=== PATIENT | female | born 1950 | race Caucasian/White ===

== ENCOUNTER 2018-07-11 07:13 | Day surgery (SDC) | payer MEDICARE, OTHER ==
[2018-07-11] VITALS (10 sets, daily range): BP systolic 110–130; BP diastolic 56–67
[~2018-07-11] VITALS: Ht 160 cm; Wt 51.7 kg
[~2018-07-11 07:13] MED LIST: AMIT-189 PO; COMBIVENT INH; Cefazolin 2GM/50ML dext iso,osmotic IVPB IV ONE; EPIN0.3P8 IM; MORP30TA60 PO; OXYC5CAP19 PO; SPIIN INH; VERA-1 PO; famotidine 20mg tablet PO ONE; ringers solution, lacted 1,000 ML IV SCH
[2018-07-11] MEDS ORDERED: ATRIN INH (08:19)
[2018-07-11] MEDS ORDERED: AMIT75TA2 PO (08:23)
[2018-07-11 08:24] LABS: BASOPHILS # (AUTO) 0.1 X10'3 (0-0.2); BASOPHILS % (AUTO) 0.8 % (0-1); EOSINOPHILS # (AUTO) 0.3 X10'3 (0-0.9); EOSINOPHILS % (AUTO) 3.9 % (0-6); LYMPHOCYTES # (AUTO) 1.6 X10'3 (1.1-4.8); LYMPHOCYTES % (AUTO) 24.3 % (21-51); MEAN CORPUSCULAR HGB CONC 32.9 % (33.0-36.5); MEAN PLATELET VOLUME 8.7 FL (7.4-10.4); MONOCYTES # (AUTO) 0.4 X10'3 (0-0.9); MONOCYTES % (AUTO) 6.4 % (2-12); NEUTROPHILS # (AUTO) 4.3 X10'3 (1.8-7.7); NEUTROPHILS % (AUTO) 64.6 % (42-75); PRE OP HEMATOCRIT 33.5 % (35.0-45.0); PRE OP PLATELET COUNT 248 X10'3 (140-440); RED BLOOD COUNT 4.09 X10'6 (4.20-5.60); RED CELL DISTRIBUTION WIDTH 15.8 % (11.5-14.5)
[2018-07-11] MEDS ORDERED: SENN1TAB28 PO (08:28)
[2018-07-11] MEDS ORDERED: ONDA4TAB6 PO (08:29)
[2018-07-11 08:35] LABS: ALBUMIN/GLOBULIN RATIO 0.8 (1.1-1.5); ALKALINE PHOSPHATASE 119 IU/L (46-116); BLOOD UREA NITROGEN 16 MG/DL (7-18); BUN/CREATININE RATIO 15.5 (6.6-38.0); CALCIUM 8.9 MG/DL (8.5-10.1); CHLORIDE 104 MMOL/L (99-107); CREATININE 1.03 MG/DL (0.40-0.90); PRE OP ALT 19 U/L (30-65); PRE OP ANION GAP 8 (8-16); PRE OP AST 22 U/L (10-37); PRE OP BILIRUB, TOTAL 0.3 MG/DL (0.0-1.0); PRE OP GLUCOSE 91 MG/DL (70-104); PRE OP POTASSIUM 4.1 MMOL/L (3.4-5.1); PRE OP SODIUM 139 MMOL/L (135-145); TOTAL CARBON DIOXIDE 26.8 MMOL/L (24-32); TOTAL PROTEIN 6.8 G/DL (6.4-8.2); eGFR 53 ML/MIN
[2018-07-11] MEDS ORDERED: verapamil SR 120mg (sust. release) tab PO STA (09:30)
[2018-07-11] MEDS ORDERED: ondansetron/PF 4mg/2ml inj IV ONE (09:30)
[2018-07-11] MEDS ORDERED: sevoflurane 250ml liquid IH ONE (10:51)
[2018-07-11] MEDS ORDERED: fentaNYL/PF 50MCG/1 ML 2ML syringe ONE (10:58)
[2018-07-11] MEDS ORDERED: propofol inj 20 ML IV ONE (10:58)
[2018-07-11] MEDS ORDERED: midazolam 2 mg/2 ml injection ONE (10:58)
[2018-07-11] MEDS ORDERED: ringers solution, lacted 1,000 ML IV SCH (12:08)
[2018-07-11] MEDS ORDERED: morphine 4 MG/ML inj SYRINge IV PRN ×2 (12:10)
[2018-07-11] MEDS ORDERED: proCHLORperazine 10 MG/2 ml inj IV PRN (12:10)
[2018-07-11] MEDS ORDERED: meperidine/PF 25mg/ml syringe IV PRN ×3 (12:10)
[2018-07-11] MEDS ORDERED: ondansetron/PF 4mg/2ml inj IV PRN (12:10)
== END 2018-07-11 12:50 | disposition home or self-care (01) ==
LOC: PAS 07:13
PROVIDERS: ATTEND Surgery
DX: T81.89XA Other complications of procedures, not elsewhere classified, initial encounter (principal); Y83.8 Other surgical procedures as the cause of abnormal reaction of the patient, or of later complication, without mention of misadventure at the time of the procedure; Y92.89 Other specified places as the place of occurrence of the external cause; G89.29 Other chronic pain; M19.90 Unspecified osteoarthritis, unspecified site; F41.8 Other specified anxiety disorders; I10 Essential (primary) hypertension; J44.9 Chronic obstructive pulmonary disease, unspecified; M06.9 Rheumatoid arthritis, unspecified; F17.210 Nicotine dependence, cigarettes, uncomplicated; F10.21 Alcohol dependence, in remission; K21.9 Gastro-esophageal reflux disease without esophagitis; Z88.5 Allergy status to narcotic agent; Z88.6 Allergy status to analgesic agent; Z91.048 Other nonmedicinal substance allergy status; Z91.030 Bee allergy status; Z87.01 Personal history of pneumonia (recurrent); Z87.11 Personal history of peptic ulcer disease; Z86.69 Personal history of other diseases of the nervous system and sense organs; Z79.891 Long term (current) use of opiate analgesic; Z98.41 Cataract extraction status, right eye; Z98.42 Cataract extraction status, left eye; Z90.710 Acquired absence of both cervix and uterus; Z88.8 Allergy status to other drugs, medicaments and biological substances; Z79.899 Other long term (current) drug therapy; Z98.890 Other specified postprocedural states; Z80.1 Family history of malignant neoplasm of trachea, bronchus and lung
CPT/HCPCS: 11042; 36415; 80053; 85025; A6446; A6449; J0690; J2250; J2405; J2704; J3010; J7120; A7000

== ENCOUNTER 2019-02-05 16:12 | Inpatient (IN) | payer MEDICARE, OTHER ==
[2019-02-05] VITALS (10 sets, daily range): BP systolic 106–148; BP diastolic 39–55
[~2019-02-05] VITALS: Ht 157.5 cm; Wt 60.8 kg
[~2019-02-05 16:12] MED LIST changes: -AMIT-189 PO; +AMIT75TA2 PO; +ATRIN INH; -COMBIVENT INH; -Cefazolin 2GM/50ML dext iso,osmotic IVPB IV ONE; +ONDA4TAB6 PO; +SENN1TAB28 PO; -SPIIN INH; -VERA-1 PO; +VERA240T12 PO; -famotidine 20mg tablet PO ONE; -ringers solution, lacted 1,000 ML IV SCH
[2019-02-05] MEDS ORDERED: normal saline 1000ml 1,000 ML IV ONE (16:13)
[2019-02-05] MEDS ORDERED: albuterol 2.5 MG/3 ML nebule NEB ONE (16:15)
[2019-02-05] MEDS ORDERED: piperacillin/tazo 3.375gm/50ml 50 ML IV ONE (16:20)
[2019-02-05] MEDS ORDERED: GEMF600T89 PO (16:35)
[2019-02-05] MEDS ORDERED: CALC1TAB PO (16:42)
[2019-02-05] MEDS ORDERED: LACT1CAP93 PO (16:42)
[2019-02-05] MEDS ORDERED: BIOT5CAP2 PO (16:42)
[2019-02-05] MEDS ORDERED: OMEG1CAP46 PO (16:42)
[2019-02-05] MEDS ORDERED: CHOL100046 PO (16:42)
[2019-02-05] MEDS ORDERED: morphine 2 MG/ML inj. syringe IV PRN ×4 (17:05→17:15)
[2019-02-05] MEDS ORDERED: morphine 4 MG/ML inj SYRINge IV ONE (17:05)
[2019-02-05] MEDS: normal saline 1000ml 1,000 ML IV SCH ×4 (17:06→23:46)
[2019-02-05] MEDS ORDERED: potassium Cl 40MEQ/250ML bag 250 ML IV SCH (17:10)
[2019-02-05] MEDS ORDERED: morphine 4 MG/ML inj SYRINge IV PRN ×2 (17:10)
[2019-02-05] MEDS ORDERED: potassium Cl 20 mEq SR tablet PO PRN ×2 (17:10)
[2019-02-05] MEDS ORDERED: potassium Cl 40MEQ/250ML bag 250 ML IV PRN (17:10)
[2019-02-05] MEDS ORDERED: potassium Cl 40MEQ/NS 500ml 500 ML IV PRN (17:10)
[2019-02-05] MEDS ORDERED: ondansetron/PF 4mg/2ml inj IV PRN ×3 (17:10→17:15)
[2019-02-05] MEDS ORDERED: magnesium hydroxide 30ml (MOM) UD suspension PO PRN ×2 (17:10)
[2019-02-05] MEDS ORDERED: acetaminophen 325mg tablet PO PRN ×6 (17:10→17:15)
--- NOTE | 2019-02-05 17:19 | NUR ---
IV STARTED IN RIGHT FA AND INFUSING WELL. LABS DRAWN. PATIENT IS NPO FOR SURGERY. AT THE BEDSIDE. MEDICATED FOR PAIN 06/01 WITH MORPHINE.
--- NOTE | 2019-02-05 17:24 | NUR ---
TO SURGERY PER [facility], IN FAIR CONDITION, ACCOMPANIED BY .
[2019-02-05 17:26] LABS: BASOPHILS % (AUTO) 0.2 % (0-1); EOSINOPHILS % (AUTO) 0.1 % (0-6); HEMATOCRIT 31.5 % (35.0-45.0); HEMOGLOBIN 10.3 g/dl (12.0-16.0); LYMPHOCYTES # (AUTO) 0.8 X10'3 (1.1-4.8); LYMPHOCYTES % (AUTO) 7.6 % (21-51); MEAN CORPUSCULAR HEMOGLOBIN 26.5 PG (27.0-31.0); MEAN CORPUSCULAR HGB CONC 32.8 g/dL (33.0-36.5); MEAN PLATELET VOLUME 8.8 FL (7.4-10.4); MONOCYTES # (AUTO) 0.9 X10'3 (0-0.9); MONOCYTES % (AUTO) 9.4 % (2-12); NEUTROPHILS # (AUTO) 8.4 X10'3 (1.8-7.7); NEUTROPHILS % (AUTO) 82.7 % (42-75); PLATELET COUNT 292 X10'3 (140-440); RED BLOOD COUNT 3.89 X10'6 (4.20-5.60); RED CELL DISTRIBUTION WIDTH 16.2 % (11.5-14.5); WHITE BLOOD COUNT 10.1 X10'3 (4.5-11.0)
[2019-02-05 17:30] LABS: INR 1.1 INR; PARTIAL THROMBOPLASTIN TIME 29 SECONDS (22-32)
[2019-02-05 17:33] LABS: ALANINE AMINOTRANSFERASE 17 U/L (12-78); ALBUMIN 2.3 G/DL (3.4-5.0); ALBUMIN/GLOBULIN RATIO 0.5 (1.1-1.5); ALKALINE PHOSPHATASE 131 IU/L (46-116); ANION GAP 9 (8-16); ASPARTATE AMINO TRANSFERASE 33 U/L (10-37); BILIRUBIN,TOTAL 0.8 MG/DL (0.1-1.0); BLOOD UREA NITROGEN 25 MG/DL (7-18); BUN/CREATININE RATIO 20.3 (6.6-38.0); CALCIUM 8.6 MG/DL (8.5-10.1); CHLORIDE 94 MMOL/L (99-107); CREATININE 1.23 MG/DL (0.40-0.90); GLUCOSE 114 MG/DL (70-104); MAGNESIUM 1.5 MG/DL (1.5-2.4); PHOSPHORUS 2.5 MG/DL (2.3-4.5); POTASSIUM 3.4 MMOL/L (3.5-5.1); SODIUM 132 MMOL/L (135-145); TOTAL CARBON DIOXIDE 28.8 MMOL/L (24-32); TOTAL PROTEIN 6.5 G/DL (6.4-8.2); eGFR 43 ML/MIN
[2019-02-05] MEDS ORDERED: sevoflurane 250ml liquid IH ONE (18:05)
[2019-02-05] MEDS ORDERED: fentaNYL /PF 50mcg/ml 5ml ampule IV ONE (18:07)
[2019-02-05] MEDS ORDERED: propofol (Diprivan) 10mg/ml 100ml bottle IV ONE (18:07)
[2019-02-05] MEDS ORDERED: midazolam 2 mg/2 ml injection IV ONE (18:07)
[2019-02-05] MEDS ORDERED: cefotetan 2gm/isosm dext IVPB 50 ML IV ONE (18:15)
[2019-02-05 19:48] LABS: BASOPHILS % (AUTO) 0.3 % (0-1); EOSINOPHILS % (AUTO) 0.1 % (0-6); HEMATOCRIT 23.8 % (35.0-45.0); LYMPHOCYTES # (AUTO) 0.6 X10'3 (1.1-4.8); LYMPHOCYTES % (AUTO) 7.9 % (21-51); MEAN CORPUSCULAR HEMOGLOBIN 26.8 PG (27.0-31.0); MEAN CORPUSCULAR HGB CONC 33.5 g/dL (33.0-36.5); MEAN CORPUSCULAR VOLUME 80.1 FL (78-98); MEAN PLATELET VOLUME 8.5 FL (7.4-10.4); MONOCYTES # (AUTO) 0.9 X10'3 (0-0.9); MONOCYTES % (AUTO) 12.3 % (2-12); NEUTROPHILS # (AUTO) 5.8 X10'3 (1.8-7.7); NEUTROPHILS % (AUTO) 79.4 % (42-75); PLATELET COUNT 199 X10'3 (140-440); RED BLOOD COUNT 2.98 X10'6 (4.20-5.60); RED CELL DISTRIBUTION WIDTH 16.1 % (11.5-14.5); WHITE BLOOD COUNT 7.4 X10'3 (4.5-11.0)
[2019-02-05] MEDS: docusate sod 100mg capsule PO SCH (20:00)
--- NOTE | 2019-02-05 20:00 | NUR ---
received patient from OR accompanied by RN and MD ( anesthesia ), BP stable , report received .
[2019-02-05 20:03] LABS: INR 1.1 INR; PARTIAL THROMBOPLASTIN TIME 29 SECONDS (22-32)
[2019-02-05] MEDS ORDERED: rocuronium bromide 100mg/10ml (10mg/ml) injection IV ONE (20:07)
[2019-02-05] MEDS ORDERED: propofol 10mg/ml 20ml vial IV ONE (20:07)
[2019-02-05] MEDS ORDERED: LIDOcaine 2% (20mg/ml) 5ml vial SQ ONE (20:07)
[2019-02-05 20:10] LABS: ALANINE AMINOTRANSFERASE 14 U/L (12-78); ALBUMIN 1.7 G/DL (3.4-5.0); ALBUMIN/GLOBULIN RATIO 0.5 (1.1-1.5); ALKALINE PHOSPHATASE 95 IU/L (46-116); ANION GAP 9 (8-16); ASPARTATE AMINO TRANSFERASE 25 U/L (10-37); BILIRUBIN,TOTAL 0.5 MG/DL (0.1-1.0); BLOOD UREA NITROGEN 24 MG/DL (7-18); BUN/CREATININE RATIO 20.9 (6.6-38.0); CALCIUM 7.4 MG/DL (8.5-10.1); CHLORIDE 99 MMOL/L (99-107); CREATININE 1.15 MG/DL (0.40-0.90); GLUCOSE 114 MG/DL (70-104); MAGNESIUM 1.2 MG/DL (1.5-2.4); PHOSPHORUS 2.8 MG/DL (2.3-4.5); SODIUM 134 MMOL/L (135-145); TOTAL CARBON DIOXIDE 25.8 MMOL/L (24-32); TOTAL PROTEIN 4.9 G/DL (6.4-8.2); eGFR 47 ML/MIN
[2019-02-05 20:15] LABS: ABG BASE EXCESS -0.7 mmol/L (-2.0-3.0); ABG HCO3 23.5 mmol/L (22.0-26.0); ABG PCO2 (T) 38.6 mmHg (32.0-45.0); ABG PH (T) 7.407 (7.350-7.450); ABG PO2 (T) 128.4 mmHg (83-108); FMetHb 0.2 % (0.3-1.12); FO2Hb 97.8 % (94-100); MINUTE VOLUME 7 L/min; PATIENT TEMPERATURE 38.2; PEEP 5 cm H2O; RESPIRATORY RATE 16 b/min; RESPIRATORY RATE (OBSERVED) 16 b/min; TIDAL VOLUME 450 mL; TOTAL HEMOGLOBIN 9.1 G/dl (12.0-16.0)
[2019-02-05 20:17] LABS: POTASSIUM 2.9 MMOL/L (3.5-5.1)
[2019-02-05] MEDS: potassium Cl 40MEQ/NS 500ml 500 ML IV PRN (21:39)
--- NOTE | 2019-02-05 22:00 | NUR ---
awaken easily , follow commands , nod appropriately to question , wound vac draining good , no blockage noted
[2019-02-06] VITALS (24 sets, daily range): BP systolic 98–145; BP diastolic 40–58
[2019-02-06] MEDS: normal saline 1000ml 1,000 ML IV SCH ×5 (01:14→17:24)
[2019-02-06] MEDS: morphine 4 MG/ML inj SYRINge IV PRN ×2 (01:17→07:40)
[2019-02-06] MEDS: propofol 1000mg/100ml bottle 100 ML IV PRN ×2 (01:17→05:15)
[2019-02-06] MEDS: piperacillin/tazo 3.375gm/50ml 50 ML IV SCH ×3 (01:31→16:00)
[2019-02-06] MEDS: potassium Cl 40MEQ/NS 500ml 500 ML IV PRN (01:32)
[2019-02-06 03:11] LABS: ABG BASE EXCESS 0.4 mmol/L (-2.0-3.0); ABG HCO3 24.4 mmol/L (22.0-26.0); ABG OXYGEN SATURATION 98.4 % (95-98); ABG PCO2 (T) 38.2 mmHg (32.0-45.0); ABG PH (T) 7.428 (7.350-7.450); FMetHb 0.1 % (0.3-1.12); FO2Hb 98.3 % (94-100); MINUTE VOLUME 8 L/min; PATIENT TEMPERATURE 37.9; PEEP 5 cm H2O; RESPIRATORY RATE 16 b/min; RESPIRATORY RATE (OBSERVED) 16 b/min; TIDAL VOLUME 450 mL; TOTAL HEMOGLOBIN 8.7 G/dl (12.0-16.0)
[2019-02-06 06:28] LABS: BASOPHILS % (AUTO) 0.6 % (0-1); EOSINOPHILS # (AUTO) 0.1 X10'3 (0-0.9); EOSINOPHILS % (AUTO) 1.4 % (0-6); HEMATOCRIT 24.6 % (35.0-45.0); LYMPHOCYTES # (AUTO) 0.9 X10'3 (1.1-4.8); LYMPHOCYTES % (AUTO) 14.8 % (21-51); MEAN CORPUSCULAR HEMOGLOBIN 26.6 PG (27.0-31.0); MEAN CORPUSCULAR HGB CONC 32.6 g/dL (33.0-36.5); MEAN CORPUSCULAR VOLUME 81.7 FL (78-98); MEAN PLATELET VOLUME 8.9 FL (7.4-10.4); MONOCYTES % (AUTO) 16.9 % (2-12); NEUTROPHILS % (AUTO) 66.3 % (42-75); PLATELET COUNT 206 X10'3 (140-440); RED BLOOD COUNT 3.01 X10'6 (4.20-5.60); RED CELL DISTRIBUTION WIDTH 16.3 % (11.5-14.5)
--- NOTE | 2019-02-06 06:30 | NUR ---
Patient in room CICU 2010. I have received report from KIMBERLY Butterfield and had the opportunity to ask questions and assume patient care.
--- NOTE | 2019-02-06 06:47 | NUR ---
started beeping blockage on wound vac but continue draining , report to Giovana HARRIS
[2019-02-06 06:49] LABS: ALANINE AMINOTRANSFERASE 14 U/L (12-78); ALBUMIN 1.5 G/DL (3.4-5.0); ALBUMIN/GLOBULIN RATIO 0.4 (1.1-1.5); ALKALINE PHOSPHATASE 98 IU/L (46-116); ANION GAP 9 (8-16); ASPARTATE AMINO TRANSFERASE 25 U/L (10-37); BILIRUBIN,TOTAL 0.5 MG/DL (0.1-1.0); BLOOD UREA NITROGEN 20 MG/DL (7-18); BUN/CREATININE RATIO 19.2 (6.6-38.0); CALCIUM 7.3 MG/DL (8.5-10.1); CHLORIDE 104 MMOL/L (99-107); CREATININE 1.04 MG/DL (0.40-0.90); GLUCOSE 93 MG/DL (70-104); MAGNESIUM 1.4 MG/DL (1.5-2.4); PHOSPHORUS 2.4 MG/DL (2.3-4.5); POTASSIUM 4.4 MMOL/L (3.5-5.1); SODIUM 136 MMOL/L (135-145); TOTAL PROTEIN 4.9 G/DL (6.4-8.2); eGFR 53 ML/MIN
--- NOTE | 2019-02-06 07:15 | NUR ---
Called Dr Casiano regarding wound vac - copious amounts of output in the last 2 hours, almost 200cc, fluid looking more like pus not serosang. Wound vac continuously alarming unable to trouble shoot - I believe the machine cannot keep up with thick output. Surgeon does concur and recommends taking it off and placing an ostomy bag to collect output. States out Addendum: 02/06/19 at 3287 by Deb Montenegro RN cont. States output will decrease over next 24 hours
[2019-02-06 07:16] LABS: TOTAL CELLS COUNTED 100
[2019-02-06 07:17] LABS: ANISOCYTOSIS 1+; PLATELET ESTIMATE NORMAL
[2019-02-06] MEDS: docusate sod 100mg capsule PO SCH ×2 (08:00→20:00)
--- NOTE | 2019-02-06 09:00 | NUR ---
Wound vac taken off, COPIOUS AMOUNTS of yellow brown green fluid coming out of the hole, Dr Murcia at bedside to observe. Site cleaned and skin prep applied, ostomy site applied to collect drainage. I AGAIN communicated my concerns about all the output to Dr Murcia and he agreed that she needs to have a CT of abdomen. He states he will place orders.
[2019-02-06] MEDS ORDERED: racepinephrine 11.25mg/0.5ml nebule NEB PRN (09:20)
[2019-02-06] MEDS ORDERED: naloxone 0.4 mg/ml inj IV PRN (09:20)
[2019-02-06] MEDS ORDERED: ipratropium/albuterol 3ml nebule NEB PRN (09:20)
[2019-02-06] MEDS ORDERED: CADD PCA waste documentation MC PRN (09:20)
[2019-02-06] MEDS: HYDROmorphone/NS 1 mg/ml CADD 50 ML IV SCH ×8 (09:30→22:58)
--- NOTE | 2019-02-06 10:31 | NUR ---
Critical care rounds: discussed and reviewed all systems with team. Reviewed plan to extubate and start CADD pump then go to CT.
--- NOTE | 2019-02-06 10:45 | NUR ---
Pt extubated at 1045 to 2L NC. Alert and oriented, talking, VS stable. Will monitor closely.
--- NOTE | 2019-02-06 14:23 | NUR ---
Initial: Pt admit with abdominal wall abscess/infection now s/p I&D of abscess. Pt documented as having wound VAC however pt no longer with it per RN at critical care rounds. Pt is currently intubated however possibly to extubate today per MD at critical care rounds. TF recommendations below for if prolonged intubation and to receive nutrition support. Recommendations: 1) If prolonged intubation and to receive TF, recommend continuous Vital AF with goal rate of 55 mL/hr to meet 100% estimated nutrient needs 2) If TF, prealbumin q /; daily weights 3) Diet advancement to regular as medically indicated following extubation Addendum: 02/06/19 at [address] Amended: Links added.
--- NOTE | 2019-02-06 15:50 | NUR ---
Dr Casiano at bedside discussing pt status with myself and family. He looked at images, spoke with radiologist, states to draw more blood cultures and ok to have popsicles and sips of fluids only. 50/50 chance of going back to surgery. Will monitor and do a repeat CT in following days. I will inform Dr Casiano of updates.
[2019-02-06] MEDS: ipratropium/albuterol 3ml nebule NEB SCH ×2 (16:26→20:06)
--- NOTE | 2019-02-06 18:30 | NUR ---
Problems reprioritized. Patient report given, questions answered & plan of care reviewed with KIMBERLY Doss.
--- NOTE | 2019-02-06 19:01 | NUR ---
called lab to make sure a tech was coming to draw pt blood cultures, they said someone is coming soon. pt is comfortable, oriented and pain is under control with CADD. no needs at this time
[2019-02-06] MEDS: lactobacillus rhamnosus 10,000 MMU CELLS/CAPSULE PO SCH (20:00)
[2019-02-07] VITALS (16 sets, daily range): BP systolic 95–129; BP diastolic 40–57
[2019-02-07] MEDS: piperacillin/tazo 3.375gm/50ml 50 ML IV SCH ×3 (00:15→17:21)
[2019-02-07] MEDS: HYDROmorphone/NS 1 mg/ml CADD 50 ML IV SCH ×9 (01:00→22:08)
--- NOTE | 2019-02-07 01:14 | NUR ---
pt was able to tolerate a popsicle earlier on in the night. i heard active bowel sounds on the pt as well. i changed the ostomy bag on her surgical site. the skin around the area is intact, the incision is well approximated. cleansed the area with normal saline. the drainage is thick at times and very yellow. the site is somewhat tender. pt is using her dilaudid CADD appropriately. i removed her arterial line in the right wrist, it was not working and was painful for the pt. held pressure to site and applied clear dressing.
[2019-02-07] MEDS: normal saline 1000ml 1,000 ML IV SCH ×3 (01:18→17:21)
[2019-02-07] MEDS: ipratropium/albuterol 3ml nebule NEB SCH ×4 (02:35→21:21)
[2019-02-07 05:38] LABS: BASOPHILS % (AUTO) 0.5 % (0-1); EOSINOPHILS # (AUTO) 0.1 X10'3 (0-0.9); EOSINOPHILS % (AUTO) 1.7 % (0-6); HEMATOCRIT 23.9 % (35.0-45.0); HEMOGLOBIN 7.8 g/dl (12.0-16.0); LYMPHOCYTES # (AUTO) 0.8 X10'3 (1.1-4.8); LYMPHOCYTES % (AUTO) 16.1 % (21-51); MEAN CORPUSCULAR HEMOGLOBIN 26.4 PG (27.0-31.0); MEAN CORPUSCULAR HGB CONC 32.8 g/dL (33.0-36.5); MEAN CORPUSCULAR VOLUME 80.4 FL (78-98); MEAN PLATELET VOLUME 9.5 FL (7.4-10.4); MONOCYTES # (AUTO) 0.8 X10'3 (0-0.9); MONOCYTES % (AUTO) 15.5 % (2-12); NEUTROPHILS # (AUTO) 3.3 X10'3 (1.8-7.7); NEUTROPHILS % (AUTO) 66.2 % (42-75); PLATELET COUNT 198 X10'3 (140-440); RED BLOOD COUNT 2.97 X10'6 (4.20-5.60); RED CELL DISTRIBUTION WIDTH 16.9 % (11.5-14.5)
[2019-02-07 05:42] LABS: ALANINE AMINOTRANSFERASE 16 U/L (12-78); ALBUMIN 1.6 G/DL (3.4-5.0); ALBUMIN/GLOBULIN RATIO 0.5 (1.1-1.5); ALKALINE PHOSPHATASE 96 IU/L (46-116); ANION GAP 10 (8-16); ASPARTATE AMINO TRANSFERASE 26 U/L (10-37); BILIRUBIN,TOTAL 0.4 MG/DL (0.1-1.0); BLOOD UREA NITROGEN 17 MG/DL (7-18); BUN/CREATININE RATIO 20.2 (6.6-38.0); CALCIUM 7.7 MG/DL (8.5-10.1); CHLORIDE 107 MMOL/L (99-107); CREATININE 0.84 MG/DL (0.40-0.90); GLUCOSE 81 MG/DL (70-104); MAGNESIUM 1.7 MG/DL (1.5-2.4); PHOSPHORUS 2.8 MG/DL (2.3-4.5); POTASSIUM 4.1 MMOL/L (3.5-5.1); SODIUM 139 MMOL/L (135-145); TOTAL CARBON DIOXIDE 22.1 MMOL/L (24-32); eGFR 67 ML/MIN
--- NOTE | 2019-02-07 06:30 | NUR ---
rPatient in room NAN 350. I have received report from shift boss and had the opportunity to ask questions and assume patient care.
--- NOTE | 2019-02-07 06:35 | NUR ---
Problems reprioritized. Patient report given, questions answered & plan of care reviewed with MARISOL HARRIS.
--- NOTE | 2019-02-07 08:00 | NUR ---
assisted up to chair, tolerated well, using incentive spirometer up to 1000cc and flutter valve, using cadd pump for pain control
[2019-02-07] MEDS: docusate sod 100mg capsule PO SCH ×2 (09:54→20:38)
[2019-02-07] MEDS: lactobacillus rhamnosus 10,000 MMU CELLS/CAPSULE PO SCH ×2 (09:54→20:39)
[2019-02-07] MEDS ORDERED: non-formulary drug (Oxycodone HCl 1 CAP) PO PRN (12:40)
[2019-02-07] MEDS ORDERED: non-formulary drug (Ondansetron Hcl (Zofran) 1 TAB) PO PRN (12:40)
[2019-02-07] MEDS ORDERED: EPINEPHRINE 0.3 MG IM PRN (12:40)
[2019-02-07] MEDS ORDERED: oxyCODONE IR 5mg (immed. release) tablet PO PRN (12:55)
[2019-02-07] MEDS ORDERED: ondansetron 4mg rapidly disintigrating tab PO PRN ×2 (12:55)
--- NOTE | 2019-02-07 14:15 | NUR ---
mateo discontinued without problems, tolerated lunch well, passing flatus, transfered to surgical floor, walked 25 feet in unit assisted to wheelchair and transfer to surgical floor, all belongings present with patient.
--- NOTE | 2019-02-07 18:22 | NUR ---
Problems reprioritized. Patient report given, questions answered & plan of care reviewed with dalia mckeon rn.
--- NOTE | 2019-02-07 18:34 | NUR ---
Patient in room NAN 350. I have received report from KIMBERLY Boyd and had the opportunity to ask questions and assume patient care. Addendum: 02/07/19 at 1834 by Luana Briones RN Amended: Links added.
[2019-02-07] MEDS ORDERED: VERAPAMIL HCL PO SCH (20:00)
[2019-02-07] MEDS ORDERED: CALCIUM CARBONATE PO SCH (20:00)
[2019-02-07] MEDS ORDERED: VITAMIN D3 PO SCH (20:00)
[2019-02-07] MEDS ORDERED: VIT D PO SCH (20:00)
[2019-02-07] MEDS: calcium carbonate/vitamin D3 tablet PO SCH (20:38)
[2019-02-07] MEDS: verapamil SR 120mg (sust. release) tab PO SCH (20:39)
[2019-02-07] MEDS: morphine ER 30mg tablet PO SCH (22:05)
--- NOTE | 2019-02-07 22:05 | NUR ---
Dilaudid CADD was stopped (on hold), pt PO morphine given as scheduled, witnessed with KIMBERLY Caruso. pt agreed an in no acute distress.
[2019-02-07] MEDS: oxyCODONE IR 5mg (immed. release) tablet PO PRN (23:56)
[2019-02-08] VITALS: BP 101/50
[2019-02-08] MEDS: piperacillin/tazo 3.375gm/50ml 50 ML IV SCH ×3 (00:56→16:45)
[2019-02-08] MEDS: normal saline 1000ml 1,000 ML IV SCH ×4 (01:14→19:17)
[2019-02-08] MEDS: HYDROmorphone/NS 1 mg/ml CADD 50 ML IV SCH ×2 (03:00→04:38)
--- NOTE | 2019-02-08 03:15 | NUR ---
CADD settings check and hasnt changed from previous one at 2300, still on hold or at stopped
[2019-02-08] MEDS: ipratropium/albuterol 3ml nebule NEB SCH ×4 (04:00→20:58)
[2019-02-08] MEDS: oxyCODONE IR 5mg (immed. release) tablet PO PRN ×3 (05:53→19:16)
[2019-02-08 05:58] LABS: BASOPHILS % (AUTO) 0.6 % (0-1); EOSINOPHILS # (AUTO) 0.3 X10'3 (0-0.9); EOSINOPHILS % (AUTO) 5.3 % (0-6); HEMATOCRIT 25.5 % (35.0-45.0); HEMOGLOBIN 8.3 g/dl (12.0-16.0); LYMPHOCYTES # (AUTO) 1.1 X10'3 (1.1-4.8); LYMPHOCYTES % (AUTO) 18.9 % (21-51); MEAN CORPUSCULAR HEMOGLOBIN 26.2 PG (27.0-31.0); MEAN CORPUSCULAR HGB CONC 32.3 g/dL (33.0-36.5); MEAN PLATELET VOLUME 9.3 FL (7.4-10.4); MONOCYTES # (AUTO) 0.7 X10'3 (0-0.9); MONOCYTES % (AUTO) 12.8 % (2-12); NEUTROPHILS # (AUTO) 3.6 X10'3 (1.8-7.7); NEUTROPHILS % (AUTO) 62.4 % (42-75); PLATELET COUNT 246 X10'3 (140-440); RED BLOOD COUNT 3.15 X10'6 (4.20-5.60); RED CELL DISTRIBUTION WIDTH 16.8 % (11.5-14.5); WHITE BLOOD COUNT 5.7 X10'3 (4.5-11.0)
[2019-02-08 06:05] LABS: ALANINE AMINOTRANSFERASE 15 U/L (12-78); ALBUMIN 1.6 G/DL (3.4-5.0); ALBUMIN/GLOBULIN RATIO 0.4 (1.1-1.5); ALKALINE PHOSPHATASE 99 IU/L (46-116); ANION GAP 7 (8-16); ASPARTATE AMINO TRANSFERASE 24 U/L (10-37); BILIRUBIN,TOTAL 0.4 MG/DL (0.1-1.0); BLOOD UREA NITROGEN 11 MG/DL (7-18); BUN/CREATININE RATIO 13.6 (6.6-38.0); CALCIUM 8.4 MG/DL (8.5-10.1); CHLORIDE 109 MMOL/L (99-107); CREATININE 0.81 MG/DL (0.40-0.90); GLUCOSE 94 MG/DL (70-104); MAGNESIUM 1.6 MG/DL (1.5-2.4); PHOSPHORUS 2.8 MG/DL (2.3-4.5); SODIUM 141 MMOL/L (135-145); TOTAL CARBON DIOXIDE 24.6 MMOL/L (24-32); TOTAL PROTEIN 5.3 G/DL (6.4-8.2); eGFR 70 ML/MIN
--- NOTE | 2019-02-08 06:31 | NUR ---
Problems reprioritized. Patient report given, questions answered & plan of care reviewed with KIMBERLY Boyd. AT around 0500, patient ambulated and tolerated well about 200ft Addendum: 02/08/19 at 0632 by Luana Briones RN Amended: Links added.
[2019-02-08 07:00] VITALS: BP 118/74
[2019-02-08] MEDS: verapamil SR 120mg (sust. release) tab PO SCH ×2 (07:55→20:23)
[2019-02-08] MEDS: docusate sod 100mg capsule PO SCH ×2 (07:56→20:24)
[2019-02-08] MEDS: vitamin D (cholecalciferol) 1,000 unit tablet PO SCH (07:56)
[2019-02-08] MEDS: calcium carbonate/vitamin D3 tablet PO SCH ×2 (07:56→20:24)
[2019-02-08] MEDS: morphine ER 30mg tablet PO SCH ×2 (07:56→20:24)
[2019-02-08] MEDS: lactobacillus rhamnosus 10,000 MMU CELLS/CAPSULE PO SCH ×2 (07:56→20:24)
[2019-02-08] MEDS: gemfibrozil 600mg tablet PO SCH (07:56)
[2019-02-08] MEDS ORDERED: lactobacillus rhamnosus 10,000 MMU CELLS/CAPSULE PO SCH (08:00)
[2019-02-08] MEDS ORDERED: BIOTIN PO SCH (08:00)
[2019-02-08] MEDS: OMEGA-3/DHA/EPA/FISH OIL 1 EACH CAPSULE.DR PO SCH (08:00)
[2019-02-08] MEDS ORDERED: [UNRECOGNIZED DRUG - REMARK] PO SCH (08:00)
[2019-02-08 12:00] VITALS: BP 133/64
--- NOTE | 2019-02-08 12:38 | NUR ---
Reassessment: Pt has been extubated and transferred to surgical floor. Diet has been advanced to regular with 50-75% intake first meal. Per MD notes drainage of wound site is well controlled by an ostomy bag. JOVITA 02/07. Will continue to follow. Recommendations: 1) Continue with regular diet 2) Monitor need for ONS 3) Wt per rx Addendum: 02/08/19 at [address] Amended: Links added.
--- NOTE | 2019-02-08 18:18 | NUR ---
Problems reprioritized. Patient report given, questions answered & plan of care reviewed with dalia mckeon rn.
--- NOTE | 2019-02-08 18:21 | NUR ---
Patient in room NAN 354. I have received report from KIMBERLY Boyd and had the opportunity to ask questions and assume patient care. Addendum: 02/08/19 at 1821 by Luana Briones RN Amended: Links added.
[2019-02-08 20:00] VITALS: BP 137/46
[2019-02-09] MEDS: piperacillin/tazo 3.375gm/50ml 50 ML IV SCH ×3 (00:41→17:27)
[2019-02-09 00:50] VITALS: BP 125/50
[2019-02-09] MEDS: ipratropium/albuterol 3ml nebule NEB SCH ×4 (02:31→20:36)
[2019-02-09] MEDS: oxyCODONE IR 5mg (immed. release) tablet PO PRN ×3 (03:06→22:39)
[2019-02-09 04:04] LABS: BASOPHILS % (AUTO) 0.7 % (0-1); EOSINOPHILS # (AUTO) 0.3 X10'3 (0-0.9); EOSINOPHILS % (AUTO) 4.2 % (0-6); HEMOGLOBIN 8.4 g/dl (12.0-16.0); LYMPHOCYTES # (AUTO) 1.4 X10'3 (1.1-4.8); LYMPHOCYTES % (AUTO) 20.6 % (21-51); MEAN CORPUSCULAR HEMOGLOBIN 26.1 PG (27.0-31.0); MEAN CORPUSCULAR HGB CONC 32.4 g/dL (33.0-36.5); MEAN CORPUSCULAR VOLUME 80.7 FL (78-98); MONOCYTES % (AUTO) 13.9 % (2-12); NEUTROPHILS # (AUTO) 4.2 X10'3 (1.8-7.7); NEUTROPHILS % (AUTO) 60.6 % (42-75); PLATELET COUNT 269 X10'3 (140-440); RED BLOOD COUNT 3.23 X10'6 (4.20-5.60); RED CELL DISTRIBUTION WIDTH 16.7 % (11.5-14.5)
[2019-02-09 04:26] LABS: ALANINE AMINOTRANSFERASE 16 U/L (12-78); ALBUMIN 1.7 G/DL (3.4-5.0); ALBUMIN/GLOBULIN RATIO 0.5 (1.1-1.5); ALKALINE PHOSPHATASE 94 IU/L (46-116); ANION GAP 8 (8-16); ASPARTATE AMINO TRANSFERASE 21 U/L (10-37); BILIRUBIN,TOTAL 0.4 MG/DL (0.1-1.0); BLOOD UREA NITROGEN 8 MG/DL (7-18); BUN/CREATININE RATIO 9.8 (6.6-38.0); CALCIUM 8.4 MG/DL (8.5-10.1); CHLORIDE 108 MMOL/L (99-107); CREATININE 0.82 MG/DL (0.40-0.90); GLUCOSE 120 MG/DL (70-104); MAGNESIUM 1.4 MG/DL (1.5-2.4); PHOSPHORUS 2.9 MG/DL (2.3-4.5); POTASSIUM 3.9 MMOL/L (3.5-5.1); SODIUM 139 MMOL/L (135-145); TOTAL CARBON DIOXIDE 22.7 MMOL/L (24-32); TOTAL PROTEIN 5.4 G/DL (6.4-8.2); eGFR 69 ML/MIN
[2019-02-09] MEDS: normal saline 1000ml 1,000 ML IV SCH ×3 (04:41→22:38)
--- NOTE | 2019-02-09 06:33 | NUR ---
Problems reprioritized. Patient report given, questions answered & plan of care reviewed with KIMBERLY Marino. Addendum: 02/09/19 at 0633 by Luana Briones RN Amended: Links added.
[2019-02-09 07:14] VITALS: BP 101/50
[2019-02-09] MEDS: gemfibrozil 600mg tablet PO SCH (08:00)
[2019-02-09] MEDS: OMEGA-3/DHA/EPA/FISH OIL 1 EACH CAPSULE.DR PO SCH (08:00)
[2019-02-09] MEDS: docusate sod 100mg capsule PO SCH ×2 (08:18→20:45)
[2019-02-09] MEDS: calcium carbonate/vitamin D3 tablet PO SCH ×2 (08:18→20:45)
[2019-02-09] MEDS: verapamil SR 120mg (sust. release) tab PO SCH ×2 (08:19→20:45)
[2019-02-09] MEDS: vitamin D (cholecalciferol) 1,000 unit tablet PO SCH (08:19)
[2019-02-09] MEDS: morphine ER 30mg tablet PO SCH ×2 (08:19→20:45)
[2019-02-09] MEDS: lactobacillus rhamnosus 10,000 MMU CELLS/CAPSULE PO SCH ×2 (08:20→20:45)
[2019-02-09] MEDS ORDERED: magnesium hydroxide 30ml (MOM) UD suspension PO ONE (13:20)
[2019-02-09] MEDS: magnesium Cl slow-release 64mg tablet PO PRN (17:26)
--- NOTE | 2019-02-09 18:00 | NUR ---
Problems reprioritized. Patient report given, questions answered & plan of care reviewed with TONJA HARRIS. PT AWAKE IN CHAIR, NO NEW NEEDS.
--- NOTE | 2019-02-09 18:30 | NUR ---
Patient in room NAN 354. I have received report from KIMBERLY Marino and had the opportunity to ask questions and assume patient care. Addendum: 02/09/19 at 1830 by Luana Briones RN Amended: Links added.
[2019-02-09 19:08] VITALS: BP 120/47
[2019-02-09 20:00] VITALS: BP 140/67
[2019-02-10] VITALS: BP 128/54
[2019-02-10] MEDS: piperacillin/tazo 3.375gm/50ml 50 ML IV SCH ×4 (00:28→23:08)
[2019-02-10] MEDS: ipratropium/albuterol 3ml nebule NEB SCH ×4 (03:09→21:21)
[2019-02-10 05:32] LABS: BASOPHILS # (AUTO) 0.1 X10'3 (0-0.2); BASOPHILS % (AUTO) 0.7 % (0-1); EOSINOPHILS # (AUTO) 0.3 X10'3 (0-0.9); EOSINOPHILS % (AUTO) 3.6 % (0-6); HEMATOCRIT 25.1 % (35.0-45.0); HEMOGLOBIN 8.2 g/dl (12.0-16.0); LYMPHOCYTES # (AUTO) 1.6 X10'3 (1.1-4.8); LYMPHOCYTES % (AUTO) 19.4 % (21-51); MEAN CORPUSCULAR HEMOGLOBIN 26.3 PG (27.0-31.0); MEAN CORPUSCULAR HGB CONC 32.5 g/dL (33.0-36.5); MEAN CORPUSCULAR VOLUME 80.9 FL (78-98); MEAN PLATELET VOLUME 9.4 FL (7.4-10.4); MONOCYTES % (AUTO) 12.7 % (2-12); NEUTROPHILS # (AUTO) 5.2 X10'3 (1.8-7.7); NEUTROPHILS % (AUTO) 63.6 % (42-75); PLATELET COUNT 286 X10'3 (140-440); RED BLOOD COUNT 3.11 X10'6 (4.20-5.60); RED CELL DISTRIBUTION WIDTH 16.4 % (11.5-14.5); WHITE BLOOD COUNT 8.2 X10'3 (4.5-11.0)
[2019-02-10] MEDS: oxyCODONE IR 5mg (immed. release) tablet PO PRN ×2 (05:39→22:32)
[2019-02-10 05:52] LABS: ALANINE AMINOTRANSFERASE 14 U/L (12-78); ALBUMIN 1.7 G/DL (3.4-5.0); ALBUMIN/GLOBULIN RATIO 0.5 (1.1-1.5); ALKALINE PHOSPHATASE 90 IU/L (46-116); ANION GAP 8 (8-16); ASPARTATE AMINO TRANSFERASE 19 U/L (10-37); BILIRUBIN,TOTAL 0.3 MG/DL (0.1-1.0); BLOOD UREA NITROGEN 7 MG/DL (7-18); BUN/CREATININE RATIO 8.8 (6.6-38.0); CHLORIDE 108 MMOL/L (99-107); GLUCOSE 117 MG/DL (70-104); MAGNESIUM 1.4 MG/DL (1.5-2.4); PHOSPHORUS 2.8 MG/DL (2.3-4.5); POTASSIUM 3.7 MMOL/L (3.5-5.1); SODIUM 139 MMOL/L (135-145); TOTAL PROTEIN 5.2 G/DL (6.4-8.2); eGFR 71 ML/MIN
--- NOTE | 2019-02-10 06:41 | NUR ---
Problems reprioritized. Patient report given, questions answered & plan of care reviewed with KIMBERLY Kim.
[2019-02-10 07:00] VITALS: BP 142/67
[2019-02-10] MEDS: docusate sod 100mg capsule PO SCH ×2 (08:00→19:32)
[2019-02-10] MEDS: calcium carbonate/vitamin D3 tablet PO SCH ×2 (08:40→19:33)
[2019-02-10] MEDS: vitamin D (cholecalciferol) 1,000 unit tablet PO SCH (08:40)
[2019-02-10] MEDS: methylnaltrexone br 12mg/0.6ml inj***SubQ only SQ SCH (08:40)
[2019-02-10] MEDS: lactobacillus rhamnosus 10,000 MMU CELLS/CAPSULE PO SCH ×2 (08:41→19:32)
[2019-02-10] MEDS: morphine ER 30mg tablet PO SCH ×2 (08:41→19:33)
[2019-02-10] MEDS: verapamil SR 120mg (sust. release) tab PO SCH ×2 (08:41→19:33)
[2019-02-10] MEDS: OMEGA-3/DHA/EPA/FISH OIL 1 EACH CAPSULE.DR PO SCH (08:41)
[2019-02-10 11:00] VITALS: BP 137/59
[2019-02-10] MEDS: normal saline 1000ml 1,000 ML IV SCH ×2 (13:56→19:32)
[2019-02-10] MEDS: magnesium Cl slow-release 64mg tablet PO PRN (17:55)
--- NOTE | 2019-02-10 18:36 | NUR ---
Problems reprioritized. Patient report given, questions answered & plan of care reviewed with dalia rendon.
[2019-02-10 19:23] VITALS: BP 130/59
--- NOTE | 2019-02-10 19:35 | NUR ---
Patient still working on dinner tray. Will come back and assess shortly.
[2019-02-10] MEDS ORDERED: ZOLP5TAB2 PO (22:58)
--- NOTE | 2019-02-10 23:03 | NUR ---
Pt req sleeping pill. Takes ambien 5mg PRN at home. Last taken about 1 month ago. Notified Graciela. Asked that I add to reconciled meds so she may continue.
[2019-02-10] MEDS: zolpidem 5mg tablet PO PRN (23:08)
[2019-02-11] VITALS: BP 112/44
[2019-02-11] MEDS: normal saline 1000ml 1,000 ML IV SCH ×4 (01:14→20:47)
[2019-02-11] MEDS: ipratropium/albuterol 3ml nebule NEB SCH ×4 (03:33→22:13)
--- NOTE | 2019-02-11 06:20 | NUR ---
Patient in room NAN 354. I have received report from KIMBERLY Infante and had the opportunity to ask questions and assume patient care.
[2019-02-11 06:30] VITALS: BP 162/69
[2019-02-11 06:32] LABS: BASOPHILS % (AUTO) 0.5 % (0-1); EOSINOPHILS # (AUTO) 0.3 X10'3 (0-0.9); EOSINOPHILS % (AUTO) 3.7 % (0-6); HEMATOCRIT 24.8 % (35.0-45.0); HEMOGLOBIN 8.1 g/dl (12.0-16.0); LYMPHOCYTES # (AUTO) 1.4 X10'3 (1.1-4.8); LYMPHOCYTES % (AUTO) 17.5 % (21-51); MEAN CORPUSCULAR HEMOGLOBIN 26.4 PG (27.0-31.0); MEAN CORPUSCULAR HGB CONC 32.5 g/dL (33.0-36.5); MEAN CORPUSCULAR VOLUME 81.3 FL (78-98); MONOCYTES % (AUTO) 12.4 % (2-12); NEUTROPHILS # (AUTO) 5.3 X10'3 (1.8-7.7); NEUTROPHILS % (AUTO) 65.9 % (42-75); PLATELET COUNT 272 X10'3 (140-440); RED BLOOD COUNT 3.05 X10'6 (4.20-5.60); RED CELL DISTRIBUTION WIDTH 16.4 % (11.5-14.5); WHITE BLOOD COUNT 8.1 X10'3 (4.5-11.0)
--- NOTE | 2019-02-11 06:44 | NUR ---
Problems reprioritized. Patient report given, questions answered & plan of care reviewed with Ayana Swanson.
[2019-02-11 07:05] LABS: ALANINE AMINOTRANSFERASE 14 U/L (12-78); ALBUMIN 1.6 G/DL (3.4-5.0); ALBUMIN/GLOBULIN RATIO 0.5 (1.1-1.5); ALKALINE PHOSPHATASE 88 IU/L (46-116); ANION GAP 8 (8-16); ASPARTATE AMINO TRANSFERASE 17 U/L (10-37); BILIRUBIN,TOTAL 0.2 MG/DL (0.1-1.0); BLOOD UREA NITROGEN 7 MG/DL (7-18); BUN/CREATININE RATIO 8.1 (6.6-38.0); CALCIUM 8.1 MG/DL (8.5-10.1); CHLORIDE 108 MMOL/L (99-107); CREATININE 0.86 MG/DL (0.40-0.90); GLUCOSE 103 MG/DL (70-104); MAGNESIUM 1.5 MG/DL (1.5-2.4); PHOSPHORUS 3.1 MG/DL (2.3-4.5); POTASSIUM 3.9 MMOL/L (3.5-5.1); SODIUM 137 MMOL/L (135-145); TOTAL CARBON DIOXIDE 21.3 MMOL/L (24-32); TOTAL PROTEIN 5.1 G/DL (6.4-8.2); eGFR 65 ML/MIN
[2019-02-11] MEDS: calcium carbonate/vitamin D3 tablet PO SCH ×2 (08:28→20:48)
[2019-02-11] MEDS: verapamil SR 120mg (sust. release) tab PO SCH ×2 (08:28→20:48)
[2019-02-11] MEDS: lactobacillus rhamnosus 10,000 MMU CELLS/CAPSULE PO SCH ×2 (08:28→20:48)
[2019-02-11] MEDS: vitamin D (cholecalciferol) 1,000 unit tablet PO SCH (08:28)
[2019-02-11] MEDS: docusate sod 100mg capsule PO SCH ×2 (08:28→20:48)
[2019-02-11] MEDS: piperacillin/tazo 3.375gm/50ml 50 ML IV SCH ×2 (08:29→16:39)
[2019-02-11] MEDS: morphine ER 30mg tablet PO SCH ×2 (08:29→20:48)
[2019-02-11] MEDS: OMEGA-3/DHA/EPA/FISH OIL 1 EACH CAPSULE.DR PO SCH (09:32)
[2019-02-11 11:31] VITALS: BP 128/60
[2019-02-11] MEDS: oxyCODONE IR 5mg (immed. release) tablet PO PRN (16:51)
--- NOTE | 2019-02-11 18:05 | NUR ---
Problems reprioritized. Patient report given, questions answered & plan of care reviewed with Emili RN & Curt RN.
[2019-02-11 20:00] VITALS: BP 148/69
[2019-02-11] MEDS: zolpidem 5mg tablet PO PRN (23:59)
[2019-02-12] VITALS: BP 144/60
[2019-02-12] MEDS: piperacillin/tazo 3.375gm/50ml 50 ML IV SCH ×3 (00:02→16:31)
[2019-02-12] MEDS: ipratropium/albuterol 3ml nebule NEB SCH ×4 (03:47→21:16)
[2019-02-12] MEDS: normal saline 1000ml 1,000 ML IV SCH ×3 (04:17→20:12)
[2019-02-12 04:49] LABS: BASOPHILS % (AUTO) 0.4 % (0-1); EOSINOPHILS # (AUTO) 0.4 X10'3 (0-0.9); EOSINOPHILS % (AUTO) 5.1 % (0-6); HEMATOCRIT 26.2 % (35.0-45.0); HEMOGLOBIN 8.6 g/dl (12.0-16.0); LYMPHOCYTES # (AUTO) 1.5 X10'3 (1.1-4.8); LYMPHOCYTES % (AUTO) 19.7 % (21-51); MEAN CORPUSCULAR HEMOGLOBIN 26.3 PG (27.0-31.0); MEAN CORPUSCULAR HGB CONC 32.9 g/dL (33.0-36.5); MEAN PLATELET VOLUME 8.3 FL (7.4-10.4); MONOCYTES % (AUTO) 13.3 % (2-12); NEUTROPHILS # (AUTO) 4.8 X10'3 (1.8-7.7); NEUTROPHILS % (AUTO) 61.5 % (42-75); PLATELET COUNT 280 X10'3 (140-440); RED BLOOD COUNT 3.28 X10'6 (4.20-5.60); RED CELL DISTRIBUTION WIDTH 16.8 % (11.5-14.5); WHITE BLOOD COUNT 7.8 X10'3 (4.5-11.0)
[2019-02-12 05:00] LABS: ALANINE AMINOTRANSFERASE 14 U/L (12-78); ALBUMIN 1.6 G/DL (3.4-5.0); ALBUMIN/GLOBULIN RATIO 0.5 (1.1-1.5); ALKALINE PHOSPHATASE 93 IU/L (46-116); ANION GAP 10 (8-16); ASPARTATE AMINO TRANSFERASE 16 U/L (10-37); BILIRUBIN,TOTAL 0.3 MG/DL (0.1-1.0); BLOOD UREA NITROGEN 6 MG/DL (7-18); BUN/CREATININE RATIO 6.8 (6.6-38.0); CALCIUM 7.7 MG/DL (8.5-10.1); CHLORIDE 108 MMOL/L (99-107); CREATININE 0.88 MG/DL (0.40-0.90); GLUCOSE 97 MG/DL (70-104); MAGNESIUM 1.5 MG/DL (1.5-2.4); POTASSIUM 3.6 MMOL/L (3.5-5.1); SODIUM 141 MMOL/L (135-145); TOTAL CARBON DIOXIDE 23.2 MMOL/L (24-32); TOTAL PROTEIN 5.1 G/DL (6.4-8.2); eGFR 64 ML/MIN
--- NOTE | 2019-02-12 06:59 | NUR ---
Problems reprioritized. Patient report given, questions answered & plan of care reviewed with KIMBERLY Larson.
[2019-02-12 07:00] VITALS: BP 113/56
--- NOTE | 2019-02-12 07:09 | NUR ---
Patient in room NAN 354. I have received report from Emili Lopez RN and had the opportunity to ask questions and assume patient care.
[2019-02-12] MEDS: methylnaltrexone br 12mg/0.6ml inj***SubQ only SQ SCH (08:00)
[2019-02-12] MEDS: calcium carbonate/vitamin D3 tablet PO SCH ×2 (08:34→19:02)
[2019-02-12] MEDS: vitamin D (cholecalciferol) 1,000 unit tablet PO SCH (08:34)
[2019-02-12] MEDS: verapamil SR 120mg (sust. release) tab PO SCH ×2 (08:34→19:02)
[2019-02-12] MEDS: OMEGA-3/DHA/EPA/FISH OIL 1 EACH CAPSULE.DR PO SCH (08:34)
[2019-02-12] MEDS: morphine ER 30mg tablet PO SCH ×2 (08:34→19:02)
[2019-02-12] MEDS: docusate sod 100mg capsule PO SCH ×2 (08:34→19:02)
[2019-02-12] MEDS: lactobacillus rhamnosus 10,000 MMU CELLS/CAPSULE PO SCH ×2 (08:35→19:02)
[2019-02-12 11:00] VITALS: BP 130/54
[2019-02-12] MEDS: oxyCODONE IR 5mg (immed. release) tablet PO PRN ×2 (12:14→22:47)
--- NOTE | 2019-02-12 18:29 | NUR ---
Problems reprioritized. Patient report given, questions answered & plan of care reviewed with Emili Lopez RN.
[2019-02-12 19:09] VITALS: BP 148/81
[2019-02-12 20:00] VITALS: BP_SYST 135; BP_SYST 136; BP_DIAS 57; BP_DIAS 83
[2019-02-12 23:44] VITALS: BP 122/65
[2019-02-13] MEDS: zolpidem 5mg tablet PO PRN ×2 (00:31→23:41)
[2019-02-13] MEDS: piperacillin/tazo 3.375gm/50ml 50 ML IV SCH ×4 (00:32→23:41)
[2019-02-13] MEDS: ipratropium/albuterol 3ml nebule NEB SCH ×4 (02:53→21:17)
[2019-02-13] MEDS: oxyCODONE IR 5mg (immed. release) tablet PO PRN ×2 (04:06→23:41)
[2019-02-13] MEDS: normal saline 1000ml 1,000 ML IV SCH ×2 (04:13→15:33)
[2019-02-13 05:21] LABS: BASOPHILS # (AUTO) 0.1 X10'3 (0-0.2); BASOPHILS % (AUTO) 0.6 % (0-1); EOSINOPHILS # (AUTO) 0.4 X10'3 (0-0.9); EOSINOPHILS % (AUTO) 4.4 % (0-6); HEMATOCRIT 26.1 % (35.0-45.0); HEMOGLOBIN 8.6 g/dl (12.0-16.0); LYMPHOCYTES # (AUTO) 1.5 X10'3 (1.1-4.8); LYMPHOCYTES % (AUTO) 16.2 % (21-51); MEAN CORPUSCULAR HEMOGLOBIN 26.5 PG (27.0-31.0); MEAN CORPUSCULAR HGB CONC 33.1 g/dL (33.0-36.5); MEAN PLATELET VOLUME 8.4 FL (7.4-10.4); MONOCYTES % (AUTO) 10.5 % (2-12); NEUTROPHILS # (AUTO) 6.5 X10'3 (1.8-7.7); NEUTROPHILS % (AUTO) 68.3 % (42-75); PLATELET COUNT 303 X10'3 (140-440); RED BLOOD COUNT 3.26 X10'6 (4.20-5.60); RED CELL DISTRIBUTION WIDTH 16.8 % (11.5-14.5); WHITE BLOOD COUNT 9.5 X10'3 (4.5-11.0)
[2019-02-13 05:46] LABS: ALANINE AMINOTRANSFERASE 13 U/L (12-78); ALBUMIN 1.7 G/DL (3.4-5.0); ALBUMIN/GLOBULIN RATIO 0.5 (1.1-1.5); ALKALINE PHOSPHATASE 98 IU/L (46-116); ANION GAP 8 (8-16); ASPARTATE AMINO TRANSFERASE 17 U/L (10-37); BILIRUBIN,TOTAL 0.2 MG/DL (0.1-1.0); BLOOD UREA NITROGEN 6 MG/DL (7-18); BUN/CREATININE RATIO 7.1 (6.6-38.0); CALCIUM 7.9 MG/DL (8.5-10.1); CHLORIDE 107 MMOL/L (99-107); CREATININE 0.84 MG/DL (0.40-0.90); GLUCOSE 106 MG/DL (70-104); MAGNESIUM 1.4 MG/DL (1.5-2.4); PHOSPHORUS 2.9 MG/DL (2.3-4.5); POTASSIUM 3.5 MMOL/L (3.5-5.1); SODIUM 138 MMOL/L (135-145); TOTAL CARBON DIOXIDE 22.6 MMOL/L (24-32); TOTAL PROTEIN 5.4 G/DL (6.4-8.2); eGFR 67 ML/MIN
--- NOTE | 2019-02-13 06:33 | NUR ---
Problems reprioritized. Patient report given, questions answered & plan of care reviewed with KIMBERLY Larson.
--- NOTE | 2019-02-13 06:48 | NUR ---
Patient in room NAN 354. I have received report from Emili Lopez RN and had the opportunity to ask questions and assume patient care.
[2019-02-13 07:00] VITALS: BP 133/57
[2019-02-13] MEDS: calcium carbonate/vitamin D3 tablet PO SCH ×2 (08:54→19:41)
[2019-02-13] MEDS: morphine ER 30mg tablet PO SCH ×2 (08:54→19:40)
[2019-02-13] MEDS: lactobacillus rhamnosus 10,000 MMU CELLS/CAPSULE PO SCH ×2 (08:54→19:38)
[2019-02-13] MEDS: vitamin D (cholecalciferol) 1,000 unit tablet PO SCH (08:55)
[2019-02-13] MEDS: verapamil SR 120mg (sust. release) tab PO SCH ×2 (08:55→19:39)
[2019-02-13] MEDS: OMEGA-3/DHA/EPA/FISH OIL 1 EACH CAPSULE.DR PO SCH (09:00)
[2019-02-13] MEDS: docusate sod 100mg capsule PO SCH ×2 (09:00→19:40)
[2019-02-13 11:00] VITALS: BP 136/98
--- NOTE | 2019-02-13 15:54 | NUR ---
Dr. Espinosa noted the urine culture result, he recommended Cipro PO but I was asked to check with Dr. Murcia. Dr. Murcia notified about this, he said he will take care of it Addendum: 02/13/19 at 1703 by Xenia Linder RN Correction: not urine culture but abdominal wound culture
--- NOTE | 2019-02-13 17:00 | NUR ---
Reassessment: Pt continues on regular diet with documented 50% PO intake not meeting nutrient needs. Pt would benefit from Ensure Enlive to meet increased protein needs for wound healing, MD schmid. Per MD notes pt has no signs of systemic infection or sepsis. Pt continues with ostomy bag to wound and will continue present management per MD notes. [facility] 02/12. Will continue to follow. Recommendations: 1) Continue with regular diet 2) Ensure Enlive TID 3) Wt per rx Addendum: 02/13/19 at [address] Amended: Links added.
--- NOTE | 2019-02-13 18:23 | NUR ---
Problems reprioritized. Patient report given, questions answered & plan of care reviewed with Yris HARRIS.
[2019-02-13 20:00] VITALS: BP 152/58
[2019-02-14] VITALS: BP 150/63
[2019-02-14] MEDS: ipratropium/albuterol 3ml nebule NEB SCH ×2 (03:05→08:15)
[2019-02-14 05:17] LABS: BASOPHILS # (AUTO) 0.1 X10'3 (0-0.2); BASOPHILS % (AUTO) 0.4 % (0-1); EOSINOPHILS # (AUTO) 0.2 X10'3 (0-0.9); HEMATOCRIT 28.2 % (35.0-45.0); HEMOGLOBIN 9.1 g/dl (12.0-16.0); LYMPHOCYTES # (AUTO) 1.7 X10'3 (1.1-4.8); LYMPHOCYTES % (AUTO) 13.4 % (21-51); MEAN CORPUSCULAR HEMOGLOBIN 25.8 PG (27.0-31.0); MEAN CORPUSCULAR HGB CONC 32.2 g/dL (33.0-36.5); MEAN CORPUSCULAR VOLUME 80.2 FL (78-98); MEAN PLATELET VOLUME 8.4 FL (7.4-10.4); MONOCYTES # (AUTO) 1.2 X10'3 (0-0.9); MONOCYTES % (AUTO) 9.4 % (2-12); NEUTROPHILS # (AUTO) 9.3 X10'3 (1.8-7.7); NEUTROPHILS % (AUTO) 74.8 % (42-75); PLATELET COUNT 347 X10'3 (140-440); RED BLOOD COUNT 3.51 X10'6 (4.20-5.60); RED CELL DISTRIBUTION WIDTH 16.5 % (11.5-14.5); WHITE BLOOD COUNT 12.4 X10'3 (4.5-11.0)
[2019-02-14 05:37] LABS: ALANINE AMINOTRANSFERASE 17 U/L (12-78); ALBUMIN 1.8 G/DL (3.4-5.0); ALBUMIN/GLOBULIN RATIO 0.5 (1.1-1.5); ALKALINE PHOSPHATASE 109 IU/L (46-116); ANION GAP 7 (8-16); ASPARTATE AMINO TRANSFERASE 19 U/L (10-37); BILIRUBIN,TOTAL 0.3 MG/DL (0.1-1.0); BLOOD UREA NITROGEN 5 MG/DL (7-18); BUN/CREATININE RATIO 5.7 (6.6-38.0); CALCIUM 8.1 MG/DL (8.5-10.1); CHLORIDE 105 MMOL/L (99-107); CREATININE 0.87 MG/DL (0.40-0.90); GLUCOSE 114 MG/DL (70-104); MAGNESIUM 1.5 MG/DL (1.5-2.4); PHOSPHORUS 3.1 MG/DL (2.3-4.5); POTASSIUM 3.5 MMOL/L (3.5-5.1); SODIUM 137 MMOL/L (135-145); TOTAL CARBON DIOXIDE 24.7 MMOL/L (24-32); TOTAL PROTEIN 5.8 G/DL (6.4-8.2); eGFR 65 ML/MIN
--- NOTE | 2019-02-14 06:51 | NUR ---
Patient in room NAN 354. I have received report from KIMBERLY Arndt and had the opportunity to ask questions and assume patient care.
[2019-02-14 07:25] VITALS: BP 144/59
[2019-02-14] MEDS: methylnaltrexone br 12mg/0.6ml inj***SubQ only SQ SCH (08:00)
[2019-02-14] MEDS: piperacillin/tazo 3.375gm/50ml 50 ML IV SCH (08:48)
[2019-02-14] MEDS: verapamil SR 120mg (sust. release) tab PO SCH (08:48)
[2019-02-14] MEDS: lactobacillus rhamnosus 10,000 MMU CELLS/CAPSULE PO SCH (08:48)
[2019-02-14] MEDS: vitamin D (cholecalciferol) 1,000 unit tablet PO SCH (08:48)
[2019-02-14] MEDS: OMEGA-3/DHA/EPA/FISH OIL 1 EACH CAPSULE.DR PO SCH (08:48)
[2019-02-14] MEDS: docusate sod 100mg capsule PO SCH (08:48)
[2019-02-14] MEDS: calcium carbonate/vitamin D3 tablet PO SCH (08:48)
[2019-02-14] MEDS: morphine ER 30mg tablet PO SCH (08:48)
[2019-02-14] MEDS ORDERED: potassium Cl 20 mEq SR tablet PO STA (09:11)
[2019-02-14] MEDS ORDERED: furosemide 20MG tablet PO ONE (09:15)
[2019-02-14 12:00] VITALS: BP 142/62
[2019-02-14] MEDS ORDERED: CIPR-259 PO (12:15)
--- NOTE | 2019-02-14 13:05 | NUR ---
Discharge instructions and medications reviewed. Paperwork signed and IV removed. Pt waiting for ride.
--- NOTE | 2019-02-14 15:00 | NUR ---
Pt escorted to front lobby by PCT via wheelchair, all belongings in possession. Extra wound care belongings sent home with patient. Home health care set up by case management. New prescription called to [facility]. Pt instructed to follow up with Dr Casiano in 1 week.
== END 2019-02-14 15:00 | disposition home health service (06) | DRG 856 ==
LOC: ER 16:13 → CICU 2S 19:16 → CMPBEDREQ 20:00 → SUR 3N 02-07 15:09
PROVIDERS: ADMIT Internal Medicine Critical Care Medicine; ATTEND Surgery
PROC: 5A1935Z Respiratory Ventilation, Less than 24 Consecutive Hours (ICD-10-PCS; 2019-02-05)
PROC: 0BH17EZ Insertion of Endotracheal Airway into Trachea, Via Natural or Artificial Opening (ICD-10-PCS; 2019-02-05)
PROC: 0W9F0ZZ Drainage of Abdominal Wall, Open Approach (ICD-10-PCS; principal; 2019-02-05 18:05)
PROC: BW211ZZ Computerized Tomography (CT Scan) of Abdomen and Pelvis using Low Osmolar Contrast (ICD-10-PCS; 2019-02-06)
DX: T81.40XA Infection following a procedure, unspecified, initial encounter (principal); J96.00 Acute respiratory failure, unspecified whether with hypoxia or hypercapnia; L02.211 Cutaneous abscess of abdominal wall; K63.2 Fistula of intestine; L03.311 Cellulitis of abdominal wall; G89.29 Other chronic pain; F17.210 Nicotine dependence, cigarettes, uncomplicated; J44.9 Chronic obstructive pulmonary disease, unspecified; M19.90 Unspecified osteoarthritis, unspecified site; Y83.8 Other surgical procedures as the cause of abnormal reaction of the patient, or of later complication, without mention of misadventure at the time of the procedure; Z90.710 Acquired absence of both cervix and uterus; Z98.49 Cataract extraction status, unspecified eye; Z88.5 Allergy status to narcotic agent; Z88.8 Allergy status to other drugs, medicaments and biological substances; Z91.030 Bee allergy status; Z79.899 Other long term (current) drug therapy; Z80.1 Family history of malignant neoplasm of trachea, bronchus and lung; Z82.0 Family history of epilepsy and other diseases of the nervous system; Y92.89 Other specified places as the place of occurrence of the external cause
CPT/HCPCS: 36415; 36600; 71045; 74177; 80053; 82803; 83605; 83735; 84100; 84145; 84484; 85018; 85025; 85610; 85730; 86885; 86900; 86901; 87040; 87070; 87077; 87186; 93005; 93970; 94002; 94003; 94640; 94667; 94668; 94760; 96365; 96375; 97116; 97161; 97530; 99291; A7000; C1758; G0378; J1170; J2001; J2250; J2270; J2543; J2704; J3010; J3480; J7030; J7120

== ENCOUNTER 2019-02-19 11:50 | Inpatient (IN) | payer MEDICARE, OTHER ==
[~2019-02-19] VITALS: Ht 162.6 cm; Wt 50.9 kg
[~2019-02-19 11:50] MED LIST changes: +BIOT5CAP2 PO; +CALC1TAB PO; +CHOL100046 PO; +CIPR-259 PO; +GEMF600T89 PO; +LACT1CAP93 PO; +OMEG1CAP46 PO; +ZOLP5TAB2 PO
[2019-02-19] MEDS ORDERED: normal saline 1000ML IV soln IV ONE (12:00)
--- NOTE | 2019-02-19 12:09 | NUR ---
PICC NURSE PAGED, SHE SPOKE WITH SERGEY MACK, LAB AT BEDSIDE NOW TO DRAW LABS PER ORDERS.
[2019-02-19] MEDS ORDERED: morphine 4 MG/ML inj SYRINge IV ONE (12:40)
[2019-02-19] MEDS ORDERED: piperacillin/tazo 3.375gm/50ml 50 ML IV ONE (12:40)
[2019-02-19 12:54] LABS: BASOPHILS % (AUTO) 0.4 % (0-1); EOSINOPHILS # (AUTO) 0.1 X10'3 (0-0.9); EOSINOPHILS % (AUTO) 1.2 % (0-6); HEMATOCRIT 30.9 % (35.0-45.0); HEMOGLOBIN 10.1 g/dl (12.0-16.0); LYMPHOCYTES # (AUTO) 1.1 X10'3 (1.1-4.8); LYMPHOCYTES % (AUTO) 14.5 % (21-51); MEAN CORPUSCULAR HEMOGLOBIN 25.9 PG (27.0-31.0); MEAN CORPUSCULAR HGB CONC 32.6 g/dL (33.0-36.5); MEAN CORPUSCULAR VOLUME 79.4 FL (78-98); MEAN PLATELET VOLUME 8.7 FL (7.4-10.4); MONOCYTES # (AUTO) 0.8 X10'3 (0-0.9); MONOCYTES % (AUTO) 10.7 % (2-12); NEUTROPHILS # (AUTO) 5.7 X10'3 (1.8-7.7); NEUTROPHILS % (AUTO) 73.2 % (42-75); PLATELET COUNT 276 X10'3 (140-440); RED BLOOD COUNT 3.89 X10'6 (4.20-5.60); RED CELL DISTRIBUTION WIDTH 17.1 % (11.5-14.5); WHITE BLOOD COUNT 7.8 X10'3 (4.5-11.0)
[2019-02-19 13:10] LABS: INR 1.1 INR
[2019-02-19 13:21] LABS: ALANINE AMINOTRANSFERASE 22 U/L (12-78); ALBUMIN 1.9 G/DL (3.4-5.0); ALBUMIN/GLOBULIN RATIO 0.5 (1.1-1.5); ALKALINE PHOSPHATASE 111 IU/L (46-116); ANION GAP 7 (8-16); BILIRUBIN,TOTAL 0.4 MG/DL (0.1-1.0); BLOOD UREA NITROGEN 11 MG/DL (7-18); CALCIUM 8.1 MG/DL (8.5-10.1); CHLORIDE 101 MMOL/L (99-107); GLUCOSE 99 MG/DL (70-104); SODIUM 133 MMOL/L (135-145); TOTAL CARBON DIOXIDE 25.5 MMOL/L (24-32); eGFR 55 ML/MIN
[2019-02-19 13:23] LABS: ASPARTATE AMINO TRANSFERASE 39 U/L (10-37); POTASSIUM 4.9 MMOL/L (3.5-5.1)
[2019-02-19] MEDS: diatr meglu/diatrizoate 30ml oral sol.-(3 dose) bottle PO SCH ×3 (13:34→17:28)
--- NOTE | 2019-02-19 13:36 | NUR ---
spouse and pt. reported having a sore on bottom, will assess and reposition.
[2019-02-19] MEDS ORDERED: morphine 2 MG/ML inj. syringe IV PRN (14:30)
[2019-02-19] MEDS ORDERED: ondansetron/PF 4mg/2ml inj IV PRN (14:30)
[2019-02-19] MEDS ORDERED: potassium Cl 40MEQ/NS 500ml 500 ML IV PRN ×2 (14:30)
[2019-02-19] MEDS ORDERED: potassium Cl 20 mEq SR tablet PO PRN ×2 (14:30)
[2019-02-19] MEDS ORDERED: HYDROcodone/acetaminophen 5mg/325mg tablet PO PRN (14:30)
[2019-02-19] MEDS ORDERED: acetaminophen 325mg tablet PO PRN ×2 (14:30)
[2019-02-19] MEDS: normal saline 1000ml 1,000 ML IV SCH ×2 (14:53→21:58)
--- NOTE | 2019-02-19 14:59 | NUR ---
ASSESSED PATIENT BOTTOM, NO REDNESS OR WOUND WAS SEEN. PATIENT REPOSITIONED WITH PILLOWS TO OFFLAOD BONY PROMINENCES.
--- NOTE | 2019-02-19 15:00 | NUR ---
KIMBERLY Stern and KIMBERLY Garcia performed two nurse skin check.
[2019-02-19] MEDS: morphine 2 MG/ML inj. syringe IV PRN (15:34)
[2019-02-19 16:00] LABS: CLARITY,URINE CLEAR (Clear); COLOR,URINE YELLOW (Yellow); GLUCOSE, URINE NEGATIVE (Neg); KETONES,URINE NEGATIVE (Neg); LEUKOCYTE ESTERASE ,URINE NEGATIVE (Neg); NITRITES, URINE NEGATIVE (Neg); OCCULT BLOOD,URINE NEGATIVE (Neg); PH,URINE 5.5 (4.8-8.0); PROTEIN,URINE NEGATIVE (Neg); UROBILINOGEN,URINE 0.2 E.U/dL (0.2-1.0)
[2019-02-19 16:01] LABS: UA COLLECTION TYPE FOLEY CATH
--- NOTE | 2019-02-19 17:26 | NUR ---
CT requests to give 3rd dose of oral contrast.
[2019-02-19] MEDS ORDERED: iohexol 350MG/ML 100ml bottle IV ONE (17:28)
--- NOTE | 2019-02-19 18:34 | NUR ---
50mL yu, thick liquid drained from ostomy bag. Patient reports that it is not stool but rather drainage from the abscess. She is resting comfortably and has no requests at this time.
[2019-02-19] MEDS ORDERED: VERAPAMIL HCL PO SCH (20:00)
[2019-02-19] MEDS: heparin, porcine 5000 units/ml vial SQ SCH (21:01)
[2019-02-19] MEDS: vancomycin 125mg/5ml ORAL solution 5ml UD bottle PO SCH (21:02)
[2019-02-19] MEDS: verapamil SR 120mg (sust. release) tab PO SCH (21:03)
[2019-02-19 21:50] VITALS: BP 130/70
--- NOTE | 2019-02-19 21:50 | NUR ---
PATIENT ADMITTED TO ROOM 355B FROM ER FOR POST OP FEVER S/P I&D ABDOMINAL WALL ABSCESS. PLACED COMFORTABLE IN BED. VITAL SIGNS TAKEN AND RECORDED.
[2019-02-19] MEDS: HYDROcodone/acetaminophen 10/325mg tab PO PRN (22:23)
[2019-02-19] MEDS: temazepam 15mg capsule PO PRN (22:24)
[2019-02-20] VITALS (17 sets, daily range): BP systolic 96–136; BP diastolic 40–90
[2019-02-20] MEDS: vancomycin 125mg/5ml ORAL solution 5ml UD bottle PO SCH ×2 (02:54→09:24)
--- NOTE | 2019-02-20 05:58 | NUR ---
CALLED DR. ZULUAGA ABOUT PATIENT WENT INTO A-FLUTTER VITALS BP 145/58 HR 50 RR 18 SAT 96% @2L. WENT BACK TO SR AND BACK AGAIN TO A-FLUTTER WITH VERY IRREGULAR HR OF 48 T0 80'S. NO NEW ORDERS MADE.
--- NOTE | 2019-02-20 06:26 | NUR ---
Problems reprioritized. Patient report given, questions answered & plan of care reviewed with GOKUL HARRIS.
--- NOTE | 2019-02-20 06:30 | NUR ---
Patient in room NAN 344. I have received report from Felicia and had the opportunity to ask questions and assume patient care. Addendum: 02/20/19 at 1113 by Celeste Armas RN Amended: Links added.
[2019-02-20] MEDS: HYDROcodone/acetaminophen 10/325mg tab PO PRN (08:59)
[2019-02-20] MEDS: normal saline 1000ml 1,000 ML IV SCH ×2 (09:01→19:54)
[2019-02-20 09:10] LABS: ALANINE AMINOTRANSFERASE 23 U/L (12-78); ALBUMIN 1.9 G/DL (3.4-5.0); ALBUMIN/GLOBULIN RATIO 0.4 (1.1-1.5); ALKALINE PHOSPHATASE 126 IU/L (46-116); ANION GAP 9 (8-16); ASPARTATE AMINO TRANSFERASE 47 U/L (10-37); BILIRUBIN,TOTAL 0.3 MG/DL (0.1-1.0); BLOOD UREA NITROGEN 9 MG/DL (7-18); BUN/CREATININE RATIO 11.3 (6.6-38.0); CALCIUM 8.3 MG/DL (8.5-10.1); CHLORIDE 105 MMOL/L (99-107); GLUCOSE 99 MG/DL (70-104); SODIUM 135 MMOL/L (135-145); TOTAL CARBON DIOXIDE 20.6 MMOL/L (24-32); TOTAL PROTEIN 6.3 G/DL (6.4-8.2); eGFR 71 ML/MIN
[2019-02-20 09:13] LABS: POTASSIUM 4.5 MMOL/L (3.5-5.1)
[2019-02-20] MEDS: heparin, porcine 5000 units/ml vial SQ SCH ×2 (09:24→19:55)
[2019-02-20] MEDS: verapamil SR 120mg (sust. release) tab PO SCH ×2 (09:25→19:55)
[2019-02-20] MEDS: K and/or MAG REPLACEMENT MC SCH (11:10)
[2019-02-20 11:52] LABS: BASOPHILS % (AUTO) 0.6 % (0-1); EOSINOPHILS # (AUTO) 0.1 X10'3 (0-0.9); EOSINOPHILS % (AUTO) 0.9 % (0-6); HEMATOCRIT 27.2 % (35.0-45.0); HEMOGLOBIN 8.8 g/dl (12.0-16.0); LYMPHOCYTES # (AUTO) 1.1 X10'3 (1.1-4.8); MEAN CORPUSCULAR HEMOGLOBIN 25.6 PG (27.0-31.0); MEAN CORPUSCULAR HGB CONC 32.4 g/dL (33.0-36.5); MEAN CORPUSCULAR VOLUME 79.1 FL (78-98); MEAN PLATELET VOLUME 8.8 FL (7.4-10.4); MONOCYTES # (AUTO) 0.8 X10'3 (0-0.9); MONOCYTES % (AUTO) 11.8 % (2-12); NEUTROPHILS # (AUTO) 5.1 X10'3 (1.8-7.7); NEUTROPHILS % (AUTO) 71.7 % (42-75); PLATELET COUNT 251 X10'3 (140-440); RED BLOOD COUNT 3.44 X10'6 (4.20-5.60); RED CELL DISTRIBUTION WIDTH 16.2 % (11.5-14.5); WHITE BLOOD COUNT 7.1 X10'3 (4.5-11.0)
[2019-02-20] MEDS ORDERED: ringers solution, lacted 1,000 ML IV SCH ×2 (13:23→16:22)
[2019-02-20] MEDS ORDERED: meperidine/PF 25mg/ml syringe IV PRN ×3 (13:25)
[2019-02-20] MEDS ORDERED: ondansetron/PF 4mg/2ml inj IV PRN ×2 (13:25→16:25)
[2019-02-20] MEDS ORDERED: morphine 4 MG/ML inj SYRINge IV PRN ×4 (13:25→16:25)
[2019-02-20] MEDS ORDERED: proCHLORperazine 10 MG/2 ml inj IV PRN (13:25)
[2019-02-20] MEDS: piperacillin/tazo 3.375gm/50ml 50 ML IV SCH ×2 (13:33→16:00)
--- NOTE | 2019-02-20 13:47 | NUR ---
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 Colostomy red and tender on admit. Pt has normal strength w/ no edema present. Advanced to regular diet w/ PO pending and current wt is pt stated though last weight 2 weeks prior 60kg and pt standing scale wt last June 51kg so likely no wt loss hx. At this time pt does not meet minimum 2 criteria for malnutrition. Will continue to monitor for additional criteria pending PO this admit. Addendum: 02/20/19 at [address] Amended: Links added.
[2019-02-20] MEDS: morphine 2 MG/ML inj. syringe IV PRN (14:25)
[2019-02-20] MEDS ORDERED: LIDOcaine 1% (10mg/ml) 2ml vial ONE (14:46)
--- NOTE | 2019-02-20 14:48 | NUR ---
To OR via bed.
[2019-02-20] MEDS ORDERED: phenylephrine 10mg/ml inj. ONE (15:25)
[2019-02-20] MEDS ORDERED: sevoflurane 250ml liquid IH ONE (15:25)
[2019-02-20] MEDS ORDERED: midazolam 2 mg/2 ml injection ONE (15:27)
[2019-02-20] MEDS ORDERED: fentaNYL/PF 50MCG/1 ML 2ML syringe ONE ×2 (15:27→16:17)
[2019-02-20] MEDS ORDERED: albumin (Human) 5% 250ml 250 ML IV ONE (15:42)
[2019-02-20] MEDS ORDERED: albumin (Human) 5% 250ml 500 ML IV ONE (15:59)
[2019-02-20] MEDS ORDERED: rocuronium 10mg/ml inj IV ONE (16:10)
[2019-02-20] MEDS ORDERED: LIDOcaine 2% (20mg/ml) 5ml vial ONE (16:10)
[2019-02-20] MEDS ORDERED: propofol inj 20 ML IV ONE (16:10)
[2019-02-20] MEDS ORDERED: ondansetron/PF 4mg/2ml inj ONE (16:11)
[2019-02-20] MEDS ORDERED: dexamethasone sod phosphate 4mg/ml inj. ONE (16:11)
[2019-02-20] MEDS ORDERED: sugammadex 200mg/2ml injection IV ONE (16:19)
[2019-02-20] MEDS ORDERED: labetalol 20mg/4ml (5mg/ml) syringe IV PRN (16:25)
[2019-02-20] MEDS ORDERED: hydrALAZINE 20mg/ml inj. IV PRN (16:25)
[2019-02-20] MEDS ORDERED: fentaNYL/PF 50MCG/1 ML 2ML syringe IV PRN ×2 (16:25)
--- NOTE | 2019-02-20 16:42 | NUR ---
Received from OR via SURGICAL BED , accompanied by Anesthesiologist STACEY and report given by Anesthesiolgist. PATIENT WITH 18G AND 20G PIV IN LEFT UE. PATIENT WITH LARGE ABDOMINAL DRESSING PRESENT AND IS CDI. UNDERWOOD CATHETER WITH CLEAR YELLOW URINE IN ATRIUM. SCDS DONNED. DENIES PAIN. 10L MASK ON WITH 100% SATURATIONS. Addendum: 02/20/19 at 1651 by Madan Chance RN, RN Amended: Links added.
--- NOTE | 2019-02-20 17:32 | NUR ---
ALL CRITERIA FOR TRANSFER BACK TO FLOOR HAS BEEN MET. DENIES PAIN, CLEAR YELLOW URINE IN FC. VSS. KIMBERLY HODGSON PRESENT TO ACCEPT CARE OF THIS PATIENT AND AT BEDSIDE TO ASSIST IN SET UP. SPOUSE AT BEDSIDE. DRESSING STILL CDI CURRENTLY. Addendum: 02/20/19 at 1739 by Madan Chance RN, RN Amended: Links added.
--- NOTE | 2019-02-20 17:37 | NUR ---
Pt received to room 344A via bed,VSS. Abd dressing CDi.
--- NOTE | 2019-02-20 18:37 | NUR ---
Problems reprioritized. Patient report given, questions answered & plan of care reviewed with Joshua. Addendum: 02/20/19 at 1838 by Celeste Armas RN Amended: Links added.
--- NOTE | 2019-02-20 18:38 | NUR ---
Patient in room NAN 344. I have received report from KIMBERLY Alonso and had the opportunity to ask questions and assume patient care.
[2019-02-20] MEDS: lactobacillus rhamnosus 10,000 MMU CELLS/CAPSULE PO SCH (19:51)
[2019-02-21] VITALS: BP 120/56
[2019-02-21] MEDS: piperacillin/tazo 3.375gm/50ml 50 ML IV SCH ×3 (00:15→16:00)
[2019-02-21] MEDS: HYDROcodone/acetaminophen 10/325mg tab PO PRN ×4 (04:09→22:20)
[2019-02-21 04:33] LABS: BASOPHILS % (AUTO) 0.2 % (0-1); EOSINOPHILS % (AUTO) 0 % (0-6); HEMATOCRIT 26.6 % (35.0-45.0); HEMOGLOBIN 8.7 g/dl (12.0-16.0); LYMPHOCYTES # (AUTO) 0.7 X10'3 (1.1-4.8); LYMPHOCYTES % (AUTO) 10.6 % (21-51); MEAN CORPUSCULAR HGB CONC 32.7 g/dL (33.0-36.5); MEAN CORPUSCULAR VOLUME 79.6 FL (78-98); MEAN PLATELET VOLUME 8.7 FL (7.4-10.4); MONOCYTES # (AUTO) 0.2 X10'3 (0-0.9); MONOCYTES % (AUTO) 2.9 % (2-12); NEUTROPHILS # (AUTO) 6.1 X10'3 (1.8-7.7); NEUTROPHILS % (AUTO) 86.3 % (42-75); PLATELET COUNT 268 X10'3 (140-440); RED BLOOD COUNT 3.35 X10'6 (4.20-5.60); RED CELL DISTRIBUTION WIDTH 16.9 % (11.5-14.5)
[2019-02-21 05:01] LABS: ALANINE AMINOTRANSFERASE 21 U/L (12-78); ALBUMIN/GLOBULIN RATIO 0.6 (1.1-1.5); ALKALINE PHOSPHATASE 102 IU/L (46-116); ANION GAP 10 (8-16); ASPARTATE AMINO TRANSFERASE 32 U/L (10-37); BILIRUBIN,TOTAL 0.2 MG/DL (0.1-1.0); BLOOD UREA NITROGEN 7 MG/DL (7-18); BUN/CREATININE RATIO 8.5 (6.6-38.0); CALCIUM 7.8 MG/DL (8.5-10.1); CHLORIDE 108 MMOL/L (99-107); CREATININE 0.82 MG/DL (0.40-0.90); GLUCOSE 146 MG/DL (70-104); POTASSIUM 4.3 MMOL/L (3.5-5.1); SODIUM 139 MMOL/L (135-145); TOTAL CARBON DIOXIDE 21.2 MMOL/L (24-32); TOTAL PROTEIN 5.5 G/DL (6.4-8.2); eGFR 69 ML/MIN
--- NOTE | 2019-02-21 06:30 | NUR ---
Patient in room NAN 344. I have received report from Joshua and had the opportunity to ask questions and assume patient care. Addendum: 02/21/19 at 1244 by Celeste Armas RN Amended: Links added.
[2019-02-21] MEDS: K and/or MAG REPLACEMENT MC SCH (06:50)
[2019-02-21 07:00] VITALS: BP 111/67
[2019-02-21] MEDS: lactobacillus rhamnosus 10,000 MMU CELLS/CAPSULE PO SCH ×2 (08:35→20:41)
[2019-02-21] MEDS: verapamil SR 120mg (sust. release) tab PO SCH ×2 (08:35→20:41)
[2019-02-21] MEDS: heparin, porcine 5000 units/ml vial SQ SCH ×2 (08:36→20:41)
--- NOTE | 2019-02-21 08:52 | NUR ---
Student Medication Administration: For this medication-pass time frame, all medication were reviewed, dispensed, administered and documented per hospital policy by Bernie Procedure Analyst.
[2019-02-21 12:00] VITALS: BP 112/46
--- NOTE | 2019-02-21 13:18 | NUR ---
F/u for malnutrition consult: Pt still with no documented PO intake since diet advancement to regular. ÁNGEL attempted visit with pt at bedside however pt was sleeping and did not wake with verbal cues. Will continue to follow. Addendum: 02/21/19 at [address] Amended: Links added.
[2019-02-21] MEDS: normal saline 1000ml 1,000 ML IV SCH (15:13)
[2019-02-21 18:00] VITALS: BP 112/43
--- NOTE | 2019-02-21 18:27 | NUR ---
Problems reprioritized. Patient report given, questions answered & plan of care reviewed with Joshua. Addendum: 02/21/19 at 1827 by Celeste Armas RN Amended: Links added.
--- NOTE | 2019-02-21 18:28 | NUR ---
Patient in room NAN 344. I have received report from KIMBERLY Alonso and had the opportunity to ask questions and assume patient care.
[2019-02-22] VITALS: BP 136/50
[2019-02-22] MEDS: temazepam 15mg capsule PO PRN ×2 (00:09→22:32)
[2019-02-22] MEDS: piperacillin/tazo 3.375gm/50ml 50 ML IV SCH ×4 (00:09→23:56)
[2019-02-22] MEDS: HYDROcodone/acetaminophen 10/325mg tab PO PRN ×3 (04:27→14:55)
[2019-02-22] MEDS: normal saline 1000ml 1,000 ML IV SCH ×2 (04:30→17:42)
[2019-02-22 05:25] LABS: BASOPHILS % (AUTO) 0.5 % (0-1); EOSINOPHILS # (AUTO) 0.1 X10'3 (0-0.9); EOSINOPHILS % (AUTO) 1.3 % (0-6); HEMATOCRIT 24.4 % (35.0-45.0); LYMPHOCYTES % (AUTO) 24.7 % (21-51); MEAN CORPUSCULAR HEMOGLOBIN 26.1 PG (27.0-31.0); MEAN CORPUSCULAR HGB CONC 32.7 g/dL (33.0-36.5); MEAN CORPUSCULAR VOLUME 79.7 FL (78-98); MEAN PLATELET VOLUME 8.7 FL (7.4-10.4); MONOCYTES # (AUTO) 0.7 X10'3 (0-0.9); MONOCYTES % (AUTO) 8.4 % (2-12); NEUTROPHILS # (AUTO) 5.4 X10'3 (1.8-7.7); NEUTROPHILS % (AUTO) 65.1 % (42-75); PLATELET COUNT 264 X10'3 (140-440); RED BLOOD COUNT 3.05 X10'6 (4.20-5.60); RED CELL DISTRIBUTION WIDTH 16.8 % (11.5-14.5); WHITE BLOOD COUNT 8.3 X10'3 (4.5-11.0)
[2019-02-22 05:34] LABS: ALANINE AMINOTRANSFERASE 29 U/L (12-78); ALBUMIN 1.9 G/DL (3.4-5.0); ALBUMIN/GLOBULIN RATIO 0.6 (1.1-1.5); ALKALINE PHOSPHATASE 98 IU/L (46-116); ANION GAP 9 (8-16); ASPARTATE AMINO TRANSFERASE 52 U/L (10-37); BILIRUBIN,TOTAL 0.1 MG/DL (0.1-1.0); BLOOD UREA NITROGEN 11 MG/DL (7-18); BUN/CREATININE RATIO 12.1 (6.6-38.0); CALCIUM 7.9 MG/DL (8.5-10.1); CHLORIDE 109 MMOL/L (99-107); CREATININE 0.91 MG/DL (0.40-0.90); GLUCOSE 83 MG/DL (70-104); POTASSIUM 4.1 MMOL/L (3.5-5.1); SODIUM 141 MMOL/L (135-145); TOTAL CARBON DIOXIDE 22.7 MMOL/L (24-32); TOTAL PROTEIN 5.2 G/DL (6.4-8.2); eGFR 61 ML/MIN
--- NOTE | 2019-02-22 06:15 | NUR ---
Patient in room NAN 344. I have received report from Joshua HARRIS and had the opportunity to ask questions and assume patient care.
--- NOTE | 2019-02-22 06:16 | NUR ---
Problems reprioritized. Patient report given, questions answered & plan of care reviewed with KIMBERLY Levy.
[2019-02-22] MEDS: verapamil SR 120mg (sust. release) tab PO SCH ×2 (07:38→19:30)
[2019-02-22] MEDS: lactobacillus rhamnosus 10,000 MMU CELLS/CAPSULE PO SCH ×2 (07:38→19:30)
[2019-02-22] MEDS: heparin, porcine 5000 units/ml vial SQ SCH ×2 (07:38→19:30)
[2019-02-22] MEDS: K and/or MAG REPLACEMENT MC SCH (07:39)
[2019-02-22 08:00] VITALS: BP 130/50
[2019-02-22 11:24] VITALS: BP 119/51
[2019-02-22] MEDS ORDERED: morphine ER 30mg tablet PO PRN ×2 (15:35→15:45)
[2019-02-22] MEDS ORDERED: non-formulary drug (Oxycodone HCl 1 CAP) PO PRN (15:45)
[2019-02-22] MEDS ORDERED: oxyCODONE IR 5mg (immed. release) tablet PO PRN (15:45)
--- NOTE | 2019-02-22 15:54 | NUR ---
F/u for malnutrition consult: Pt with 25% average PO intake. RD seen patient at bedside, patient reports she has a history of having her stomach stapled 40 years ago and lost a significant amount of weight. Patient reports that her usual body weight in the past year was 115 lbs. Current weight is 112 lbs. Pt states here current low intake is normal for her as she becomes full very easily. She is requesting ground meats d/t some difficulty chewing with dentures, d/w dietary. Patient would also like ensure with meals, notified MD. Will continue to follow. Addendum: 02/22/19 at [address] Amended: Links added.
[2019-02-22] MEDS: morphine ER 30mg tablet PO SCH ×2 (16:12→22:31)
--- NOTE | 2019-02-22 18:12 | NUR ---
Problems reprioritized. Patient report given, questions answered & plan of care reviewed with Emili Bermudez RN.
--- NOTE | 2019-02-22 18:30 | NUR ---
Patient in room NAN 344. I have received report from KIMBERLY Levy and had the opportunity to ask questions and assume patient care. Addendum: 02/22/19 at 1830 by Luana Briones RN Amended: Links added.
[2019-02-22 20:00] VITALS: BP 137/49
[2019-02-22] MEDS: NYSTATIN CREAM - 30GM TUBE TP SCH (22:31)
[2019-02-23 00:32] VITALS: BP 158/59
[2019-02-23] MEDS: morphine ER 30mg tablet PO SCH ×3 (05:06→13:44)
[2019-02-23] MEDS: normal saline 1000ml 1,000 ML IV SCH (05:49)
[2019-02-23 05:50] LABS: BASOPHILS # (AUTO) 0.1 X10'3 (0-0.2); BASOPHILS % (AUTO) 0.7 % (0-1); EOSINOPHILS # (AUTO) 0.3 X10'3 (0-0.9); EOSINOPHILS % (AUTO) 3.3 % (0-6); HEMOGLOBIN 8.6 g/dl (12.0-16.0); LYMPHOCYTES # (AUTO) 2.1 X10'3 (1.1-4.8); LYMPHOCYTES % (AUTO) 26.1 % (21-51); MEAN CORPUSCULAR HEMOGLOBIN 25.5 PG (27.0-31.0); MEAN CORPUSCULAR VOLUME 79.9 FL (78-98); MEAN PLATELET VOLUME 8.8 FL (7.4-10.4); MONOCYTES # (AUTO) 0.6 X10'3 (0-0.9); MONOCYTES % (AUTO) 7.9 % (2-12); NEUTROPHILS # (AUTO) 4.9 X10'3 (1.8-7.7); PLATELET COUNT 250 X10'3 (140-440); RED BLOOD COUNT 3.38 X10'6 (4.20-5.60); RED CELL DISTRIBUTION WIDTH 16.9 % (11.5-14.5); WHITE BLOOD COUNT 7.9 X10'3 (4.5-11.0)
[2019-02-23 06:17] LABS: ALANINE AMINOTRANSFERASE 36 U/L (12-78); ALBUMIN 1.9 G/DL (3.4-5.0); ALBUMIN/GLOBULIN RATIO 0.6 (1.1-1.5); ALKALINE PHOSPHATASE 120 IU/L (46-116); ANION GAP 8 (8-16); ASPARTATE AMINO TRANSFERASE 57 U/L (10-37); BILIRUBIN,TOTAL 0.1 MG/DL (0.1-1.0); BLOOD UREA NITROGEN 8 MG/DL (7-18); BUN/CREATININE RATIO 9.1 (6.6-38.0); CALCIUM 7.5 MG/DL (8.5-10.1); CHLORIDE 107 MMOL/L (99-107); CREATININE 0.88 MG/DL (0.40-0.90); GLUCOSE 90 MG/DL (70-104); POTASSIUM 4.2 MMOL/L (3.5-5.1); SODIUM 139 MMOL/L (135-145); TOTAL CARBON DIOXIDE 24.5 MMOL/L (24-32); TOTAL PROTEIN 5.3 G/DL (6.4-8.2); eGFR 64 ML/MIN
--- NOTE | 2019-02-23 06:26 | NUR ---
Problems reprioritized. Patient report given, questions answered & plan of care reviewed with KIMBERLY Marino.
[2019-02-23] MEDS: verapamil SR 120mg (sust. release) tab PO SCH (07:31)
[2019-02-23] MEDS: piperacillin/tazo 3.375gm/50ml 50 ML IV SCH (07:32)
[2019-02-23] MEDS: lactobacillus rhamnosus 10,000 MMU CELLS/CAPSULE PO SCH (07:41)
[2019-02-23] MEDS: heparin, porcine 5000 units/ml vial SQ SCH (07:41)
[2019-02-23] MEDS: K and/or MAG REPLACEMENT MC SCH (07:43)
[2019-02-23] MEDS: NYSTATIN CREAM - 30GM TUBE TP SCH (07:44)
[2019-02-23 08:00] VITALS: BP 154/58
[2019-02-23 11:00] VITALS: BP 145/55
--- NOTE | 2019-02-23 11:05 | NUR ---
DR JONES ROUNDED ON PT AND IS OKAY WITH DOING HOME DRESSING CHANGES BID AND PRN. WHEN ARRIVES WE WILL SHOW HIM HOW TO DO DRESSING CHANGES. ADAPTIC IS NOT TO BE CHANGED PER DR JONES, ONLY MOIST 4X4'S AND ABD PADS. SUGGESTS USING VIOLET STRADENISE FOR DRESSING CHANGES WHICH WE WILL MAKE AND SHOW HOW TO DO AND USE PRIOR TO DISCHARGE. I WILL SEND HOME SUPPLIES WELL FOR DRESSING CHANGES. CASE MGT WILL RESUME HOME HEALTH.
--- NOTE | 2019-02-23 14:20 | NUR ---
PT DISCHARGED HOME WITH . EDUCATED AND INSTRUCTED ON WOUND CARE CHANGES BID AND PRN . HE SAYS HE UNDERSTANDS HOW TO DO THESE CHANGES. EXTRA CARE TAKEN ON EDUCATING ABOUT CHANGING GLOVES OFTEN AND NOT TOUCHING WOUND WITH DIRTY GLOVES OR GLOVES THAT HAVE TOUCHED OTHER THINGS. AND PT AWARE TO KEEP ADAPTIC IN UNTIL SEEING DR MULLINS ON MONDAY. PT WILL MAKE APPT MONDAY WHEN OFFICE OPENS. NO NEW MEDS OR ABX PER DR LOZOYA. FRESH WC DRESSING THIS AM. LAZO STRAPS MADE AND SHOWN TO HOW TO USE SO LESS TAPE IS ON SKIN. IV TAKEN OUT, NO TELE MONITOR.
== END 2019-02-23 14:40 | disposition home health service (06) | DRG 330 ==
LOC: ER 11:50 → SUR 3N 14:30 → CMPBEDREQ 22:31 → SUR 3N 02-20 08:53
PROVIDERS: ADMIT Internal Medicine; ATTEND Internal Medicine
PROC: 0DQE0ZZ Repair Large Intestine, Open Approach (ICD-10-PCS; principal; 2019-02-20 15:30)
DX: K63.2 Fistula of intestine (principal); I31.3 Pericardial effusion (noninflammatory); D63.8 Anemia in other chronic diseases classified elsewhere; G89.4 Chronic pain syndrome; I10 Essential (primary) hypertension; J44.9 Chronic obstructive pulmonary disease, unspecified; F32.9 Major depressive disorder, single episode, unspecified; R74.8 Abnormal levels of other serum enzymes; F17.200 Nicotine dependence, unspecified, uncomplicated; Z93.3 Colostomy status; Z90.3 Acquired absence of stomach [part of]; Z90.710 Acquired absence of both cervix and uterus; Z88.8 Allergy status to other drugs, medicaments and biological substances; Z88.6 Allergy status to analgesic agent; Z88.1 Allergy status to other antibiotic agents; Z91.030 Bee allergy status; Z79.891 Long term (current) use of opiate analgesic; Z79.899 Other long term (current) drug therapy; Z80.9 Family history of malignant neoplasm, unspecified; Z82.0 Family history of epilepsy and other diseases of the nervous system
CPT/HCPCS: 36415; 71045; 74176; 80053; 81003; 83605; 84145; 85025; 85610; 86885; 86900; 86901; 86920; 87040; 87070; 93005; 93306; 96365; 99285; A6253; A6446; A7000; C9399; G0378; J1100; J1644; J2001; J2250; J2270; J2370; J2405; J2543; J2704; J3010; J3490; J7030; J7120; P9045; Q9963; Q9967

== ENCOUNTER 2019-02-28 10:55 | Day surgery (SDC) | payer MEDICARE, OTHER ==
[2019-02-28] VITALS (7 sets, daily range): BP systolic 120–136; BP diastolic 56–68
[~2019-02-28] VITALS: Ht 160 cm; Wt 59.0 kg
[~2019-02-28 10:55] MED LIST changes: -AMIT75TA2 PO; -ATRIN INH; -CIPR-259 PO; -GEMF600T89 PO; -SENN1TAB28 PO
[2019-02-28] MEDS ORDERED: cefazolin/dext.iso 2gm/100 ML IV ONE (12:08)
[2019-02-28] MEDS ORDERED: famotidine 20mg tablet PO ONE (12:08)
[2019-02-28] MEDS ORDERED: ringers solution, lacted 1,000 ML IV SCH ×2 (12:09→14:40)
[2019-02-28] MEDS ORDERED: albuterol 2.5 MG/3 ML nebule NEB ONE (12:20)
[2019-02-28 13:12] LABS: BASOPHILS # (AUTO) 0.1 X10'3 (0-0.2); EOSINOPHILS # (AUTO) 0.3 X10'3 (0-0.9); EOSINOPHILS % (AUTO) 3.4 % (0-6); LYMPHOCYTES # (AUTO) 2.1 X10'3 (1.1-4.8); LYMPHOCYTES % (AUTO) 21.5 % (21-51); MEAN CORPUSCULAR HEMOGLOBIN 26.5 PG (27.0-31.0); MEAN CORPUSCULAR HGB CONC 33.4 g/dL (33.0-36.5); MEAN CORPUSCULAR VOLUME 79.5 FL (78-98); MEAN PLATELET VOLUME 8.9 FL (7.4-10.4); MONOCYTES # (AUTO) 0.9 X10'3 (0-0.9); MONOCYTES % (AUTO) 9.4 % (2-12); NEUTROPHILS # (AUTO) 6.2 X10'3 (1.8-7.7); NEUTROPHILS % (AUTO) 64.7 % (42-75); PRE OP HEMATOCRIT 26.4 % (35.0-45.0); PRE OP PLATELET COUNT 233 X10'3 (140-440); RED BLOOD COUNT 3.32 X10'6 (4.20-5.60); RED CELL DISTRIBUTION WIDTH 18.2 % (11.5-14.5)
[2019-02-28 13:19] LABS: ALBUMIN 2.3 G/DL (3.4-5.0); ALBUMIN/GLOBULIN RATIO 0.6 (1.1-1.5); ALKALINE PHOSPHATASE 149 IU/L (46-116); BLOOD UREA NITROGEN 14 MG/DL (7-18); BUN/CREATININE RATIO 13.6 (6.6-38.0); CALCIUM 8.3 MG/DL (8.5-10.1); CHLORIDE 103 MMOL/L (99-107); CREATININE 1.03 MG/DL (0.40-0.90); PRE OP ALT 34 U/L (30-65); PRE OP ANION GAP 6 (8-16); PRE OP AST 42 U/L (10-37); PRE OP BILIRUB, TOTAL 0.3 MG/DL (0.0-1.0); PRE OP GLUCOSE 89 MG/DL (70-104); PRE OP POTASSIUM 4.6 MMOL/L (3.4-5.1); PRE OP SODIUM 136 MMOL/L (135-145); TOTAL CARBON DIOXIDE 27.3 MMOL/L (24-32); eGFR 53 ML/MIN
[2019-02-28 13:30] LABS: PRE OP HEMOGLOBIN 8.8 g/dL (12.0-16.0)
[2019-02-28 13:35] LABS: MICROCYTOSIS 1+; PLATELET ESTIMATE NORMAL
[2019-02-28 13:36] LABS: ANISOCYTOSIS 2+; ELLIPTOCYTES FEW; POLYCHROMASIA FEW; SCHISTOCYTES FEW
[2019-02-28] MEDS ORDERED: sevoflurane 250ml liquid IH ONE (14:00)
[2019-02-28] MEDS ORDERED: fentaNYL/PF 50MCG/1 ML 2ML syringe ONE (14:02)
--- NOTE | 2019-02-28 14:32 | NUR ---
Received from OR via BRANT , accompanied by Anesthesiologist ROOPA and report given by Anesthesiolgist. PATIENT WITH VSS. DENIES PAIN, ABDOMINAL DRESSING IS CDI. 20G PIV IN LEFT UE RUNNING LR AT 100. Addendum: 02/28/19 at 1513 by Madan Chance RN, RN Amended: Links added.
[2019-02-28] MEDS ORDERED: LIDOcaine 2% (20mg/ml) 5ml vial ONE (14:33)
[2019-02-28] MEDS ORDERED: propofol inj 20 ML IV ONE (14:33)
[2019-02-28] MEDS ORDERED: proCHLORperazine 10 MG/2 ml inj IV PRN (14:40)
[2019-02-28] MEDS ORDERED: morphine 4 MG/ML inj SYRINge IV PRN ×2 (14:40)
[2019-02-28] MEDS ORDERED: ondansetron/PF 4mg/2ml inj IV PRN (14:40)
[2019-02-28] MEDS ORDERED: meperidine/PF 25mg/ml syringe IV PRN ×3 (14:40)
[2019-02-28] MEDS ORDERED: ondansetron/PF 4mg/2ml inj ONE (14:53)
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
[2019-03-12] MEDS ORDERED: AMIT75TA7 PO (14:30)
[2019-03-21] MEDS ORDERED: ONDA4TAB12 PO (14:32)
[2019-03-21] MEDS ORDERED: TRIA1CAP6 PO (14:32)
[2019-03-21] MEDS ORDERED: EPIN0.3P3 IM (14:32)
[2019-03-25] MEDS ORDERED: LEVO750T21 PO (12:36)
[2019-03-27] MEDS ORDERED: LEVO750T21 PO (01:08)
[2019-04-01] MEDS ORDERED: ASPI-1071 PO (12:40)
[2019-04-01] MEDS ORDERED: hyDRALAzine tablet PO (12:40)
[2019-04-01] MEDS ORDERED: ISOS30TA6 PO (12:40)
[2019-04-01] MEDS ORDERED: COR3.125T PO (12:40)
== END 2019-02-28 15:12 | disposition home or self-care (01) ==
LOC: PAS 10:55
PROVIDERS: ATTEND Surgery
DX: K63.2 Fistula of intestine (principal); J44.9 Chronic obstructive pulmonary disease, unspecified; G89.29 Other chronic pain; G43.909 Migraine, unspecified, not intractable, without status migrainosus; D64.9 Anemia, unspecified; M19.90 Unspecified osteoarthritis, unspecified site; F32.9 Major depressive disorder, single episode, unspecified; Z88.8 Allergy status to other drugs, medicaments and biological substances; Z88.6 Allergy status to analgesic agent; Z98.890 Other specified postprocedural states; Z87.891 Personal history of nicotine dependence
CPT/HCPCS: 36415; 44650; 80053; 85025; 94640; 94760; A6223; J0690; J2001; J2405; J2704; J3010; J7120; A6253; A7000

== ENCOUNTER 2019-03-12 13:35 | Inpatient (IN) | payer MEDICARE, OTHER ==
[~2019-03-12] VITALS: Ht 160 cm; Wt 56.8 kg
[2019-03-12] MEDS ORDERED: normal saline 1000ML IV soln IVB ONE (13:55)
[2019-03-12 14:17] LABS: BASOPHILS # (AUTO) 0.1 X10'3 (0-0.2); BASOPHILS % (AUTO) 0.7 % (0-1); EOSINOPHILS # (AUTO) 0.2 X10'3 (0-0.9); EOSINOPHILS % (AUTO) 2.2 % (0-6); HEMATOCRIT 38.4 % (35.0-45.0); HEMOGLOBIN 12.3 g/dl (12.0-16.0); LYMPHOCYTES # (AUTO) 2.4 X10'3 (1.1-4.8); MEAN CORPUSCULAR HEMOGLOBIN 25.4 PG (27.0-31.0); MEAN CORPUSCULAR VOLUME 79.2 FL (78-98); MEAN PLATELET VOLUME 8.8 FL (7.4-10.4); MONOCYTES # (AUTO) 0.7 X10'3 (0-0.9); MONOCYTES % (AUTO) 8.5 % (2-12); NEUTROPHILS # (AUTO) 4.4 X10'3 (1.8-7.7); NEUTROPHILS % (AUTO) 57.6 % (42-75); PLATELET COUNT 248 X10'3 (140-440); RED BLOOD COUNT 4.85 X10'6 (4.20-5.60); RED CELL DISTRIBUTION WIDTH 18.4 % (11.5-14.5); WHITE BLOOD COUNT 7.7 X10'3 (4.5-11.0)
[2019-03-12] MEDS ORDERED: HYDR25TA4 PO (14:22)
[2019-03-12] MEDS ORDERED: LACT1CAP65 PO (14:23)
[2019-03-12] MEDS ORDERED: BIOT5CAP3 PO (14:24)
[2019-03-12] MEDS ORDERED: CALC-1051 PO (14:24)
[2019-03-12] MEDS ORDERED: CHOL100046 PO (14:25)
[2019-03-12] MEDS ORDERED: DOCU-28 PO (14:26)
[2019-03-12] MEDS ORDERED: MORP30TA6 PO (14:26)
[2019-03-12] MEDS ORDERED: OMEG-107 PO (14:27)
[2019-03-12] MEDS ORDERED: ONDA4TAB6 PO (14:28)
[2019-03-12 14:29] LABS: ALANINE AMINOTRANSFERASE 25 U/L (12-78); ALBUMIN 3.2 G/DL (3.4-5.0); ALBUMIN/GLOBULIN RATIO 0.7 (1.1-1.5); ALKALINE PHOSPHATASE 182 IU/L (46-116); ANION GAP 8 (8-16); ASPARTATE AMINO TRANSFERASE 34 U/L (10-37); BILIRUBIN,TOTAL 0.4 MG/DL (0.1-1.0); BLOOD UREA NITROGEN 23 MG/DL (7-18); CALCIUM 9.2 MG/DL (8.5-10.1); CHLORIDE 98 MMOL/L (99-107); CREATININE 1.28 MG/DL (0.40-0.90); GLUCOSE 96 MG/DL (70-104); LIPASE 149 U/L (73-393); POTASSIUM 4.2 MMOL/L (3.5-5.1); SODIUM 135 MMOL/L (135-145); TOTAL CARBON DIOXIDE 29.2 MMOL/L (24-32); eGFR 41 ML/MIN
[2019-03-12] MEDS ORDERED: OXYC-658 PO (14:29)
[2019-03-12] MEDS ORDERED: VERA240T12 PO (14:29)
[2019-03-12] MEDS ORDERED: AMIT75TA48 PO (14:30)
[2019-03-12 14:57] LABS: CLARITY,URINE CLEAR (Clear); COLOR,URINE YELLOW (Yellow); GLUCOSE, URINE NEGATIVE (Neg); KETONES,URINE NEGATIVE (Neg); LEUKOCYTE ESTERASE ,URINE NEGATIVE (Neg); NITRITES, URINE NEGATIVE (Neg); OCCULT BLOOD,URINE LARGE (Neg); PROTEIN,URINE TRACE mg/dl (Neg); UROBILINOGEN,URINE 0.2 E.U/dL (0.2-1.0)
[2019-03-12 15:01] LABS: UA COLLECTION TYPE CLN CATCH MIDSTREAM
[2019-03-12 15:05] LABS: BACTERIA,URINE 1+ /HPF (Neg); RBC,URINE TNTC /HPF (0-2); SQUAMOUS EPITHELIAL CELL,UR FEW /LPF (FEW)
[2019-03-12 15:06] LABS: CAL OXALATE CRYSTALS 1+ /HPF (NEGATIVE); MUCUS STRANDS FEW /LPF (Neg)
[2019-03-12 15:07] LABS: CELLULAR CAST 0-4 /LPF (NEGATIVE)
[2019-03-12] MEDS ORDERED: acetaminophen 325mg tablet PO PRN (15:25)
[2019-03-12] MEDS ORDERED: ondansetron/PF 4mg/2ml inj IV PRN (15:25)
[2019-03-12] MEDS ORDERED: mag hydrox/Alum hydrox/simeth 30ml oral suspension PO PRN (15:25)
[2019-03-12] MEDS ORDERED: non-formulary drug (Ondansetron Hcl (Zofran) 1 TAB) PO PRN (15:50)
[2019-03-12] MEDS ORDERED: docusate sod 100mg capsule PO PRN (15:50)
[2019-03-12] MEDS: normal saline 1000ml 1,000 ML IV SCH (15:55)
[2019-03-12] MEDS ORDERED: ondansetron 4mg rapidly disintigrating tab PO PRN (16:00)
--- NOTE | 2019-03-12 16:09 | NUR ---
Report received from ED RN, Vera.
--- NOTE | 2019-03-12 16:35 | NUR ---
Pt arrived to room 346A from ED.
[2019-03-12 16:40] VITALS: BP 137/67
--- NOTE | 2019-03-12 18:45 | NUR ---
Patient in room NAN 346. I have received report from KIMBERLY Swanson and had the opportunity to ask questions and assume patient care with KIMBERLY Elias. Addendum: 03/12/19 at 1855 by Lilibeth Salas RN Amended: Links added.
[2019-03-12] MEDS: oxyCODONE IR 5mg (immed. release) tablet PO PRN (18:47)
--- NOTE | 2019-03-12 18:55 | NUR ---
Problems reprioritized. Patient report given, questions answered & plan of care reviewed with KIMBERLY Barfield & KIMBERLY Elias.
--- NOTE | 2019-03-12 18:55 | NUR ---
Patient in room NAN 346. I have received report from Kiki HARRIS and had the opportunity to ask questions and assume patient care.
[2019-03-12] MEDS: calcium carbonate/vitamin D3 tablet PO SCH (19:35)
[2019-03-12] MEDS: lactobacillus rhamnosus 10,000 MMU CELLS/CAPSULE PO SCH (19:35)
[2019-03-12] MEDS: morphine ER 30mg tablet PO SCH (19:37)
[2019-03-12] MEDS: verapamil SR 120mg (sust. release) tab PO SCH (19:38)
[2019-03-12 20:00] VITALS: BP 120/67
[2019-03-12] MEDS ORDERED: non-formulary drug (Calcium Carbonate/Vitamin D3 (Calcium 500 + D Tablet) 1 TAB) PO SCH (20:00)
[2019-03-12] MEDS ORDERED: non-formulary drug (Lactobacillus Acidophilus (Probiotic) 1 CAP) PO SCH (20:00)
[2019-03-12] MEDS ORDERED: VERAPAMIL HCL PO SCH (20:00)
[2019-03-12 23:54] VITALS: BP 118/60
[2019-03-13] VITALS (20 sets, daily range): BP systolic 96–146; BP diastolic 47–90
--- NOTE | 2019-03-13 01:17 | NUR ---
agree with nursing assessment. Addendum: 03/13/19 at 0117 by Lilibeth Salas RN Amended: Links added.
[2019-03-13] MEDS: morphine ER 30mg tablet PO SCH ×4 (02:07→20:00)
[2019-03-13] MEDS: normal saline 1000ml 1,000 ML IV SCH ×3 (02:09→21:21)
[2019-03-13 05:09] LABS: BASOPHILS % (AUTO) 0.4 % (0-1); EOSINOPHILS # (AUTO) 0.3 X10'3 (0-0.9); EOSINOPHILS % (AUTO) 5.6 % (0-6); HEMATOCRIT 29.5 % (35.0-45.0); HEMOGLOBIN 9.5 g/dl (12.0-16.0); LYMPHOCYTES # (AUTO) 2.3 X10'3 (1.1-4.8); LYMPHOCYTES % (AUTO) 39.2 % (21-51); MEAN CORPUSCULAR HEMOGLOBIN 25.8 PG (27.0-31.0); MEAN CORPUSCULAR HGB CONC 32.1 g/dL (33.0-36.5); MEAN CORPUSCULAR VOLUME 80.3 FL (78-98); MEAN PLATELET VOLUME 9.1 FL (7.4-10.4); MONOCYTES # (AUTO) 0.6 X10'3 (0-0.9); NEUTROPHILS # (AUTO) 2.6 X10'3 (1.8-7.7); NEUTROPHILS % (AUTO) 44.8 % (42-75); PLATELET COUNT 185 X10'3 (140-440); RED BLOOD COUNT 3.68 X10'6 (4.20-5.60); RED CELL DISTRIBUTION WIDTH 17.7 % (11.5-14.5); WHITE BLOOD COUNT 5.8 X10'3 (4.5-11.0)
[2019-03-13 05:28] LABS: ALBUMIN 2.2 G/DL (3.4-5.0); ANION GAP 7 (8-16); BLOOD UREA NITROGEN 15 MG/DL (7-18); BUN/CREATININE RATIO 16.3 (6.6-38.0); CHLORIDE 104 MMOL/L (99-107); CREATININE 0.92 MG/DL (0.40-0.90); GLUCOSE 95 MG/DL (70-104); POTASSIUM 4.1 MMOL/L (3.5-5.1); SODIUM 136 MMOL/L (135-145); TOTAL CARBON DIOXIDE 25.3 MMOL/L (24-32); eGFR 61 ML/MIN
--- NOTE | 2019-03-13 06:23 | NUR ---
Patient in room NAN 346. I have received report from KIMBERLY Barfield and had the opportunity to ask questions and assume patient care.
--- NOTE | 2019-03-13 06:32 | NUR ---
Problems reprioritized. Patient report given, questions answered & plan of care reviewed with Ninoska RN.
[2019-03-13] MEDS: HYDROchlorothiazide 25mg tablet PO SCH (07:22)
[2019-03-13] MEDS: verapamil SR 120mg (sust. release) tab PO SCH ×2 (07:22→21:01)
[2019-03-13] MEDS: calcium carbonate/vitamin D3 tablet PO SCH ×2 (07:23→20:00)
[2019-03-13] MEDS: amitriptyline 25mg tablet PO SCH (07:23)
[2019-03-13] MEDS: omega-3 acid ethyl esters 1GM capsule PO SCH (07:23)
[2019-03-13] MEDS: lactobacillus rhamnosus 10,000 MMU CELLS/CAPSULE PO SCH ×2 (07:23→20:00)
[2019-03-13] MEDS: vitamin D (cholecalciferol) 1,000 unit tablet PO SCH (07:24)
[2019-03-13] MEDS ORDERED: BIOTIN PO SCH (08:00)
[2019-03-13] MEDS ORDERED: non-formulary drug (Amitriptyline HCl 2 TAB) PO SCH (08:00)
--- NOTE | 2019-03-13 13:48 | NUR ---
Called report to KIMBERLY Muñiz in recovery. Patient being taken down for surgery. Belongings sent with .
[2019-03-13] MEDS ORDERED: sevoflurane 250ml liquid IH ONE (14:09)
[2019-03-13] MEDS ORDERED: midazolam 2 mg/2 ml injection ONE (14:09)
[2019-03-13] MEDS ORDERED: fentaNYL /PF 50mcg/ml 5ml ampule ONE (14:09)
[2019-03-13] MEDS ORDERED: propofol inj 20 ML IV ONE (14:11)
[2019-03-13] MEDS ORDERED: rocuronium 10mg/ml inj IV ONE (14:11)
[2019-03-13] MEDS ORDERED: cefotetan 2gm/isosm dext IVPB 50 ML IV ONE (14:42)
[2019-03-13] MEDS ORDERED: ondansetron/PF 4mg/2ml inj IV PRN (15:20)
[2019-03-13] MEDS ORDERED: morphine 4 MG/ML inj SYRINge IV PRN ×2 (15:20)
[2019-03-13] MEDS ORDERED: ringers solution, lacted 1,000 ML IV SCH (15:20)
[2019-03-13] MEDS ORDERED: meperidine/PF 25mg/ml syringe IV PRN ×2 (15:20)
[2019-03-13] MEDS ORDERED: mupirocin 2% ointment 22GM ONE (16:00)
[2019-03-13] MEDS ORDERED: neostigmine methylsulfate 1 MG/ML 10ml vial ONE (16:19)
[2019-03-13] MEDS ORDERED: glycopyrrolate 0.2mg/ml inj ONE (16:19)
--- NOTE | 2019-03-13 16:29 | NUR ---
Received from OR via BED, accompanied by Anesthesiologist DR NOLAN and report given by Anesthesiolgist. PT DROWSY, DENIES PAIN, ABDOMEN W/LARGE GAUZE DRSG W/MEDIPORE TAPE COVERING, SMALL AMT OF S/S DRAINAGE ON DRSG, NGT TO RIGHT NARE. BLANKET WARMER APPLIED FOR TEMP 35.8, UNDERWOOD CATHETER TO GRAVITY DRAINAGE. Addendum: 03/13/19 at 1726 by Georgia Tubbs RN Amended: Links added.
[2019-03-13 16:46] LABS: ISTAT CREATININE 0.8 mg/dL (0.6-1.1); ISTAT HGB 10.2 g/dl (12.0-16.0); ISTAT IONIZED CALCIUM 1.16 mmol/L (1.03-1.32); ISTAT K 3.7 mmol/L (3.5-5.1); POC BUN/CREATININE RATIO 12.5 (6.6-38.0)
--- NOTE | 2019-03-13 17:24 | NUR ---
I have received report from KIMBERLY Ho in recovery and had the opportunity to ask questions and assume patient care. Patient to arrive around 1800
--- NOTE | 2019-03-13 17:50 | NUR ---
ARTERIAL LINE D/CD W/O ANY COMPLICATIONS, NADEEM W/HARRY APPLIED, NGT D/CD W/O ANY COMPLICATIONS. PT REMAINS COMFORTABLE. Addendum: 03/13/19 at 1751 by Georgia Tubbs RN Amended: Links added.
--- NOTE | 2019-03-13 17:54 | NUR ---
Report called to receiving nurse. Transferred via BED, NO Belongings, RECEIVING RN AT BEDSIDE TO RECEIVE PT, BLL, CALL LIGHT GIVEN, SIDE RAILS UP X 2, PTS AT BEDSIDE, PT STATES REMAINS COMFORTABLE, NO C/O. Special Issues communicated to receiving nurse. YES. Addendum: 03/13/19 at 1831 by Georgia Tubbs RN Amended: Links added.
--- NOTE | 2019-03-13 18:24 | NUR ---
Problems reprioritized. Patient report given, questions answered & plan of care reviewed with KIMBERLY Elias and KIMBERLY Blount.
--- NOTE | 2019-03-13 18:33 | NUR ---
Patient in room NAN 346. I have received report from Ninoska HARRIS and had the opportunity to ask questions and assume patient care.
--- NOTE | 2019-03-13 21:20 | NUR ---
patient was in recovery and headed to floor at dinner time Addendum: 03/13/19 at 2121 by Curt Cordon RN Amended: Links added.
--- NOTE | 2019-03-13 23:50 | NUR ---
Agree with KIMBERLY Schwartzrisk assessment analyst. Addendum: 03/13/19 at 2350 by Mine Benson RN Amended: Links added.
[2019-03-14] MEDS: sod chloride 0.9% 10ml flush syringe IV SCH ×3 (00:02→17:17)
[2019-03-14 00:57] VITALS: BP 146/86
[2019-03-14] MEDS: morphine ER 30mg tablet PO SCH ×4 (02:00→20:02)
[2019-03-14 04:52] VITALS: BP 131/54
[2019-03-14 05:09] LABS: BASOPHILS % (AUTO) 0.2 % (0-1); EOSINOPHILS % (AUTO) 0.2 % (0-6); HEMATOCRIT 33.4 % (35.0-45.0); HEMOGLOBIN 10.7 g/dl (12.0-16.0); LYMPHOCYTES # (AUTO) 1.3 X10'3 (1.1-4.8); LYMPHOCYTES % (AUTO) 9.4 % (21-51); MEAN CORPUSCULAR HEMOGLOBIN 25.6 PG (27.0-31.0); MONOCYTES # (AUTO) 0.6 X10'3 (0-0.9); MONOCYTES % (AUTO) 4.3 % (2-12); NEUTROPHILS # (AUTO) 11.5 X10'3 (1.8-7.7); NEUTROPHILS % (AUTO) 85.9 % (42-75); PLATELET COUNT 225 X10'3 (140-440); RED BLOOD COUNT 4.17 X10'6 (4.20-5.60); RED CELL DISTRIBUTION WIDTH 18.1 % (11.5-14.5); WHITE BLOOD COUNT 13.4 X10'3 (4.5-11.0)
[2019-03-14 05:48] LABS: ALBUMIN 2.1 G/DL (3.4-5.0); ANION GAP 10 (8-16); BLOOD UREA NITROGEN 12 MG/DL (7-18); BUN/CREATININE RATIO 11.9 (6.6-38.0); CALCIUM 7.8 MG/DL (8.5-10.1); CHLORIDE 105 MMOL/L (99-107); CREATININE 1.01 MG/DL (0.40-0.90); GLUCOSE 123 MG/DL (70-104); POTASSIUM 3.6 MMOL/L (3.5-5.1); SODIUM 137 MMOL/L (135-145); TOTAL CARBON DIOXIDE 22.5 MMOL/L (24-32); eGFR 54 ML/MIN
--- NOTE | 2019-03-14 06:15 | NUR ---
Patient in room NAN 346. I have received report from KIMBERLY Terrazas and had the opportunity to ask questions and assume patient care. Patient resting comfortably at this time. Surgical wound dressing assessed and outlined, drainage noted, dressing reinforced with ABD pad. Will continue to monitor.
--- NOTE | 2019-03-14 06:26 | NUR ---
Problems reprioritized. Patient report given, questions answered & plan of care reviewed with Daria HARRIS.
[2019-03-14 07:00] VITALS: BP 142/91
[2019-03-14] MEDS: calcium carbonate/vitamin D3 tablet PO SCH ×2 (09:28→20:02)
[2019-03-14] MEDS: verapamil SR 120mg (sust. release) tab PO SCH ×2 (09:28→20:02)
[2019-03-14] MEDS: amitriptyline 25mg tablet PO SCH (09:29)
[2019-03-14] MEDS: HYDROchlorothiazide 25mg tablet PO SCH (09:30)
[2019-03-14] MEDS: lactobacillus rhamnosus 10,000 MMU CELLS/CAPSULE PO SCH ×2 (09:30→20:02)
[2019-03-14] MEDS: omega-3 acid ethyl esters 1GM capsule PO SCH (09:30)
[2019-03-14] MEDS: vitamin D (cholecalciferol) 1,000 unit tablet PO SCH (09:31)
--- NOTE | 2019-03-14 10:58 | NUR ---
Patient FC discontinued. Patient tolerated well. At this time abdominal dressing was changed. Moderate amount of drainage noted. Patient tolerated well.
[2019-03-14 11:00] VITALS: BP 130/69
[2019-03-14] MEDS: normal saline 1000ml 1,000 ML IV SCH ×3 (11:05→22:05)
--- NOTE | 2019-03-14 18:24 | NUR ---
Problems reprioritized. Patient report given, questions answered & plan of care reviewed with KIMBERLY Caruso and KIMBERLY Golden. Patient still very sleepy at this time. Patient encouraged to eat some dinner.
--- NOTE | 2019-03-14 18:30 | NUR ---
Patient in room NAN 346 . I have received report from Daria HARRIS and had the opportunity to ask questions and assume patient care Zuly HARRIS and Chantel HARRIS.
--- NOTE | 2019-03-14 18:38 | NUR ---
Received report from Daria HARRIS with Chantel RN pt is awake eating her clear liquid diet, call light and items of freq use within reach.
[2019-03-14 19:00] VITALS: BP 132/90
[2019-03-15] VITALS: BP 110/50
[2019-03-15] MEDS: morphine ER 30mg tablet PO SCH ×4 (01:35→19:38)
[2019-03-15] MEDS: sod chloride 0.9% 10ml flush syringe IV SCH ×2 (01:36→08:00)
[2019-03-15 04:34] LABS: BASOPHILS % (AUTO) 0.4 % (0-1); EOSINOPHILS # (AUTO) 0.4 X10'3 (0-0.9); EOSINOPHILS % (AUTO) 5.2 % (0-6); HEMATOCRIT 28.9 % (35.0-45.0); HEMOGLOBIN 9.3 g/dl (12.0-16.0); LYMPHOCYTES # (AUTO) 2.1 X10'3 (1.1-4.8); LYMPHOCYTES % (AUTO) 27.2 % (21-51); MEAN CORPUSCULAR HEMOGLOBIN 25.6 PG (27.0-31.0); MEAN CORPUSCULAR HGB CONC 32.2 g/dL (33.0-36.5); MEAN CORPUSCULAR VOLUME 79.5 FL (78-98); MEAN PLATELET VOLUME 9.2 FL (7.4-10.4); MONOCYTES # (AUTO) 0.6 X10'3 (0-0.9); NEUTROPHILS # (AUTO) 4.5 X10'3 (1.8-7.7); NEUTROPHILS % (AUTO) 59.2 % (42-75); PLATELET COUNT 177 X10'3 (140-440); RED BLOOD COUNT 3.63 X10'6 (4.20-5.60); RED CELL DISTRIBUTION WIDTH 17.9 % (11.5-14.5); WHITE BLOOD COUNT 7.6 X10'3 (4.5-11.0)
[2019-03-15 04:44] LABS: ALBUMIN 1.7 G/DL (3.4-5.0); ANION GAP 6 (8-16); BLOOD UREA NITROGEN 14 MG/DL (7-18); BUN/CREATININE RATIO 17.3 (6.6-38.0); CALCIUM 7.7 MG/DL (8.5-10.1); CHLORIDE 106 MMOL/L (99-107); CREATININE 0.81 MG/DL (0.40-0.90); GLUCOSE 95 MG/DL (70-104); POTASSIUM 3.4 MMOL/L (3.5-5.1); SODIUM 138 MMOL/L (135-145); TOTAL CARBON DIOXIDE 25.8 MMOL/L (24-32); eGFR 70 ML/MIN
--- NOTE | 2019-03-15 06:00 | NUR ---
Patient in room NAN 346. I have received report from KIMBERLY Caruso and KIMBERLY Golden and had the opportunity to ask questions and assume patient care. Patent resting comfortably at this time. Call light and items of frequent use in reach of patient.
--- NOTE | 2019-03-15 06:06 | NUR ---
Reviewed and Agree with Prudence RN charting.
--- NOTE | 2019-03-15 06:07 | NUR ---
Gave report to raiza HARRIS with Prudence RN pt is awake on RA, in no apparent distress, NS running@100ml/hr, call light and items of freq use within reach.
--- NOTE | 2019-03-15 06:07 | NUR ---
Problems reprioritized. Patient report given to , questions answered & plan of care reviewed with Daria HARRIS.Patient slept well and is awake.
[2019-03-15 07:08] VITALS: BP 90/43
[2019-03-15] MEDS: lactobacillus rhamnosus 10,000 MMU CELLS/CAPSULE PO SCH ×2 (07:53→19:38)
[2019-03-15] MEDS: verapamil SR 120mg (sust. release) tab PO SCH ×2 (07:53→19:40)
[2019-03-15] MEDS: calcium carbonate/vitamin D3 tablet PO SCH ×2 (07:54→19:37)
[2019-03-15] MEDS: HYDROchlorothiazide 25mg tablet PO SCH (07:54)
[2019-03-15] MEDS: omega-3 acid ethyl esters 1GM capsule PO SCH (07:54)
[2019-03-15] MEDS: amitriptyline 25mg tablet PO SCH (07:54)
[2019-03-15] MEDS: vitamin D (cholecalciferol) 1,000 unit tablet PO SCH (07:55)
[2019-03-15] MEDS: normal saline 1000ml 1,000 ML IV SCH (07:55)
[2019-03-15 07:58] VITALS: BP 124/58
[2019-03-15] MEDS ORDERED: magnesium 4gm in 100ml NS 100 ML IV PRN (08:00)
[2019-03-15] MEDS ORDERED: magnesium Cl slow-release 64mg tablet PO PRN (08:00)
[2019-03-15] MEDS ORDERED: potassium Cl 20 mEq SR tablet PO PRN (08:00)
[2019-03-15] MEDS ORDERED: potassium CL 10mEq/100ml bag 100 ML IV PRN (08:00)
[2019-03-15] MEDS: potassium Cl 20 mEq SR tablet PO PRN ×3 (08:55→17:28)
[2019-03-15 11:00] VITALS: BP 93/45
--- NOTE | 2019-03-15 13:30 | NUR ---
Central line D/C'd with cannula intact. Patient tolerated well. Bleeding well controlled.
--- NOTE | 2019-03-15 18:05 | NUR ---
Problems reprioritized. Patient report given, questions answered & plan of care reviewed with KIMBERLY Golden and KIMBERLY Caruso. Patient eating dinner at this time. Call light and items of frequent use in reach of patient.
--- NOTE | 2019-03-15 18:10 | NUR ---
Received report from Daria HARRIS pt is awake and alert on RA, eating dinner in no apparent distress, call light and items of freq use within reach.
--- NOTE | 2019-03-15 18:17 | NUR ---
Patient in room NAN 346. I have received report from Daria HARRIS and had the opportunity to ask questions and assume patient care. Patient is eating dinner.
[2019-03-15 19:00] VITALS: BP 101/57
[2019-03-16] VITALS: BP 95/45
[2019-03-16] MEDS: morphine ER 30mg tablet PO SCH ×3 (02:03→14:00)
[2019-03-16 05:28] LABS: BASOPHILS % (AUTO) 0.7 % (0-1); EOSINOPHILS # (AUTO) 0.3 X10'3 (0-0.9); EOSINOPHILS % (AUTO) 5.3 % (0-6); HEMATOCRIT 26.3 % (35.0-45.0); HEMOGLOBIN 8.6 g/dl (12.0-16.0); LYMPHOCYTES # (AUTO) 2.1 X10'3 (1.1-4.8); LYMPHOCYTES % (AUTO) 32.4 % (21-51); MEAN CORPUSCULAR HEMOGLOBIN 25.7 PG (27.0-31.0); MEAN CORPUSCULAR HGB CONC 32.6 g/dL (33.0-36.5); MEAN PLATELET VOLUME 9.5 FL (7.4-10.4); MONOCYTES # (AUTO) 0.5 X10'3 (0-0.9); MONOCYTES % (AUTO) 8.4 % (2-12); NEUTROPHILS # (AUTO) 3.4 X10'3 (1.8-7.7); NEUTROPHILS % (AUTO) 53.2 % (42-75); PLATELET COUNT 181 X10'3 (140-440); RED BLOOD COUNT 3.33 X10'6 (4.20-5.60); RED CELL DISTRIBUTION WIDTH 17.5 % (11.5-14.5); WHITE BLOOD COUNT 6.4 X10'3 (4.5-11.0)
[2019-03-16 05:34] LABS: ALBUMIN 1.8 G/DL (3.4-5.0); ANION GAP 5 (8-16); BLOOD UREA NITROGEN 15 MG/DL (7-18); BUN/CREATININE RATIO 16.7 (6.6-38.0); CALCIUM 8.1 MG/DL (8.5-10.1); CHLORIDE 107 MMOL/L (99-107); GLUCOSE 95 MG/DL (70-104); MAGNESIUM 1.5 MG/DL (1.5-2.4); SODIUM 137 MMOL/L (135-145); TOTAL CARBON DIOXIDE 25.3 MMOL/L (24-32); eGFR 62 ML/MIN
--- NOTE | 2019-03-16 06:11 | NUR ---
Problems reprioritized. Patient report given, questions answered & plan of care reviewed with Nedra HARRIS and Chantel HARRIS .
--- NOTE | 2019-03-16 06:11 | NUR ---
I have reviewed and agree with Prudence RN charting.
--- NOTE | 2019-03-16 06:22 | NUR ---
Problems reprioritized. Patient report given, questions answered & plan of care reviewed with Nedra HARRIS. Patient shows no sign of distress and is in bed resting.
--- NOTE | 2019-03-16 06:33 | NUR ---
Patient in room NAN 346. I have received report from Chantel HARRIS and had the opportunity to ask questions and assume patient care.
[2019-03-16 07:07] VITALS: BP 117/70
[2019-03-16] MEDS: vitamin D (cholecalciferol) 1,000 unit tablet PO SCH (07:20)
[2019-03-16] MEDS: lactobacillus rhamnosus 10,000 MMU CELLS/CAPSULE PO SCH ×2 (07:20→20:37)
[2019-03-16] MEDS: amitriptyline 25mg tablet PO SCH (07:20)
[2019-03-16] MEDS: omega-3 acid ethyl esters 1GM capsule PO SCH (07:20)
[2019-03-16] MEDS: HYDROchlorothiazide 25mg tablet PO SCH (07:20)
[2019-03-16] MEDS: calcium carbonate/vitamin D3 tablet PO SCH ×2 (07:20→20:37)
[2019-03-16] MEDS: verapamil SR 120mg (sust. release) tab PO SCH ×2 (07:20→20:37)
[2019-03-16] MEDS: magnesium hydroxide 30ml (MOM) UD suspension PO PRN (07:24)
--- NOTE | 2019-03-16 10:25 | NUR ---
Made Dr Watkins aware that after patient took her am medications ie: MS contin 30mg which she has ordered Q6H scheduled that she is very sedated and responds with short one word answers before falling back to sleep. Dr Watkins assessed patient and stated when she becomes more awake he will discuss possible changes to her Pain medication which she takes at home. Will continue to monitor patient at this time.
[2019-03-16] MEDS: normal saline 1000ml 1,000 ML IV SCH ×3 (10:51→23:19)
[2019-03-16 11:00] VITALS: BP 90/40
--- NOTE | 2019-03-16 16:03 | NUR ---
Bladder scanned patient showed 19mls in bladder. Patient stated she does not feel the need to void at this time. Received orders from Dr Watkins to increase patients NS IV fluids to 125ml's/hr and to hold patients MS Contin till she is more awake and oriented.
--- NOTE | 2019-03-16 18:21 | NUR ---
Problems reprioritized. Patient report given, questions answered & plan of care reviewed with Prudence and Elodia RN's.
--- NOTE | 2019-03-16 18:24 | NUR ---
Patient in room NAN 346. I have received report from Nedra HARRIS and had the opportunity to ask questions and assume patient care. Patient is sitting up eating dinner.
[2019-03-16 19:00] VITALS: BP 124/55
[2019-03-17] VITALS: BP 116/58
[2019-03-17 05:23] LABS: BASOPHILS % (AUTO) 0.7 % (0-1); EOSINOPHILS # (AUTO) 0.2 X10'3 (0-0.9); HEMATOCRIT 27.9 % (35.0-45.0); LYMPHOCYTES % (AUTO) 32.1 % (21-51); MEAN CORPUSCULAR HEMOGLOBIN 25.4 PG (27.0-31.0); MEAN CORPUSCULAR HGB CONC 32.1 g/dL (33.0-36.5); MEAN CORPUSCULAR VOLUME 79.2 FL (78-98); MEAN PLATELET VOLUME 9.7 FL (7.4-10.4); MONOCYTES # (AUTO) 0.4 X10'3 (0-0.9); MONOCYTES % (AUTO) 6.9 % (2-12); NEUTROPHILS # (AUTO) 3.5 X10'3 (1.8-7.7); NEUTROPHILS % (AUTO) 57.3 % (42-75); PLATELET COUNT 181 X10'3 (140-440); RED BLOOD COUNT 3.53 X10'6 (4.20-5.60); RED CELL DISTRIBUTION WIDTH 17.6 % (11.5-14.5); WHITE BLOOD COUNT 6.1 X10'3 (4.5-11.0)
[2019-03-17 06:02] LABS: ALBUMIN 1.8 G/DL (3.4-5.0); ANION GAP 6 (8-16); BLOOD UREA NITROGEN 12 MG/DL (7-18); BUN/CREATININE RATIO 13.8 (6.6-38.0); CHLORIDE 107 MMOL/L (99-107); CREATININE 0.87 MG/DL (0.40-0.90); GLUCOSE 91 MG/DL (70-104); MAGNESIUM 1.6 MG/DL (1.5-2.4); POTASSIUM 3.8 MMOL/L (3.5-5.1); SODIUM 140 MMOL/L (135-145); TOTAL CARBON DIOXIDE 26.7 MMOL/L (24-32); eGFR 65 ML/MIN
--- NOTE | 2019-03-17 06:27 | NUR ---
Problems reprioritized. Patient report given, questions answered & plan of care reviewed with Claudio HARRIS.
--- NOTE | 2019-03-17 06:30 | NUR ---
Patient in room NAN 346. I have received report from Chantel HARRIS and had the opportunity to ask questions and assume patient care.
[2019-03-17] MEDS: normal saline 1000ml 1,000 ML IV SCH ×2 (07:04→17:31)
[2019-03-17 07:10] VITALS: BP 108/57
[2019-03-17] MEDS: omega-3 acid ethyl esters 1GM capsule PO SCH (07:58)
[2019-03-17] MEDS: HYDROchlorothiazide 25mg tablet PO SCH (07:58)
[2019-03-17] MEDS: verapamil SR 120mg (sust. release) tab PO SCH ×2 (07:59→20:22)
[2019-03-17] MEDS: vitamin D (cholecalciferol) 1,000 unit tablet PO SCH (07:59)
[2019-03-17] MEDS: calcium carbonate/vitamin D3 tablet PO SCH ×2 (08:00→20:23)
[2019-03-17] MEDS: amitriptyline 25mg tablet PO SCH (08:00)
[2019-03-17] MEDS: lactobacillus rhamnosus 10,000 MMU CELLS/CAPSULE PO SCH ×2 (08:00→20:23)
[2019-03-17] MEDS: oxyCODONE IR 5mg (immed. release) tablet PO PRN ×2 (08:32→20:24)
[2019-03-17 11:15] VITALS: BP 111/57
--- NOTE | 2019-03-17 12:29 | NUR ---
Changed patient IV infusion rate to 80 mL/hr, from 125 mL/hr per MD order.
[2019-03-17] MEDS: docusate sod 100mg capsule PO SCH ×2 (12:35→20:23)
[2019-03-17] MEDS: enoxaparin 40mg/0.4ml syringe SUBCUT SCH (12:37)
--- NOTE | 2019-03-17 14:01 | NUR ---
Initial: Patient admitted with enterocutaneous fistula s/p exploratory lap, removal of contaminated mesh, small portion of small bowel resection, and fistula repair on 03/13. Advanced to regular diet w/ 25-50% avg meals PO fluctuating but slowly increasing from admit. LBM 03/14 w/ abdominal pain noted post-op. Receiving vitamin D and Ca/D. Ensure high protein TIDWM added for additional protein needs post-op; MD and dietary notified. Will continue to monitor. Rec: 1. continue regular diet per MD 2. ensure high protein TIDWM 3. routine bowel care 4. wt per rx Addendum: 03/17/19 at [address] Amended: Links added. Addendum: 03/17/19 at [address] Correction: Initial: Patient admitted with enterocutaneous fistula s/p exploratory lap, removal of contaminated mesh, and fistula repair on 03/13; bowel intact. Advanced to regular diet w/ 25-50% avg meals PO fluctuating but slowly increasing from admit. LBM 03/14 w/ abdominal pain noted post-op. Receiving vitamin D and Ca/D. Ensure high protein TIDWM added for additional protein needs post-op; MD and dietary notified. Will continue to monitor. Rec: 1. continue regular diet per MD 2. ensure high protein TIDWM 3. routine bowel care 4. wt per rx
[2019-03-17] MEDS: morphine ER 15mg tablet PO SCH ×2 (16:08→23:40)
[2019-03-17] MEDS ORDERED: lactose-reduced food (Ensure High Protein) 237ml bottle PO SCH (18:00)
--- NOTE | 2019-03-17 18:30 | NUR ---
Patient in room NAN 346. I have received report from KIMBERLY Murphy and had the opportunity to ask questions and assume patient care.
[2019-03-17 19:00] VITALS: BP 152/78
--- NOTE | 2019-03-17 19:10 | NUR ---
pt sitting up un bed; no distress noted; Gloria RN to resume pt care (report given)
--- NOTE | 2019-03-17 19:26 | NUR ---
Patient in room NAN 346. I have received report from Pat RN and had the opportunity to ask questions and assume patient care.
[2019-03-18] VITALS: BP 137/62
[2019-03-18] MEDS: normal saline 1000ml 1,000 ML IV SCH (04:39)
[2019-03-18 06:32] LABS: MAGNESIUM 1.4 MG/DL (1.5-2.4); POTASSIUM 3.4 MMOL/L (3.5-5.1)
--- NOTE | 2019-03-18 06:36 | NUR ---
Patient in room NAN 346. I have received report from Gloria HARRIS and had the opportunity to ask questions and assume patient care.
--- NOTE | 2019-03-18 06:39 | NUR ---
Problems reprioritized. Patient report given, questions answered & plan of care reviewed with Mildred HARRIS.
[2019-03-18 08:00] VITALS: BP 144/63
[2019-03-18] MEDS: vitamin D (cholecalciferol) 1,000 unit tablet PO SCH (08:16)
[2019-03-18] MEDS: lactobacillus rhamnosus 10,000 MMU CELLS/CAPSULE PO SCH ×2 (08:16→20:20)
[2019-03-18] MEDS: amitriptyline 25mg tablet PO SCH (08:17)
[2019-03-18] MEDS: omega-3 acid ethyl esters 1GM capsule PO SCH (08:17)
[2019-03-18] MEDS: verapamil SR 120mg (sust. release) tab PO SCH ×2 (08:18→20:20)
[2019-03-18] MEDS: calcium carbonate/vitamin D3 tablet PO SCH ×2 (08:18→20:19)
[2019-03-18] MEDS: enoxaparin 40mg/0.4ml syringe SUBCUT SCH (08:19)
[2019-03-18] MEDS: docusate sod 100mg capsule PO SCH ×2 (08:19→20:00)
[2019-03-18] MEDS: morphine ER 15mg tablet PO SCH ×2 (08:19→15:37)
[2019-03-18] MEDS: magnesium hydroxide 30ml (MOM) UD suspension PO PRN (08:25)
[2019-03-18] MEDS ORDERED: potassium Cl 20 mEq SR tablet PO PRN ×2 (09:50)
[2019-03-18] MEDS ORDERED: magnesium 4gm in 100ml NS 100 ML IV PRN (09:50)
[2019-03-18] MEDS ORDERED: potassium CL 10mEq/100ml bag 100 ML IV PRN (09:50)
[2019-03-18] MEDS: magnesium Cl slow-release 64mg tablet PO PRN ×2 (10:47→20:22)
[2019-03-18 12:09] VITALS: BP 100/55
[2019-03-18] MEDS: Potassium Cl inj 20 MEQ in normal saline 1000ml 1,000 ML IV SCH (13:51)
--- NOTE | 2019-03-18 18:30 | NUR ---
Patient in room NAN 346. I have received report from Mildred HARRIS and had the opportunity to ask questions and assume patient care.
[2019-03-18] MEDS: oxyCODONE IR 5mg (immed. release) tablet PO PRN (18:48)
[2019-03-18 19:01] VITALS: BP 150/87
[2019-03-19] VITALS: BP 159/72
[2019-03-19] MEDS: Potassium Cl inj 20 MEQ in normal saline 1000ml 1,000 ML IV SCH ×2 (01:13→05:55)
[2019-03-19] MEDS: morphine ER 15mg tablet PO SCH ×2 (01:33→08:06)
--- NOTE | 2019-03-19 01:46 | NUR ---
At around 2014, patients PIV to LUE had infiltrated. Arm was pink/reddened. Patient denies feeling any pain from it and declined a warm/cold washcloth for comfort.
--- NOTE | 2019-03-19 06:33 | NUR ---
Patient in room NAN 346. I have received report from Gloria HARRIS and had the opportunity to ask questions and assume patient care.
--- NOTE | 2019-03-19 06:34 | NUR ---
Problems reprioritized. Patient report given, questions answered & plan of care reviewed with Mildred Jacobs.
[2019-03-19 06:35] LABS: BASOPHILS % (AUTO) 0.5 % (0-1); EOSINOPHILS # (AUTO) 0.2 X10'3 (0-0.9); EOSINOPHILS % (AUTO) 3.9 % (0-6); HEMATOCRIT 27.5 % (35.0-45.0); HEMOGLOBIN 8.9 g/dl (12.0-16.0); LYMPHOCYTES # (AUTO) 1.7 X10'3 (1.1-4.8); LYMPHOCYTES % (AUTO) 27.1 % (21-51); MEAN CORPUSCULAR HEMOGLOBIN 25.4 PG (27.0-31.0); MEAN CORPUSCULAR HGB CONC 32.5 g/dL (33.0-36.5); MEAN CORPUSCULAR VOLUME 78.2 FL (78-98); MEAN PLATELET VOLUME 8.8 FL (7.4-10.4); MONOCYTES # (AUTO) 0.4 X10'3 (0-0.9); MONOCYTES % (AUTO) 6.9 % (2-12); NEUTROPHILS # (AUTO) 3.9 X10'3 (1.8-7.7); NEUTROPHILS % (AUTO) 61.6 % (42-75); PLATELET COUNT 200 X10'3 (140-440); RED BLOOD COUNT 3.52 X10'6 (4.20-5.60); RED CELL DISTRIBUTION WIDTH 17.5 % (11.5-14.5); WHITE BLOOD COUNT 6.3 X10'3 (4.5-11.0)
[2019-03-19 06:37] LABS: ALBUMIN 1.9 G/DL (3.4-5.0); ANION GAP 5 (8-16); BLOOD UREA NITROGEN 8 MG/DL (7-18); BUN/CREATININE RATIO 10.8 (6.6-38.0); CALCIUM 8.5 MG/DL (8.5-10.1); CHLORIDE 106 MMOL/L (99-107); CREATININE 0.74 MG/DL (0.40-0.90); GLUCOSE 99 MG/DL (70-104); MAGNESIUM 1.7 MG/DL (1.5-2.4); POTASSIUM 4.1 MMOL/L (3.5-5.1); SODIUM 141 MMOL/L (135-145); TOTAL CARBON DIOXIDE 30.4 MMOL/L (24-32); eGFR 78 ML/MIN
[2019-03-19 06:58] VITALS: BP 172/78
--- NOTE | 2019-03-19 07:56 | NUR ---
Dr Casiano rounded stating pt is ready to be discharged from a surgical standpoint. No new orders.
[2019-03-19] MEDS: enoxaparin 40mg/0.4ml syringe SUBCUT SCH (08:00)
[2019-03-19] MEDS: omega-3 acid ethyl esters 1GM capsule PO SCH (08:05)
[2019-03-19] MEDS: vitamin D (cholecalciferol) 1,000 unit tablet PO SCH (08:05)
[2019-03-19] MEDS: lactobacillus rhamnosus 10,000 MMU CELLS/CAPSULE PO SCH (08:06)
[2019-03-19] MEDS: docusate sod 100mg capsule PO SCH (08:06)
[2019-03-19] MEDS: calcium carbonate/vitamin D3 tablet PO SCH (08:06)
[2019-03-19] MEDS: verapamil SR 120mg (sust. release) tab PO SCH (08:06)
[2019-03-19] MEDS: amitriptyline 25mg tablet PO SCH (08:09)
--- NOTE | 2019-03-19 10:40 | NUR ---
Patient has been discharged on nursing end, patient is waiting on ride. All education has been completed, IV discontinued, surgical wound dressing changed.
--- NOTE | 2019-03-19 10:45 | NUR ---
Educated patient on medications and follow up after discharge. Patient had no new medications and PIV was removed; cath tip intact. Patient has called ride and will arrive shortly. Care given back to KIMBERLY Levy for the remainder of the discharge.
--- NOTE | 2019-03-19 11:10 | NUR ---
Patient dischanged, A&O x4, surgical wound dressing changed. VSS. Patient dressed herself, taken to lobby to meet family by WC and with staff.
[2019-03-21] MEDS ORDERED: ONDA4TAB12 PO (14:32)
[2019-03-21] MEDS ORDERED: EPIN0.3P3 IM (14:32)
[2019-03-21] MEDS ORDERED: TRIA1CAP6 PO (14:32)
== END 2019-03-19 11:20 | disposition home health service (06) | DRG 329 ==
LOC: ER 13:36 → EDBEDREQ 16:00 → SUR 3N 16:02 → CMPBEDREQ 03-13 19:42
PROVIDERS: ADMIT Internal Medicine; ATTEND Internal Medicine
PROC: 0DQ80ZZ Repair Small Intestine, Open Approach (ICD-10-PCS; 2019-03-13)
PROC: 0DN80ZZ Release Small Intestine, Open Approach (ICD-10-PCS; 2019-03-13)
PROC: 05HY33Z Insertion of Infusion Device into Upper Vein, Percutaneous Approach (ICD-10-PCS; principal; 2019-03-13 14:09)
DX: K63.2 Fistula of intestine (principal); E43 Unspecified severe protein-calorie malnutrition; E86.0 Dehydration; G89.4 Chronic pain syndrome; J44.9 Chronic obstructive pulmonary disease, unspecified; G47.00 Insomnia, unspecified; F17.200 Nicotine dependence, unspecified, uncomplicated; Z90.710 Acquired absence of both cervix and uterus; Z80.9 Family history of malignant neoplasm, unspecified; Z87.891 Personal history of nicotine dependence; Z88.8 Allergy status to other drugs, medicaments and biological substances; Z88.6 Allergy status to analgesic agent; Z88.1 Allergy status to other antibiotic agents; Z91.030 Bee allergy status; Z68.22 Body mass index [BMI] 22.0-22.9, adult; Z82.0 Family history of epilepsy and other diseases of the nervous system; Z79.891 Long term (current) use of opiate analgesic
CPT/HCPCS: 36415; 71045; 80047; 80048; 80053; 81001; 83690; 83735; 84132; 85025; 85610; 86885; 86900; 86901; 86920; 87070; 87088; 93005; 97116; 97161; 99285; A6253; A7000; G0378; J1650; J2250; J2704; J2710; J3010; J3480; J3490; J7030; J7120

== ENCOUNTER 2019-07-04 08:48 | Outpatient (CLI) | payer MEDICARE, OTHER ==
[~2019-07-04 08:48] MED LIST changes: +AMIT75TA7 PO; +ASPI-1071 PO; +BARIUM SULFATE/METHYLCELLULOSE 600 ML SUSPENSION BOTTLE**DONT ENTER PO ONE; -BIOT5CAP2 PO; +BIOT5CAP3 PO; -CALC1TAB PO; +COR3.125T PO; +EPIN0.3P3 IM; -EPIN0.3P8 IM; +ISOS30TA6 PO; +LACT1CAP65 PO; -LACT1CAP93 PO; +LEVO750T21 PO; +MORP30TA6 PO; -MORP30TA60 PO; -OMEG1CAP46 PO; +ONDA4TAB12 PO; -ONDA4TAB6 PO; +OXYC-658 PO; -OXYC5CAP19 PO; -VERA240T12 PO; -ZOLP5TAB2 PO; +hyDRALAzine tablet PO
[2019-07-04] MEDS ORDERED: ASPI-611 PO (13:28)
[2019-07-04] MEDS ORDERED: TIOT4MIS3 INH (13:30)
[2019-07-04] MEDS ORDERED: IPRA4AER IH (13:30)
== END 2019-07-04 23:59 | disposition home or self-care (01) ==
LOC: RAD 08:48
PROVIDERS: ATTEND Surgery
DX: K63.2 Fistula of intestine (principal); J44.9 Chronic obstructive pulmonary disease, unspecified; F17.200 Nicotine dependence, unspecified, uncomplicated; Z90.710 Acquired absence of both cervix and uterus; Z98.84 Bariatric surgery status
CPT/HCPCS: 74250

== ENCOUNTER 2019-07-10 08:44 | Inpatient (IN) | payer MEDICARE, OTHER ==
[2019-07-04 12:59] LABS: BASOPHILS # (AUTO) 0.1 X10'3 (0-0.2)
[2019-07-04 13:01] LABS: BASOPHILS % (AUTO) 1.1 % (0-1); EOSINOPHILS # (AUTO) 0.1 X10'3 (0-0.9); EOSINOPHILS % (AUTO) 1.3 % (0-6); LYMPHOCYTES % (AUTO) 20.2 % (21-51); MEAN CORPUSCULAR HGB CONC 33.2 g/dL (33.0-36.5); MEAN CORPUSCULAR VOLUME 78.1 FL (78-98); MEAN PLATELET VOLUME 8.4 FL (7.4-10.4); MONOCYTES # (AUTO) 0.5 X10'3 (0-0.9); MONOCYTES % (AUTO) 4.7 % (2-12); NEUTROPHILS % (AUTO) 72.7 % (42-75); PRE OP HEMATOCRIT 35.8 % (35.0-45.0); PRE OP HEMOGLOBIN 11.9 g/dL (12.0-16.0); PRE OP PLATELET COUNT 295 X10'3 (140-440); RED BLOOD COUNT 4.58 X10'6 (4.20-5.60); RED CELL DISTRIBUTION WIDTH 18.9 % (11.5-14.5)
[2019-07-04 13:12] LABS: ALBUMIN/GLOBULIN RATIO 0.6 (1.1-1.5); ALKALINE PHOSPHATASE 177 IU/L (46-116); BLOOD UREA NITROGEN 60 MG/DL (7-18); BUN/CREATININE RATIO 33.1 (6.6-38.0); CALCIUM 8.6 MG/DL (8.5-10.1); CHLORIDE 93 MMOL/L (99-107); CREATININE 1.81 MG/DL (0.40-0.90); PRE OP ALT 31 U/L (30-65); PRE OP ANION GAP 7 (8-16); PRE OP AST 30 U/L (10-37); PRE OP BILIRUB, TOTAL 0.4 MG/DL (0.0-1.0); PRE OP GLUCOSE 114 MG/DL (70-104); PRE OP SODIUM 131 MMOL/L (135-145); TOTAL CARBON DIOXIDE 31.5 MMOL/L (24-32); TOTAL PROTEIN 7.8 G/DL (6.4-8.2); eGFR 28 ML/MIN
[2019-07-04 13:24] LABS: PRE OP POTASSIUM 3.3 MMOL/L (3.4-5.1)
[2019-07-04 13:33] LABS: ANISOCYTOSIS 2+; MICROCYTOSIS 1+; PLATELET ESTIMATE NORMAL
[2019-07-04 13:34] LABS: SPHEROCYTES FEW
[~2019-07-10] VITALS: Ht 160 cm; Wt 49.4 kg
[~2019-07-10 08:44] MED LIST changes: -ASPI-1071 PO; +ASPI-611 PO; -BARIUM SULFATE/METHYLCELLULOSE 600 ML SUSPENSION BOTTLE**DONT ENTER PO ONE; -BIOT5CAP3 PO; -COR3.125T PO; +IPRA4AER IH; -ISOS30TA6 PO; -LEVO750T21 PO; -ONDA4TAB12 PO; +TIOT4MIS3 INH; -hyDRALAzine tablet PO
[2019-07-10] MEDS ORDERED: famotidine 20mg tablet PO ONE (10:30)
[2019-07-10] MEDS ORDERED: albuterol 2.5 MG/3 ML nebule NEB ONE (10:30)
[2019-07-10] MEDS ORDERED: ceFOXitin 2 GM ADDVANTGE BAG 50 ML IV ONE (10:30)
[2019-07-10] MEDS ORDERED: ringers solution, lacted 1,000 ML IV SCH ×2 (10:30→12:51)
[2019-07-10 11:21] LABS: ISTAT CREATININE 2.5 mg/dL (0.6-1.1); ISTAT HGB 12.6 g/dl (12.0-16.0); ISTAT IONIZED CALCIUM 1.13 mmol/L (1.03-1.32); ISTAT K 4.6 mmol/L (3.5-5.1); POC BUN/CREATININE RATIO 24.8 (6.6-38.0)
[2019-07-10] MEDS ORDERED: ondansetron/PF 4mg/2ml inj IV PRN ×3 (11:35→14:30)
[2019-07-10 11:44] VITALS: BP 123/56
[2019-07-10 11:49] VITALS: BP 123/56
[2019-07-10] MEDS ORDERED: meperidine/PF 25mg/ml syringe IV PRN ×3 (12:55)
[2019-07-10] MEDS ORDERED: proCHLORperazine 10 MG/2 ml inj IV PRN (12:55)
[2019-07-10] MEDS ORDERED: morphine 4 MG/ML inj SYRINge IV PRN ×2 (12:55)
[2019-07-10] MEDS ORDERED: epiNEPHrine 1 mg/ml inj IM PRN (14:15)
[2019-07-10] MEDS ORDERED: morphine ER 30mg tablet PO PRN (14:15)
--- NOTE | 2019-07-10 14:25 | NUR ---
pt surgery cancelled due to elevated cr. spoke with pt, she will be admitted until her creatinine is at a safe level for anesthesia then will be taken to the OR. dr Melgar to admit, he spoke with anesthesia. report given to receiving rn. pt will be transferred to 354a after she has eaten.
[2019-07-10] MEDS ORDERED: acetaminophen 325mg tablet PO PRN (14:30)
[2019-07-10] MEDS ORDERED: magnesium hydroxide 30ml (MOM) UD suspension PO PRN (14:30)
[2019-07-10] MEDS ORDERED: mag hydrox/Alum hydrox/simeth 30ml oral suspension PO PRN (14:30)
[2019-07-10] MEDS ORDERED: ipratropium 0.5 MG/2.5ML nebule IH PRN (15:05)
[2019-07-10] MEDS ORDERED: albuterol 2.5 MG/3 ML nebule NEB PRN (15:10)
[2019-07-10] MEDS: oxyCODONE IR 5mg (immed. release) tablet PO PRN (15:15)
[2019-07-10 16:33] LABS: BASOPHILS # (AUTO) 0.1 X10'3 (0-0.2); BASOPHILS % (AUTO) 0.5 % (0-1); EOSINOPHILS # (AUTO) 0.1 X10'3 (0-0.9); EOSINOPHILS % (AUTO) 1.1 % (0-6); HEMATOCRIT 36.9 % (35.0-45.0); HEMOGLOBIN 11.9 g/dl (12.0-16.0); LYMPHOCYTES % (AUTO) 22.8 % (21-51); MEAN CORPUSCULAR HEMOGLOBIN 25.7 PG (27.0-31.0); MEAN CORPUSCULAR HGB CONC 32.3 g/dL (33.0-36.5); MEAN CORPUSCULAR VOLUME 79.5 FL (78-98); MEAN PLATELET VOLUME 8.3 FL (7.4-10.4); MONOCYTES # (AUTO) 0.7 X10'3 (0-0.9); MONOCYTES % (AUTO) 5.2 % (2-12); NEUTROPHILS # (AUTO) 9.2 X10'3 (1.8-7.7); NEUTROPHILS % (AUTO) 70.4 % (42-75); PLATELET COUNT 263 X10'3 (140-440); RED BLOOD COUNT 4.64 X10'6 (4.20-5.60); RED CELL DISTRIBUTION WIDTH 19.1 % (11.5-14.5); WHITE BLOOD COUNT 13.1 X10'3 (4.5-11.0)
[2019-07-10 16:57] LABS: ALBUMIN 2.9 G/DL (3.4-5.0); ANION GAP 10 (8-16); BLOOD UREA NITROGEN 60 MG/DL (7-18); BUN/CREATININE RATIO 26.1 (6.6-38.0); CALCIUM 8.8 MG/DL (8.5-10.1); CHLORIDE 94 MMOL/L (99-107); GLUCOSE 103 MG/DL (70-104); SODIUM 133 MMOL/L (135-145); TOTAL CARBON DIOXIDE 28.8 MMOL/L (24-32); eGFR 21 ML/MIN
[2019-07-10 17:00] VITALS: BP 108/46
[2019-07-10 17:01] LABS: POTASSIUM 2.9 MMOL/L (3.5-5.1)
[2019-07-10] MEDS ORDERED: magnesium Cl slow-release 64mg tablet PO PRN (17:10)
[2019-07-10] MEDS ORDERED: potassium Cl 20 mEq SR tablet PO PRN (17:10)
[2019-07-10] MEDS ORDERED: magnesium 4gm in 100ml NS 100 ML IV PRN (17:10)
[2019-07-10] MEDS ORDERED: potassium CL 10mEq/100ml bag 100 ML IV PRN (17:10)
[2019-07-10] MEDS: morphine ER 30mg tablet PO SCH ×2 (17:22→20:00)
[2019-07-10] MEDS: potassium Cl 20 mEq SR tablet PO PRN (17:36)
[2019-07-10] MEDS: normal saline 1000ml 1,000 ML IV SCH (17:47)
--- NOTE | 2019-07-10 18:30 | NUR ---
Patient in room NAN 354. I have received report from CAROLYN HARRIS and had the opportunity to ask questions and assume patient care.
[2019-07-10 20:00] VITALS: BP 108/55
[2019-07-10] MEDS: lactobacillus rhamnosus 10,000 MMU CELLS/CAPSULE PO SCH (20:07)
[2019-07-10] MEDS: amitriptyline 25mg tablet PO SCH (20:07)
[2019-07-11] VITALS: BP 109/56
[2019-07-11] MEDS: morphine ER 30mg tablet PO SCH ×4 (02:46→21:30)
[2019-07-11] MEDS: normal saline 1000ml 1,000 ML IV SCH ×3 (02:46→23:09)
[2019-07-11] MEDS: potassium Cl 20 mEq SR tablet PO PRN (06:45)
[2019-07-11 07:00] VITALS: BP 98/48
[2019-07-11] MEDS: aspirin 81mg tablet.DR PO SCH (07:11)
[2019-07-11] MEDS: lactobacillus rhamnosus 10,000 MMU CELLS/CAPSULE PO SCH ×2 (07:11→21:29)
[2019-07-11] MEDS: vitamin D (cholecalciferol) 1,000 unit tablet PO SCH (07:11)
[2019-07-11] MEDS ORDERED: piperacillin/tazo 3.375gm/50ml 50 ML IV SCH (08:31)
[2019-07-11 09:51] LABS: POTASSIUM 4.1 MMOL/L (3.5-5.1)
[2019-07-11 11:00] VITALS: BP 98/46
--- NOTE | 2019-07-11 16:45 | NUR ---
Initial: Pt admit w/ enterocutaneous fistula hx previous stoma site now leaking per RN. DX ELSIE and dehydration r/t poor oral intake which pt contributes to stoma per EMR. Will need fistula repair per MD note. Pt placed on renal diet w/ low Na and K since admit; ÁNGEL d/w RN regarding advancing to regular diet per MD approval given renal restrictions. Chopped meats added given pt hx trouble chewing on last admit as well. LBM 07/10. Current PO and physical assessment pending. Will continue to monitor for PO tolerance and ONS needs. Rec: 1. advance to regular diet per MD 2. monitor for ONS needs 3. weekly wts Addendum: 07/11/19 at [address] Amended: Links added.
[2019-07-11] MEDS: oxyCODONE IR 5mg (immed. release) tablet PO PRN (17:22)
[2019-07-11 17:56] LABS: SODIUM,URINE RANDOM < 15 MEQ/L
[2019-07-11 17:59] LABS: OSMOLALITY UA 377 MOSM/K (50-1400)
--- NOTE | 2019-07-11 18:13 | NUR ---
Problems reprioritized. Patient report given, questions answered & plan of care reviewed with yusuf goldberg rn.
--- NOTE | 2019-07-11 18:30 | NUR ---
Patient in room NAN 354. I have received report from JOSE HARRIS and had the opportunity to ask questions and assume patient care.
[2019-07-11 20:00] VITALS: BP 105/48
[2019-07-11] MEDS ORDERED: piperacillin/tazo 3.375gm/50 ML IV SCH (20:00)
[2019-07-11] MEDS: amitriptyline 25mg tablet PO SCH (21:30)
[2019-07-12] VITALS: BP 108/54
[2019-07-12] MEDS: morphine ER 30mg tablet PO SCH ×4 (02:00→20:12)
[2019-07-12] MEDS: normal saline 1000ml 1,000 ML IV SCH ×3 (05:27→21:49)
--- NOTE | 2019-07-12 06:30 | NUR ---
Problems reprioritized. Patient report given, questions answered & plan of care reviewed with CHAPO HARRIS.
--- NOTE | 2019-07-12 07:03 | NUR ---
Patient in room NAN 354. I have received report from Mariana and had the opportunity to ask questions and assume patient care.
[2019-07-12] MEDS: aspirin 81mg tablet.DR PO SCH (07:45)
[2019-07-12] MEDS: lactobacillus rhamnosus 10,000 MMU CELLS/CAPSULE PO SCH ×2 (07:45→20:12)
[2019-07-12] MEDS: vitamin D (cholecalciferol) 1,000 unit tablet PO SCH (07:46)
[2019-07-12] MEDS: piperacillin/tazo 3.375gm/50 ML IV SCH ×2 (08:14→20:13)
[2019-07-12 09:35] LABS: BASOPHILS % (AUTO) 0.5 % (0-1); EOSINOPHILS # (AUTO) 0.1 X10'3 (0-0.9); EOSINOPHILS % (AUTO) 1.2 % (0-6); HEMATOCRIT 32.2 % (35.0-45.0); HEMOGLOBIN 10.4 g/dl (12.0-16.0); LYMPHOCYTES # (AUTO) 1.7 X10'3 (1.1-4.8); LYMPHOCYTES % (AUTO) 18.7 % (21-51); MEAN CORPUSCULAR HGB CONC 32.4 g/dL (33.0-36.5); MEAN CORPUSCULAR VOLUME 80.5 FL (78-98); MEAN PLATELET VOLUME 8.3 FL (7.4-10.4); MONOCYTES # (AUTO) 0.6 X10'3 (0-0.9); MONOCYTES % (AUTO) 6.3 % (2-12); NEUTROPHILS # (AUTO) 6.6 X10'3 (1.8-7.7); NEUTROPHILS % (AUTO) 73.3 % (42-75); PLATELET COUNT 184 X10'3 (140-440); RED CELL DISTRIBUTION WIDTH 19.3 % (11.5-14.5)
[2019-07-12 09:44] LABS: ALBUMIN 2.1 G/DL (3.4-5.0); ANION GAP 7 (8-16); BLOOD UREA NITROGEN 29 MG/DL (7-18); BUN/CREATININE RATIO 23.2 (6.6-38.0); CALCIUM 7.6 MG/DL (8.5-10.1); CHLORIDE 105 MMOL/L (99-107); CREATININE 1.25 MG/DL (0.40-0.90); GLUCOSE 83 MG/DL (70-104); POTASSIUM 4.1 MMOL/L (3.5-5.1); SODIUM 140 MMOL/L (135-145); TOTAL CARBON DIOXIDE 27.8 MMOL/L (24-32); eGFR 42 ML/MIN
[2019-07-12 10:53] VITALS: BP 107/50
[2019-07-12 11:00] VITALS: BP 117/44
[2019-07-12 11:00] LABS: PLATELET ESTIMATE NORMAL
[2019-07-12 11:01] LABS: HYPOCHROMASIA 1+; POLYCHROMASIA FEW
--- NOTE | 2019-07-12 13:05 | NUR ---
Wound care POC. Consult received to asses for recommendations for fistula management. Spoke with pt and she has been dealing with the fistula for about 6 months now. She states that a center in [place] has sent her supplies to try to help, she has worked with [facility] ostomy care as well as home health and nothing has been successful to manage output for her. She states that she has never been NPO indicating that it has not been attempted to close fistula spontaneously. Upon assessment the fistula is prominent and presents as a stoma to the abdominal midline with stool like output. I spoke with her about options and she was adamant about not wanting to put a bag on as she does not think it will work. I tried a high absorbency dressing and was called back to the bedside shortly after as it had not held and pt experienced stool down her abdomen and leg. Supplies left at bedside to cover with gauze and abd and secure with medipore tape as that is what the pt wants at this time. Possibility that pt may return to surgery with Dr. Casiano to repair. Nursing can manage dressing changes PRN at this time since this is not a wound. WOC staff will follow for any additional needs or recommendations.
--- NOTE | 2019-07-12 18:42 | NUR ---
Problems reprioritized. Patient report given, questions answered & plan of care reviewed with Elodia HARRIS.
[2019-07-12 19:00] VITALS: BP 120/50
[2019-07-12] MEDS: amitriptyline 25mg tablet PO SCH (21:48)
[2019-07-13] VITALS (19 sets, daily range): BP systolic 97–143; BP diastolic 42–76
--- NOTE | 2019-07-13 06:45 | NUR ---
Problems reprioritized. Patient report given, questions answered & plan of care reviewed with Nedra HARRIS. Addendum: 07/13/19 at 0645 by Elodia Rainey RN Amended: Links added.
[2019-07-13] MEDS: aspirin 81mg tablet.DR PO SCH (08:00)
[2019-07-13] MEDS: lactobacillus rhamnosus 10,000 MMU CELLS/CAPSULE PO SCH ×2 (08:13→20:26)
[2019-07-13] MEDS: morphine ER 30mg tablet PO SCH ×2 (08:13→20:26)
[2019-07-13] MEDS: vitamin D (cholecalciferol) 1,000 unit tablet PO SCH (08:13)
[2019-07-13] MEDS: normal saline 1000ml 1,000 ML IV SCH (08:18)
[2019-07-13 08:25] LABS: BASOPHILS % (AUTO) 0.7 % (0-1); EOSINOPHILS # (AUTO) 0.1 X10'3 (0-0.9); HEMATOCRIT 30.5 % (35.0-45.0); HEMOGLOBIN 9.9 g/dl (12.0-16.0); LYMPHOCYTES # (AUTO) 1.7 X10'3 (1.1-4.8); LYMPHOCYTES % (AUTO) 26.1 % (21-51); MEAN CORPUSCULAR HEMOGLOBIN 26.3 PG (27.0-31.0); MEAN CORPUSCULAR HGB CONC 32.7 g/dL (33.0-36.5); MEAN CORPUSCULAR VOLUME 80.5 FL (78-98); MEAN PLATELET VOLUME 8.3 FL (7.4-10.4); MONOCYTES # (AUTO) 0.5 X10'3 (0-0.9); MONOCYTES % (AUTO) 7.1 % (2-12); NEUTROPHILS # (AUTO) 4.1 X10'3 (1.8-7.7); NEUTROPHILS % (AUTO) 64.1 % (42-75); PLATELET COUNT 151 X10'3 (140-440); RED BLOOD COUNT 3.79 X10'6 (4.20-5.60); RED CELL DISTRIBUTION WIDTH 19.3 % (11.5-14.5); WHITE BLOOD COUNT 6.4 X10'3 (4.5-11.0)
[2019-07-13 08:38] LABS: ALANINE AMINOTRANSFERASE 15 U/L (12-78); ALBUMIN 1.9 G/DL (3.4-5.0); ALBUMIN/GLOBULIN RATIO 0.6 (1.1-1.5); ALKALINE PHOSPHATASE 114 IU/L (46-116); ANION GAP 8 (8-16); ASPARTATE AMINO TRANSFERASE 19 U/L (10-37); BILIRUBIN,TOTAL 0.2 MG/DL (0.1-1.0); BLOOD UREA NITROGEN 18 MG/DL (7-18); CALCIUM 7.5 MG/DL (8.5-10.1); CHLORIDE 111 MMOL/L (99-107); CREATININE 1.06 MG/DL (0.40-0.90); GLUCOSE 74 MG/DL (70-104); POTASSIUM 3.8 MMOL/L (3.5-5.1); SODIUM 143 MMOL/L (135-145); TOTAL CARBON DIOXIDE 24.1 MMOL/L (24-32); TOTAL PROTEIN 5.3 G/DL (6.4-8.2); eGFR 51 ML/MIN
[2019-07-13 08:53] LABS: PARTIAL THROMBOPLASTIN TIME 27 SECONDS (22-32)
[2019-07-13 09:27] LABS: ANISOCYTOSIS 2+; HYPOCHROMASIA 1+; PLATELET ESTIMATE NORMAL
[2019-07-13] MEDS: piperacillin/tazo 3.375gm/50 ML IV SCH ×2 (09:45→16:19)
[2019-07-13] MEDS ORDERED: dextrose 50%-water 50ml dispensing syringe IV PRN ×2 (10:00)
[2019-07-13] MEDS ORDERED: dextrose ORAL solution 15 GM/59 ML bottle PO PRN ×2 (10:00)
[2019-07-13] MEDS ORDERED: glucagon, human recombinant 1mg kit SUBCUT PRN (10:00)
[2019-07-13] MEDS ORDERED: dextrose 50%-water 50ml dispensing syringe IV ONE (10:05)
[2019-07-13] MEDS: dextrose 5%-1/2 normal saline 1,000 ML IV SCH ×2 (10:13→16:19)
--- NOTE | 2019-07-13 10:30 | NUR ---
Called [facility] advised patients blood sugar was 58 gave 25ml D50 and rechecked her blood sugar now is 109. Received orders from Dr Watkins for 1/2 NS D5@100
--- NOTE | 2019-07-13 12:58 | NUR ---
patient taken to surgery via hospital bed .
[2019-07-13] MEDS ORDERED: dexamethasone sod phosphate 10mg/ml inj ONE (13:15)
[2019-07-13] MEDS ORDERED: desflurane 240ml liquid inh. IH ONE (13:15)
[2019-07-13] MEDS ORDERED: glycopyrrolate 0.2mg/ml inj ONE (13:15)
[2019-07-13] MEDS ORDERED: ondansetron/PF 4mg/2ml inj ONE (13:15)
[2019-07-13] MEDS ORDERED: neostigmine methylsulfate 1 MG/ML 10ml vial ONE (13:15)
[2019-07-13] MEDS ORDERED: fentaNYL /PF 50mcg/ml 5ml ampule ONE (13:17)
[2019-07-13] MEDS ORDERED: midazolam 2 mg/2 ml injection ONE (13:17)
[2019-07-13] MEDS ORDERED: ceFOXitin 2 GM ADDVANTGE BAG 50 ML IV ONE (13:18)
[2019-07-13] MEDS ORDERED: rocuronium 10mg/ml inj IV ONE (13:19)
[2019-07-13] MEDS ORDERED: LIDOcaine 2% 5ml jelly ONE (13:19)
[2019-07-13] MEDS ORDERED: propofol inj 20 ML IV ONE (13:19)
[2019-07-13] MEDS ORDERED: LIDOcaine 2% (20mg/ml) 5ml vial ONE (13:19)
[2019-07-13] MEDS ORDERED: ringers solution, lacted 1,000 ML IV SCH (14:04)
[2019-07-13] MEDS ORDERED: morphine 4 MG/ML inj SYRINge IV PRN ×2 (14:05)
[2019-07-13] MEDS ORDERED: proCHLORperazine 10 MG/2 ml inj IV PRN (14:05)
[2019-07-13] MEDS ORDERED: ondansetron/PF 4mg/2ml inj IV PRN (14:05)
[2019-07-13] MEDS ORDERED: meperidine/PF 25mg/ml syringe IV PRN ×3 (14:05)
--- NOTE | 2019-07-13 14:40 | NUR ---
ADMITTED TO PACU FROM OR ACCOMPANIED BY ANESTHESIA. INTIAL PHYSICAL ASSESSMENT DONE AND RECORDED. AWAKE AND RESPONSE ON ARRIVE YO PACU, REPORT RECEIVED FROM ANESTHESIA.
--- NOTE | 2019-07-13 14:45 | NUR ---
MEDICATED FOR SURGICAL PAIN BY DR. GIRALDO
--- NOTE | 2019-07-13 15:45 | NUR ---
PACU DISCHARGE CRITERIA MET, REPORT GIVEN TO FLOOR. C/O MILD PAIN/DISCOMFORT, ADVISED WILLIAM HARRIS RE POSSIBLE NEED FOR PAIN MED ON ARRIVAL TO ROOM. TRANSFERRED TO ROOM VIA BED IN STABLE GOOD CONDITION.
[2019-07-13] MEDS: oxyCODONE IR 5mg (immed. release) tablet PO PRN (16:18)
--- NOTE | 2019-07-13 18:42 | NUR ---
Problems reprioritized. Patient report given, questions answered & plan of care reviewed with Prudence RN.
--- NOTE | 2019-07-13 18:48 | NUR ---
Patient in room NAN 350. I have received report from Nedra HARRIS and had the opportunity to ask questions and assume patient care.
[2019-07-13] MEDS: amitriptyline 25mg tablet PO SCH (20:26)
[2019-07-14] VITALS: BP 93/54
[2019-07-14] MEDS: piperacillin/tazo 3.375gm/50 ML IV SCH ×4 (00:18→23:16)
[2019-07-14] MEDS: dextrose 5%-1/2 normal saline 1,000 ML IV SCH ×3 (00:26→22:21)
[2019-07-14] MEDS: normal saline 1000ml 1,000 ML IV SCH ×3 (01:09→21:09)
--- NOTE | 2019-07-14 06:43 | NUR ---
Problems reprioritized. Patient report given, questions answered & plan of care reviewed with Gracie HARRIS.Patient is resting.
--- NOTE | 2019-07-14 06:55 | NUR ---
Patient in room NAN 350. I have received report from michelle rendon and had the opportunity to ask questions and assume patient care.
[2019-07-14 07:00] VITALS: BP 127/62
[2019-07-14] MEDS: lactobacillus rhamnosus 10,000 MMU CELLS/CAPSULE PO SCH ×2 (08:22→19:39)
[2019-07-14] MEDS: vitamin D (cholecalciferol) 1,000 unit tablet PO SCH (08:22)
[2019-07-14] MEDS: morphine ER 30mg tablet PO SCH ×2 (08:22→19:39)
[2019-07-14] MEDS: aspirin 81mg tablet.DR PO SCH (08:22)
[2019-07-14 11:00] VITALS: BP 135/61
[2019-07-14] MEDS: oxyCODONE IR 5mg (immed. release) tablet PO PRN (15:04)
--- NOTE | 2019-07-14 15:16 | NUR ---
reassessment: Pt s/p 1cm jejunal resection w/ lysis of adhesions for fistula resection and correction. Advanced to full liquids diet PO pending w/ 25-50% clear prior to OR. Pt wants to eat more per MD note. LBM 07/13. Receiving DEX for low GLU this AM. Ensure high protein TIDWM added; MD notified pending verification prior to sending on trays. Will continue to monitor. Rec: 1. advance to regular diet per MD 2. ensure high protein TIDWM; pend MD verification prior to sending on trays 3. weekly wts Addendum: 07/14/19 at [address] Amended: Links added.
--- NOTE | 2019-07-14 16:31 | NUR ---
patient up x2 ambulating in hallway. felt nauseaous, and vomited small amount of emesis in BR. Zofran administered with effect . surgical incision to abdomen CDI minimal drainage. commenced at lunch with full liquid diet. will continue to monitor.APPEARS COMFORTABLE AT TIME OF REPORT.
[2019-07-14] MEDS: lactose-reduced food (Ensure High Protein) 237ml bottle PO SCH (18:00)
--- NOTE | 2019-07-14 18:39 | NUR ---
Patient in room NAN 350. I have received report from Gracie Piña and had the opportunity to ask questions and assume patient care. Addendum: 07/14/19 at 1840 by Rosy Thomas RN Amended: Links added.
--- NOTE | 2019-07-14 18:40 | NUR ---
Problems reprioritized. Patient report given, questions answered & plan of care reviewed with desirae HARRIS.
[2019-07-14 20:00] VITALS: BP 174/88
--- NOTE | 2019-07-14 20:02 | NUR ---
pt with active bowel sounds unable to pass flatus yet and uncomfortable due to this, pt given hs and pain medication and warm water to drink. abd dressing dry and intact and after drinking warm water with encouragement pt ambulated up in the [place] x2 laps and tolerated well.
--- NOTE | 2019-07-14 22:25 | NUR ---
pt resting eyes closed without chaGES,
[2019-07-14] MEDS: amitriptyline 25mg tablet PO SCH (23:13)
--- NOTE | 2019-07-14 23:28 | NUR ---
PT AWAKE AMYTRIPLINE GIVEN TO HER WHEN GETTING FROM PHARMACY AND ZOSYN ABX HUNG. PT AMBULATED TO [facility].
[2019-07-15] VITALS: BP 126/53
--- NOTE | 2019-07-15 03:35 | NUR ---
iv leaking dc'd cath intact. x2 sticks one gotten in left foearm on the second stick.
--- NOTE | 2019-07-15 04:37 | NUR ---
resting eyes closed without changes.
--- NOTE | 2019-07-15 05:34 | NUR ---
passing flatus now but remains distended to abd.
--- NOTE | 2019-07-15 06:29 | NUR ---
Problems reprioritized. Patient report given, questions answered & plan of care reviewed with Gracie Piña. Addendum: 07/15/19 at 0630 by Rosy Thomas RN Amended: Links added.
--- NOTE | 2019-07-15 07:03 | NUR ---
Patient in room NAN 350. I have received report from Rosy HARRIS and had the opportunity to ask questions and assume patient care.
[2019-07-15] MEDS: normal saline 1000ml 1,000 ML IV SCH (07:09)
[2019-07-15] MEDS: aspirin 81mg tablet.DR PO SCH (07:53)
[2019-07-15] MEDS: lactobacillus rhamnosus 10,000 MMU CELLS/CAPSULE PO SCH ×2 (07:53→20:48)
[2019-07-15] MEDS: morphine ER 30mg tablet PO SCH ×2 (07:53→20:46)
[2019-07-15] MEDS: vitamin D (cholecalciferol) 1,000 unit tablet PO SCH (07:53)
[2019-07-15] MEDS: piperacillin/tazo 3.375gm/50 ML IV SCH ×4 (07:56→23:13)
--- NOTE | 2019-07-15 07:57 | NUR ---
came on shift midnight dose os zosyn have not been infused due to problem with tubing.
[2019-07-15 08:00] VITALS: BP 122/58
[2019-07-15] MEDS: lactose-reduced food (Ensure High Protein) 237ml bottle PO SCH ×3 (08:00→18:00)
[2019-07-15] MEDS ORDERED: methylnaltrexone br 12mg/0.6ml inj***SubQ only SQ ONE (08:30)
[2019-07-15 11:00] VITALS: BP 116/50
[2019-07-15] MEDS: dextrose 5%-1/2 normal saline 1,000 ML IV SCH ×2 (13:01→23:14)
--- NOTE | 2019-07-15 14:51 | NUR ---
Wound care POC. Arrived at bedside to assess any wound care needs. Pt states she is post op since Monday and states that her fistula is gone. Nursing changing surgical dressing.
[2019-07-15] MEDS: oxyCODONE IR 5mg (immed. release) tablet PO PRN (15:44)
--- NOTE | 2019-07-15 17:43 | NUR ---
Patient had a bloody BM Dr Ness aware and advised patient to stay for another night for observation until second clear BM. Patient started regular diet at lunch time well tolerated. patient cooperative with care ambulated independently this shift.
--- NOTE | 2019-07-15 18:15 | NUR ---
Problems reprioritized. Patient report given, questions answered & plan of care reviewed with Rosy HARRIS.
--- NOTE | 2019-07-15 18:25 | NUR ---
Patient in room NAN 350. I have received report from Candy Piña's and had the opportunity to ask questions and assume patient care. Addendum: 07/15/19 at 1956 by Rosy Thomas RN Amended: Links added.
[2019-07-15 19:30] VITALS: BP 129/48
--- NOTE | 2019-07-15 20:30 | NUR ---
pt given hs meds and pain medication for back pain.
[2019-07-15] MEDS: amitriptyline 25mg tablet PO SCH (20:48)
--- NOTE | 2019-07-15 22:00 | NUR ---
warm blanket given no complaints at this time.
--- NOTE | 2019-07-15 23:27 | NUR ---
pt resting eyes closed awoke briefly for medications.
[2019-07-16] VITALS (9 sets, daily range): BP systolic 109–128; BP diastolic 36–69
--- NOTE | 2019-07-16 00:59 | NUR ---
remains resting without changes.
--- NOTE | 2019-07-16 02:34 | NUR ---
pt resting eyes closed without changes.
--- NOTE | 2019-07-16 04:22 | NUR ---
resting eyes closed without s&s of distress at this time.
[2019-07-16] MEDS: oxyCODONE IR 5mg (immed. release) tablet PO PRN ×2 (05:34→17:45)
--- NOTE | 2019-07-16 05:43 | NUR ---
awoke c/o abd pain and medicated with oxy ir for this . pt stated having cramps abd soft.
--- NOTE | 2019-07-16 06:27 | NUR ---
Problems reprioritized. Patient report given, questions answered & plan of care reviewed with Ashley Piña. Addendum: 07/16/19 at 0627 by Rosy Thomas RN Amended: Links added.
[2019-07-16] MEDS: lactose-reduced food (Ensure High Protein) 237ml bottle PO SCH ×3 (08:00→18:00)
[2019-07-16] MEDS: dextrose 5%-1/2 normal saline 1,000 ML IV SCH ×2 (08:00→18:00)
[2019-07-16] MEDS: aspirin 81mg tablet.DR PO SCH (08:00)
[2019-07-16 08:24] LABS: BASOPHILS % (AUTO) 0.3 % (0-1); EOSINOPHILS # (AUTO) 0.2 X10'3 (0-0.9); EOSINOPHILS % (AUTO) 2.5 % (0-6); LYMPHOCYTES # (AUTO) 1.7 X10'3 (1.1-4.8); LYMPHOCYTES % (AUTO) 27.3 % (21-51); MEAN CORPUSCULAR HGB CONC 32.2 g/dL (33.0-36.5); MEAN CORPUSCULAR VOLUME 80.8 FL (78-98); MEAN PLATELET VOLUME 8.9 FL (7.4-10.4); MONOCYTES # (AUTO) 0.3 X10'3 (0-0.9); MONOCYTES % (AUTO) 5.1 % (2-12); NEUTROPHILS # (AUTO) 4.1 X10'3 (1.8-7.7); NEUTROPHILS % (AUTO) 64.8 % (42-75); PLATELET COUNT 110 X10'3 (140-440); RED BLOOD COUNT 2.49 X10'6 (4.20-5.60); RED CELL DISTRIBUTION WIDTH 18.8 % (11.5-14.5); WHITE BLOOD COUNT 6.4 X10'3 (4.5-11.0)
[2019-07-16 08:29] LABS: HEMATOCRIT 20.1 % (35.0-45.0); HEMOGLOBIN 6.5 g/dl (12.0-16.0)
[2019-07-16 09:13] LABS: ANISOCYTOSIS 2+; HYPOCHROMASIA 1+; MICROCYTOSIS 1+; PLATELET ESTIMATE NORMAL
[2019-07-16] MEDS: vitamin D (cholecalciferol) 1,000 unit tablet PO SCH (09:25)
[2019-07-16] MEDS: lactobacillus rhamnosus 10,000 MMU CELLS/CAPSULE PO SCH ×2 (09:25→21:54)
[2019-07-16] MEDS: piperacillin/tazo 3.375gm/50 ML IV SCH ×2 (09:25→16:16)
[2019-07-16] MEDS: morphine ER 30mg tablet PO SCH ×2 (09:25→21:54)
[2019-07-16] MEDS: pantoprazole 40 MG vial IV SCH ×2 (11:37→21:52)
--- NOTE | 2019-07-16 13:42 | NUR ---
Reassessment: Patient's diet has been advanced to regular, PO intake continues to average 50% likely closely meeting nutrient needs. Pt seen at bedside endorses a large appetite and requests double protein TID as well as cottage cheese with all dinners. ONS still pending [facility]. Pt reports some difficulty chewing and requests chopped meat BIDLD. LBM 07/15 which pt reports was dark. Previous BM 07/13 however pt received one time dose of Reglan on 07/15. Pt requests prunes and prune juice with all dinners. All requests d/w dietary. Will continue to follow. Rec: 1. continue regular diet 2. ensure high protein TIDWM; pend MD verification prior to sending on trays 3. chop meat BIDLD; double protein TID; cottage cheese, prunes, and prune juice QD at dinner 4. weekly wts Addendum: 07/16/19 at [address] Amended: Links added.
[2019-07-16 17:19] LABS: HEMATOCRIT 22.2 % (35.0-45.0); HEMOGLOBIN 7.2 g/dl (12.0-16.0); MEAN CORPUSCULAR HEMOGLOBIN 26.7 PG (27.0-31.0); MEAN CORPUSCULAR HGB CONC 32.5 g/dL (33.0-36.5); MEAN CORPUSCULAR VOLUME 82.2 FL (78-98); MEAN PLATELET VOLUME 8.6 FL (7.4-10.4); PLATELET COUNT 145 X10'3 (140-440); RED CELL DISTRIBUTION WIDTH 17.5 % (11.5-14.5); WHITE BLOOD COUNT 6.5 X10'3 (4.5-11.0)
--- NOTE | 2019-07-16 19:06 | NUR ---
Gave report to Emili Bermudez RN.
[2019-07-16] MEDS: amitriptyline 25mg tablet PO SCH (21:56)
[2019-07-17] VITALS (8 sets, daily range): BP systolic 120–143; BP diastolic 49–72
[2019-07-17] MEDS: piperacillin/tazo 3.375gm/50 ML IV SCH ×2 (00:23→08:17)
[2019-07-17 02:15] LABS: HEMOGLOBIN 7.2 g/dl (12.0-16.0); MEAN CORPUSCULAR HEMOGLOBIN 26.7 PG (27.0-31.0); MEAN CORPUSCULAR HGB CONC 32.9 g/dL (33.0-36.5); MEAN CORPUSCULAR VOLUME 81.1 FL (78-98); MEAN PLATELET VOLUME 8.3 FL (7.4-10.4); PLATELET COUNT 145 X10'3 (140-440); RED BLOOD COUNT 2.72 X10'6 (4.20-5.60); RED CELL DISTRIBUTION WIDTH 17.8 % (11.5-14.5); WHITE BLOOD COUNT 5.7 X10'3 (4.5-11.0)
[2019-07-17] MEDS: dextrose 5%-1/2 normal saline 1,000 ML IV SCH (03:05)
--- NOTE | 2019-07-17 06:24 | NUR ---
Problems reprioritized. Patient report given, questions answered & plan of care reviewed with KIMBERLY Mensah. Addendum: 07/17/19 at 0625 by Luana Briones RN Amended: Links added.
[2019-07-17] MEDS: lactose-reduced food (Ensure High Protein) 237ml bottle PO SCH ×2 (08:00→12:53)
[2019-07-17] MEDS: aspirin 81mg tablet.DR PO SCH (08:00)
[2019-07-17] MEDS: lactobacillus rhamnosus 10,000 MMU CELLS/CAPSULE PO SCH (08:17)
[2019-07-17] MEDS: morphine ER 30mg tablet PO SCH (08:17)
[2019-07-17] MEDS: vitamin D (cholecalciferol) 1,000 unit tablet PO SCH (08:17)
[2019-07-17] MEDS: pantoprazole 40 MG vial IV SCH (08:17)
[2019-07-17] MEDS ORDERED: simethicone 80mg chew tab PO PRN (09:55)
[2019-07-17] MEDS ORDERED: furosemide 20 MG/2 ML vial IV ONE (09:55)
[2019-07-17] MEDS ORDERED: methylnaltrexone br 12mg/0.6ml inj***SubQ only SQ ONE (09:55)
--- NOTE | 2019-07-17 10:00 | NUR ---
PT C/O "BEING PUFFY". EDEMA NOTED IN PELVIC AREA, TRACE EDEMA BLE. LUNGS OK. MD ROQUE MADE AWARE. SEE NEW ORDERS. SURGEON AWARE OF ORDERS WELL.
--- NOTE | 2019-07-17 10:51 | NUR ---
PAUSED BLOOD TRANSFUSION R/T LEAKING IV
--- NOTE | 2019-07-17 12:50 | NUR ---
Per WOCN the pt's abdomen is distended with fluid and stretching the incision to reveal small amount of tissue at superior portion of incision. Primary RN, Ashley is aware and stated Dr. Watkins is aware and Lasix 20 mg was admin to pt. Upon assessment of abdomen I noted the findings of WOCN nurse. Belly is firm, cool to touch, skin pale, extending into upper thigh areas. The patient denies this is unusual. Visualizing incision confirms WOCN assessment. Pt continues to have blood transfused per MD order. Call placed to Dr. Casiano informing him of abdomen's appearance. He stated pt has "no muscle left" on abdomen, and that she is at high risk for wd opening. "If you can get her to stay then she can have more Lasix in the morning, but I'm sure she wont stay. She can't have more lasix too quicklydue to risk of kidney injury. If she goes home today then have her see me in my office in the morning." I informed pt of Dr. Casiano' concerns. She began crying stating she wants to talk to him and to go home and "get back to my life". Pt stated she has Lasix at home, and I instructed her that she can not take more Lasix without a doctor's order today, and Dr. Watkins is covering her at this time. She stated she wants to go home and see Dr. Casiano in his office tomorrow stating, "I can see him anytime. I can be there first thing in the morning." Ashley, RN was at bedside and notified of situation.
--- NOTE | 2019-07-17 13:18 | NUR ---
WOUND INFECTION EDUCATION PROVIDED BY WOUND CARE 1. Patient instructed to call their primary doctor, or go the ED immediately if any of the following symptoms occur: * Increased pain in wound * Increase in drainage from the wound * Redness in the skin surrounding the wound * Warmth in the skin surrounding the wound * Bleeding from the wound * Temperature of 101 or greater 2. If any of these occur while in the hospital tell a nurse immediately. Addendum: 07/17/19 at 1319 by Indu Britton RN Amended: Links added.
[2019-07-17 15:02] LABS: HEMATOCRIT 31.9 % (35.0-45.0); HEMOGLOBIN 10.6 g/dl (12.0-16.0); MEAN CORPUSCULAR HEMOGLOBIN 27.1 PG (27.0-31.0); MEAN CORPUSCULAR HGB CONC 33.1 g/dL (33.0-36.5); PLATELET COUNT 169 X10'3 (140-440); RED BLOOD COUNT 3.89 X10'6 (4.20-5.60); RED CELL DISTRIBUTION WIDTH 17.2 % (11.5-14.5); WHITE BLOOD COUNT 9.5 X10'3 (4.5-11.0)
--- NOTE | 2019-07-17 16:13 | NUR ---
PT. EAGER TO GO HOME. STATES SHE HAS ALREADY MADE A F/U [facility]AV[facility]. WITH [facility] OFFICE FOR TOMORROW AT 9:15. SHE IS EDEMOUTUS BUT STATES SHE WILL TAKE HER HOME PRESCRIPTION OF LASIX. VITALS WNL. HEMOGRAM WNL. MD BRISCOEU IN TO DISCUSS DISCHARGE AND EDUCATE PT. PLANS TO DISCHARGE WITH KNOWLEDGE THAT PT. WILL F/U TOMORROW AT [facility] OFFICE.
[2019-07-17] MEDS ORDERED: PANT40TA4 PO (16:18)
--- NOTE | 2019-07-17 17:25 | NUR ---
Pt. discharged is a stable condition. Dressed herself and gathered her belongs. Reviewed discharge paperwork with pt. md Parker notified of pt.'s discharge. 20 lb weight restriction discussed with pt. Surgeon oked pt. to take showers. Clean bandages provided for pt. in case pt. showed today. Pt is aware to keep incision clean and dry. She has an appointment set up at [facility]'s office at 9:15am 07/18/19. Education provided concerning s/sx of bleeding, wound care, and constipation after surgery. Pt. given education on not to take aspirin, and to take new medication of protonix as ordered. Written prescription given to pt. Pt. is aware to return to ER if any s/sx of bleeding noted including jacey blood. She has been advice from consuming multiple laxatives. She has been advised to ambulate often. Her came to pick her up in his private vehicle to go home. IV was DC'd, pressure bandage applied with no s/sx bleeding noted. ID wristbands removed.
[2019-07-17] MEDS ORDERED: pantoprazole 40mg Tablet.DR PO SCH (20:00)
== END 2019-07-17 17:28 | disposition home health service (06) | DRG 329 ==
LOC: PAS IN 09:37 → EDSTATUS 15:00 → SUR 3N 15:53
PROVIDERS: ADMIT Surgery; ATTEND Internal Medicine
PROC: 0DBA0ZZ Excision of Jejunum, Open Approach (ICD-10-PCS; 2019-07-13)
PROC: 0DQA0ZZ Repair Jejunum, Open Approach (ICD-10-PCS; principal; 2019-07-13 13:15)
PROC: 30233N1 Transfusion of Nonautologous Red Blood Cells into Peripheral Vein, Percutaneous Approach (ICD-10-PCS; 2019-07-16)
PROC: 30233N1 Transfusion of Nonautologous Red Blood Cells into Peripheral Vein, Percutaneous Approach (ICD-10-PCS; 2019-07-17)
DX: K63.2 Fistula of intestine (principal); E43 Unspecified severe protein-calorie malnutrition; N17.9 Acute kidney failure, unspecified; D62 Acute posthemorrhagic anemia; Z68.1 Body mass index [BMI] 19.9 or less, adult; K92.2 Gastrointestinal hemorrhage, unspecified; E86.0 Dehydration; E87.6 Hypokalemia; I50.9 Heart failure, unspecified; J44.9 Chronic obstructive pulmonary disease, unspecified; G89.29 Other chronic pain; N20.0 Calculus of kidney; Z88.1 Allergy status to other antibiotic agents; Z88.6 Allergy status to analgesic agent; Z88.8 Allergy status to other drugs, medicaments and biological substances; Z91.030 Bee allergy status; Z79.82 Long term (current) use of aspirin; Z79.899 Other long term (current) drug therapy; Z82.0 Family history of epilepsy and other diseases of the nervous system; Z80.9 Family history of malignant neoplasm, unspecified; Z90.710 Acquired absence of both cervix and uterus; Z98.84 Bariatric surgery status; Z87.891 Personal history of nicotine dependence
CPT/HCPCS: 36415; 76775; 80047; 80048; 80053; 82570; 82948; 83605; 83735; 83880; 83935; 84132; 84145; 84300; 85025; 85027; 85610; 85730; 86885; 86900; 86901; 86920; 87040; 87081; 93005; 94640; 94760; A4618; A6253; A6449; A7000; C1758; C9113; G0378; J0694; J1100; J1940; J2001; J2212; J2250; J2405; J2543; J2704; J2710; J3010; J3490; J7030; J7120; P9016

== ENCOUNTER 2019-07-26 08:38 | Outpatient (CLI) | payer MEDICARE, OTHER ==
[~2019-07-26 08:38] MED LIST changes: -ASPI-611 PO; +PANT40TA4 PO
== END 2019-07-26 23:59 | disposition home or self-care (01) ==
LOC: 64 CT 08:38
PROVIDERS: ATTEND Surgery
DX: N28.1 Cyst of kidney, acquired (principal); K86.1 Other chronic pancreatitis; I70.0 Atherosclerosis of aorta; R18.8 Other ascites; K86.89 Other specified diseases of pancreas; J92.9 Pleural plaque without asbestos; K63.2 Fistula of intestine; R10.30 Lower abdominal pain, unspecified; Z90.710 Acquired absence of both cervix and uterus
CPT/HCPCS: 74176

== ENCOUNTER 2019-08-24 00:54 | Emergency (ER) | payer MEDICARE, OTHER ==
[~2019-08-24] VITALS: Ht 160 cm; Wt 55.0 kg
[2019-08-24] MEDS ORDERED: normal saline 1000ML IV soln IVB ONE ×2 (01:25→02:35)
[2019-08-24] MEDS ORDERED: normal saline 1000ml 1,000 ML IV ONE (01:25)
[2019-08-24 01:32] LABS: BASOPHILS % (AUTO) 0.3 % (0-1); EOSINOPHILS # (AUTO) 0.2 X10'3 (0-0.9); HEMATOCRIT 35.4 % (35.0-45.0); HEMOGLOBIN 11.8 g/dl (12.0-16.0); LYMPHOCYTES # (AUTO) 2.6 X10'3 (1.1-4.8); LYMPHOCYTES % (AUTO) 32.2 % (21-51); MEAN CORPUSCULAR HEMOGLOBIN 27.6 PG (27.0-31.0); MEAN CORPUSCULAR HGB CONC 33.2 g/dL (33.0-36.5); MEAN CORPUSCULAR VOLUME 83.2 FL (78-98); MEAN PLATELET VOLUME 9.3 FL (7.4-10.4); MONOCYTES # (AUTO) 0.5 X10'3 (0-0.9); MONOCYTES % (AUTO) 5.6 % (2-12); NEUTROPHILS # (AUTO) 4.7 X10'3 (1.8-7.7); NEUTROPHILS % (AUTO) 58.9 % (42-75); PLATELET COUNT 191 X10'3 (140-440); RED BLOOD COUNT 4.26 X10'6 (4.20-5.60); RED CELL DISTRIBUTION WIDTH 17.5 % (11.5-14.5)
--- NOTE | 2019-08-24 02:00 | NUR ---
ATTEMPTED TO OBTAIN UA. PT INCONTINENT AND UNABLE TO PROVIDE DUE TO ALOC. MD AWARE. NO STRAIGHT CATH ORDERED.
[2019-08-24 02:03] LABS: ALANINE AMINOTRANSFERASE 13 U/L (12-78); ALBUMIN 2.7 G/DL (3.4-5.0); ALBUMIN/GLOBULIN RATIO 0.6 (1.1-1.5); ALKALINE PHOSPHATASE 189 IU/L (46-116); ANION GAP 9 (8-16); ASPARTATE AMINO TRANSFERASE 30 U/L (10-37); BILIRUBIN,TOTAL 0.3 MG/DL (0.1-1.0); BLOOD UREA NITROGEN 18 MG/DL (7-18); BUN/CREATININE RATIO 12.3 (6.6-38.0); CALCIUM 8.1 MG/DL (8.5-10.1); CHLORIDE 103 MMOL/L (99-107); CREATININE 1.46 MG/DL (0.40-0.90); GLUCOSE 104 MG/DL (70-104); POTASSIUM 3.6 MMOL/L (3.5-5.1); SODIUM 139 MMOL/L (135-145); TOTAL CARBON DIOXIDE 26.6 MMOL/L (24-32); TOTAL PROTEIN 7.4 G/DL (6.4-8.2); eGFR 35 ML/MIN
[2019-08-24 02:11] LABS: ETHANOL < 0.010 GM/DL (0.0-0.010)
[2019-08-24 02:12] LABS: PARTIAL THROMBOPLASTIN TIME 25 SECONDS (22-32)
--- NOTE | 2019-08-24 02:17 | NUR ---
PT ZOLTAN DEVINE CALLED. GIVEN UPDATE. PHONE NUMBER [phone]
--- NOTE | 2019-08-24 02:22 | NUR ---
PT HAD BM ON BED. PT RECEIVED COMPLETE BED CHANGE, RICHI CARE, AND BRIEF APPLIED.
[2019-08-24 03:30] VITALS: BP 102/45
== END 2019-08-24 03:00 | disposition home or self-care (01) ==
LOC: ER 00:55
DX: T40.691A Poisoning by other narcotics, accidental (unintentional), initial encounter (principal); R41.82 Altered mental status, unspecified; J44.9 Chronic obstructive pulmonary disease, unspecified; G89.29 Other chronic pain; Z98.890 Other specified postprocedural states; Z88.6 Allergy status to analgesic agent; Z88.5 Allergy status to narcotic agent; Z88.8 Allergy status to other drugs, medicaments and biological substances; Z79.899 Other long term (current) drug therapy; Y92.89 Other specified places as the place of occurrence of the external cause
CPT/HCPCS: 71045; 80053; 80320; 83880; 84484; 85025; 85610; 85730; 93005; 96360; 99284; J7030; J7040

== ENCOUNTER 2019-08-29 18:47 | Emergency (ER) | payer MEDICARE, OTHER ==
[~2019-08-29] VITALS: Ht 160 cm; Wt 50.9 kg
[2019-08-29] MEDS ORDERED: LIDOcaine 1% w/EPI 1:200,000 injection 10mL vial IM ONE (19:10)
[2019-08-29] MEDS ORDERED: LIDOcaine 1% W/epiNEPHrine 1:200,000 10ml vial IJ ONE (19:20)
--- NOTE | 2019-08-29 19:58 | NUR ---
MARTINA HAWTHORNE AT BEDSIDE SUTURING FOREHEAD LAC. PT REMAINS POLITE AND COOPERATIVE. STABLE VS.
[2019-08-29] MEDS ORDERED: traMADol 50MG tablet PO ONE (20:10)
[2019-08-29] MEDS ORDERED: CEPH250T PO (20:11)
[2019-08-29 20:46] VITALS: BP 132/62
== END 2019-08-29 21:07 | disposition home or self-care (01) ==
LOC: ER 18:47
DX: S01.112A Laceration without foreign body of left eyelid and periocular area, initial encounter (principal); S50.312A Abrasion of left elbow, initial encounter; S80.212A Abrasion, left knee, initial encounter; S80.211A Abrasion, right knee, initial encounter; J44.9 Chronic obstructive pulmonary disease, unspecified; G89.29 Other chronic pain; Z98.890 Other specified postprocedural states; Z91.018 Allergy to other foods; Z88.5 Allergy status to narcotic agent; Z88.6 Allergy status to analgesic agent; Z88.8 Allergy status to other drugs, medicaments and biological substances; Z79.899 Other long term (current) drug therapy; W01.0XXA Fall on same level from slipping, tripping and stumbling without subsequent striking against object, initial encounter; Y93.89 Activity, other specified; Y92.89 Other specified places as the place of occurrence of the external cause; Y99.8 Other external cause status
CPT/HCPCS: 12052; 70450; 99284

== ENCOUNTER 2020-12-05 18:09 | Emergency (ER) | payer MEDICARE, OTHER ==
[~2020-12-05] VITALS: Ht 154.9 cm; Wt 54.0 kg
[~2020-12-05 18:09] MED LIST changes: +BIOT5TAB PO; +DOCU100C40 PO; +OMEGA PO; +ONDA4TAB6 PO; -OXYC-658 PO; -PANT40TA4 PO; +[UNRECOGNIZED DRUG - OTHER] PO; +cholecalciferol PO; +dyazide PO
[2020-12-05 18:14] VITALS: BP 149/53
[2020-12-05] MEDS ORDERED: baclofen 10mg tablet PO STA (19:13)
[2020-12-05] MEDS ORDERED: METH-360 PO (19:20)
--- NOTE | 2020-12-05 19:22 | NUR ---
Called Kirill to come slat pickler patient. [phone]
== END 2020-12-05 19:42 | disposition home or self-care (01) ==
LOC: ER 18:10
DX: S80.11XA Contusion of right lower leg, initial encounter (principal); S20.212A Contusion of left front wall of thorax, initial encounter; J44.9 Chronic obstructive pulmonary disease, unspecified; G89.29 Other chronic pain; G20 Parkinson's disease; Z85.9 Personal history of malignant neoplasm, unspecified; Z88.8 Allergy status to other drugs, medicaments and biological substances; Z91.030 Bee allergy status; Z91.048 Other nonmedicinal substance allergy status; Z79.899 Other long term (current) drug therapy; W18.2XXA Fall in (into) shower or empty bathtub, initial encounter; Z91.81 History of falling; Y93.89 Activity, other specified; Y93.E1 Activity, personal bathing and showering; Y92.89 Other specified places as the place of occurrence of the external cause; Y99.8 Other external cause status
CPT/HCPCS: 73590; 99284

== ENCOUNTER 2020-12-10 17:11 | Inpatient (IN) | payer MEDICARE, OTHER ==
[~2020-12-10] VITALS: Ht 154.9 cm; Wt 55.9 kg
--- NOTE | 2020-12-10 | NUR ---
PT arrived to unit via gurney from IR accompanied by IR RN's. PT transferred to ICU bed and placed on bedside monitor. PT has a drsg to RT groin from procedure that is CDI. PT is noted to be hypertensive with SBP 170's, all other VS are stable. PT receiving 2L O2 to NC which PT states she wears at home. Sheridan placed as ordered, good urine output and draining to gravity. PT has a drsg to LT heel and to RT anterior lower leg, Drsgs were removed, pictures taken and placed in chart. Bed is locked and low. Call light is within reach will continue to monitor. Addendum: 12/11/20 at 0110 by lAisson Pak RN date incorrect.
[~2020-12-10 17:11] MED LIST changes: +METH-360 PO
[2020-12-10 17:45] LABS: BASOPHILS # (AUTO) 0.1 X10'3 (0-0.2); BASOPHILS % (AUTO) 0.4 % (0-1); EOSINOPHILS % (AUTO) 0.1 % (0-6); HEMATOCRIT 25.1 % (35.0-45.0); HEMOGLOBIN 7.7 g/dl (12.0-16.0); LYMPHOCYTES % (AUTO) 7.8 % (21-51); MEAN CORPUSCULAR HEMOGLOBIN 22.7 PG (27.0-31.0); MEAN CORPUSCULAR HGB CONC 30.8 g/dL (33.0-36.5); MEAN CORPUSCULAR VOLUME 73.9 FL (78-98); MEAN PLATELET VOLUME 8.4 FL (7.4-10.4); MONOCYTES # (AUTO) 0.9 X10'3 (0-0.9); MONOCYTES % (AUTO) 7.7 % (2-12); NEUTROPHILS # (AUTO) 10.2 X10'3 (1.8-7.7); PLATELET COUNT 317 X10'3 (140-440); RED CELL DISTRIBUTION WIDTH 19.2 % (11.5-14.5); WHITE BLOOD COUNT 12.1 X10'3 (4.5-11.0)
[2020-12-10 18:01] LABS: ALANINE AMINOTRANSFERASE 18 U/L (12-78); ALBUMIN 2.5 G/DL (3.4-5.0); ALBUMIN/GLOBULIN RATIO 0.6 (1.1-1.5); ALKALINE PHOSPHATASE 144 IU/L (46-116); ANION GAP 10 (8-16); ASPARTATE AMINO TRANSFERASE 26 U/L (10-37); BILIRUBIN,TOTAL 0.2 MG/DL (0.1-1.0); BLOOD UREA NITROGEN 34 MG/DL (7-18); BUN/CREATININE RATIO 20.1 (6.6-38.0); CALCIUM 9.1 MG/DL (8.5-10.1); CHLORIDE 101 MMOL/L (99-107); CREATININE 1.69 MG/DL (0.40-0.90); GLUCOSE 120 MG/DL (70-104); POTASSIUM 5.7 MMOL/L (3.5-5.1); SODIUM 136 MMOL/L (135-145); TOTAL CARBON DIOXIDE 25.2 MMOL/L (24-32); TOTAL PROTEIN 6.8 G/DL (6.4-8.2); eGFR 30 ML/MIN
[2020-12-10 18:06] LABS: PLATELET ESTIMATE NORMAL
[2020-12-10 18:07] LABS: ANISOCYTOSIS 2+; ELLIPTOCYTES FEW; HYPOCHROMASIA 1+; MICROCYTOSIS 1+; POLYCHROMASIA 1+
[2020-12-10] MEDS ORDERED: normal saline 1000ML IV soln IVB ONE (19:45)
--- NOTE | 2020-12-10 20:02 | NUR ---
PATIENT GOING TO CT
[2020-12-10 20:12] LABS: CLARITY,URINE CLEAR (Clear); COLOR,URINE YELLOW (Yellow); GLUCOSE, URINE NEGATIVE (Neg); KETONES,URINE NEGATIVE (Neg); LEUKOCYTE ESTERASE ,URINE NEGATIVE (Neg); NITRITES, URINE NEGATIVE (Neg); OCCULT BLOOD,URINE NEGATIVE (Neg); PH,URINE 6.5 (4.8-8.0); PROTEIN,URINE NEGATIVE (Neg); UROBILINOGEN,URINE 0.2 E.U/dL (0.2-1.0)
[2020-12-10 20:17] LABS: UA COLLECTION TYPE CLN CATCH MIDSTREAM
[2020-12-10] MEDS ORDERED: fentaNYL/PF 50MCG/1 ML 2ML syringe IV ONE (20:40)
[2020-12-10] MEDS ORDERED: ondansetron/PF 4mg/2ml inj IV ONE (20:40)
[2020-12-10] MEDS ORDERED: LIDOcaine 2% 10ml TOPICAL JELLY (Urojet) TP ONE ×2 (20:40→21:05)
[2020-12-10] MEDS ORDERED: acetaminophen 325mg tablet PO PRN ×2 (21:05)
[2020-12-10] MEDS ORDERED: ondansetron/PF 4mg/2ml inj IV PRN (21:05)
[2020-12-10] MEDS ORDERED: magnesium hydroxide 30ml (MOM) UD suspension PO PRN (21:05)
--- NOTE | 2020-12-10 21:28 | NUR ---
SURGICAL TO BE HERE IN 15 MIN
[2020-12-10] MEDS ORDERED: gelatin sponge, absorbable (Gelfoam 12-7MM) sponge TP ONE (21:30)
--- NOTE | 2020-12-10 21:36 | NUR ---
SURGERY HERE TO GET HERE
[2020-12-10 21:38] LABS: PARTIAL THROMBOPLASTIN TIME 25 SECONDS (22-32)
[2020-12-10] MEDS ORDERED: iohexol 300mg/ml 100ml inj. ONE (21:40)
[2020-12-10] MEDS ORDERED: LIDOcaine 1%/PF 5ML 10 MG/ML VIAL ONE (21:40)
[2020-12-10] MEDS ORDERED: heparin 1,000 UNITS/NS 500ml 500 ML ONE (21:40)
[2020-12-10] MEDS ORDERED: midazolam 2 mg/2 ml injection ONE (21:40)
[2020-12-10] MEDS ORDERED: fentaNYL/PF 50MCG/1 ML 2ML syringe ONE (21:40)
--- NOTE | 2020-12-10 21:48 | NUR ---
I have received report from Carol ED RN and had the opportunity to ask questions and assume patient care. Room is set up and ready for PT arrival.
[2020-12-10] MEDS ORDERED: ceFAZolin 1000mg inj IR ONE (21:50)
[2020-12-10] MEDS ORDERED: ceFAZolin/dextrose, iso. 1 GM/50ml bag IV ONE (21:55)
[2020-12-10 22:27] VITALS: BP 154/71
[2020-12-10 22:42] VITALS: BP 165/73
--- NOTE | 2020-12-10 22:58 | NUR ---
I have received report from Rita HARRIS from IR and had the opportunity to ask questions and assume patient care. Room is set up and ready for PT arrival.
[2020-12-10 23:30] VITALS: BP 175/72
[2020-12-10 23:45] VITALS: BP 173/78
[2020-12-11] VITALS (25 sets, daily range): BP systolic 68–181; BP diastolic 54–79
--- NOTE | 2020-12-11 | NUR ---
PT arrived to unit via gurney from IR accompanied by IR RN's. PT transferred to ICU bed and placed on bedside monitor. PT has a drsg to RT groin from procedure that is CDI. PT is noted to be hypertensive with SBP 170's, all other VS are stable. PT receiving 2L O2 to NC which PT states she wears at home. Sheridan placed as ordered, good urine output and draining to gravity. PT has a drsg to LT heel and to RT anterior lower leg, Drsgs were removed, pictures taken and placed in chart. Bed is locked and low. Call light is within reach will continue to monitor.
[2020-12-11] MEDS ORDERED: furosemide 20 MG/2 ML vial IV ONE (00:05)
[2020-12-11] MEDS: labetalol 20mg/4ml (5mg/ml) syringe IV PRN ×5 (00:21→18:39)
--- NOTE | 2020-12-11 00:22 | NUR ---
10mg PRN Labetalol given for BP 196/75. Will continue to monitor.
[2020-12-11] MEDS ORDERED: ceFAZolin/dextrose, iso. 1 GM/50ml bag IV ONE (00:50)
[2020-12-11] MEDS: morphine 2 MG/ML inj. syringe IV PRN ×2 (01:55→06:40)
--- NOTE | 2020-12-11 02:30 | NUR ---
10mg PRN Labetalol given for BP 181/76. Will continue to monitor.
[2020-12-11 02:33] LABS: BASOPHILS # (AUTO) 0.2 X10'3 (0-0.2); BASOPHILS % (AUTO) 1.1 % (0-1); EOSINOPHILS % (AUTO) 0 % (0-6); HEMATOCRIT 25.7 % (35.0-45.0); HEMOGLOBIN 8.2 g/dl (12.0-16.0); LYMPHOCYTES # (AUTO) 1.4 X10'3 (1.1-4.8); MEAN CORPUSCULAR HGB CONC 31.7 g/dL (33.0-36.5); MEAN CORPUSCULAR VOLUME 75.7 FL (78-98); MONOCYTES # (AUTO) 1.9 X10'3 (0-0.9); MONOCYTES % (AUTO) 10.5 % (2-12); NEUTROPHILS # (AUTO) 14.3 X10'3 (1.8-7.7); NEUTROPHILS % (AUTO) 80.4 % (42-75); PLATELET COUNT 342 X10'3 (140-440); RED CELL DISTRIBUTION WIDTH 21.4 % (11.5-14.5); WHITE BLOOD COUNT 17.9 X10'3 (4.5-11.0)
[2020-12-11 02:44] LABS: ALBUMIN 2.4 G/DL (3.4-5.0); ANION GAP 6 (8-16); BLOOD UREA NITROGEN 29 MG/DL (7-18); BUN/CREATININE RATIO 20.3 (6.6-38.0); CALCIUM 8.6 MG/DL (8.5-10.1); CHLORIDE 100 MMOL/L (99-107); CREATININE 1.43 MG/DL (0.40-0.90); GLUCOSE 138 MG/DL (70-104); POTASSIUM 4.8 MMOL/L (3.5-5.1); SODIUM 133 MMOL/L (135-145); eGFR 36 ML/MIN
[2020-12-11] MEDS ORDERED: hydrALAZINE 20mg/ml inj. IV ONE (03:30)
[2020-12-11] MEDS ORDERED: morphine ER 30mg tablet PO PRN (03:55)
[2020-12-11 04:09] LABS: ANISOCYTOSIS 3+; ELLIPTOCYTES FEW; HYPOCHROMASIA 1+; MICROCYTOSIS 1+; PLATELET ESTIMATE NORMAL; POLYCHROMASIA FEW
--- NOTE | 2020-12-11 06:29 | NUR ---
Problems reprioritized. Patient report given, questions answered & plan of care reviewed with Mihaela HARRIS.
--- NOTE | 2020-12-11 06:30 | NUR ---
Patient in room ICU 2041. I have received report from karson and had the opportunity to ask questions and assume patient care.
[2020-12-11] MEDS ORDERED: SULF1TAB49 PO (07:18)
[2020-12-11 07:45] LABS: HEMATOCRIT 24.1 % (35.0-45.0); HEMOGLOBIN 7.6 g/dl (12.0-16.0); MEAN CORPUSCULAR HEMOGLOBIN 24.1 PG (27.0-31.0); MEAN CORPUSCULAR HGB CONC 31.6 g/dL (33.0-36.5); MEAN PLATELET VOLUME 8.7 FL (7.4-10.4); PLATELET COUNT 329 X10'3 (140-440); RED BLOOD COUNT 3.17 X10'6 (4.20-5.60); RED CELL DISTRIBUTION WIDTH 21.2 % (11.5-14.5); WHITE BLOOD COUNT 23.4 X10'3 (4.5-11.0)
--- NOTE | 2020-12-11 10:00 | NUR ---
pt sleepy, but arouses easily. c/o abd pain- ms 2mg iv given with relief. hgb decreasing. small amt of water and apple juice taken well, update to dr henry. iv infusing now.
[2020-12-11] MEDS: normal saline 1000ml 1,000 ML IV SCH ×2 (11:45→23:27)
[2020-12-11] MEDS ORDERED: EPINEPHRINE IM PRN (12:00)
[2020-12-11] MEDS ORDERED: non-formulary drug (Ondansetron Hcl (Zofran) 1 TAB) PO PRN (12:00)
[2020-12-11] MEDS ORDERED: TRIA1CAP2 PO (12:02)
[2020-12-11] MEDS ORDERED: OMEG1CAP46 PO (12:02)
[2020-12-11 12:41] LABS: HEMATOCRIT 26.3 % (35.0-45.0); HEMOGLOBIN 8.2 g/dl (12.0-16.0); MEAN CORPUSCULAR HEMOGLOBIN 23.9 PG (27.0-31.0); MEAN CORPUSCULAR HGB CONC 31.3 g/dL (33.0-36.5); MEAN CORPUSCULAR VOLUME 76.5 FL (78-98); MEAN PLATELET VOLUME 8.8 FL (7.4-10.4); PLATELET COUNT 336 X10'3 (140-440); RED BLOOD COUNT 3.44 X10'6 (4.20-5.60); WHITE BLOOD COUNT 24.6 X10'3 (4.5-11.0)
[2020-12-11] MEDS: ipratropium/albuterol 3ml nebule NEB SCH ×3 (13:00→21:03)
[2020-12-11] MEDS: morphine ER 30mg tablet PO SCH ×2 (13:07→20:03)
[2020-12-11] MEDS: pantoprazole 40mg Tablet.DR PO SCH (13:07)
--- NOTE | 2020-12-11 14:01 | NUR ---
up in chair with pt x 2 hrs- returned to bed. all home meds addressed. hgb improved. npo for now
[2020-12-11 18:15] LABS: HEMATOCRIT 24.7 % (35.0-45.0); MEAN CORPUSCULAR HEMOGLOBIN 24.1 PG (27.0-31.0); MEAN CORPUSCULAR HGB CONC 32.3 g/dL (33.0-36.5); MEAN CORPUSCULAR VOLUME 74.7 FL (78-98); MEAN PLATELET VOLUME 8.5 FL (7.4-10.4); PLATELET COUNT 361 X10'3 (140-440); RED BLOOD COUNT 3.31 X10'6 (4.20-5.60); RED CELL DISTRIBUTION WIDTH 20.9 % (11.5-14.5)
[2020-12-11 18:19] LABS: WHITE BLOOD COUNT 25.2 X10'3 (4.5-11.0)
--- NOTE | 2020-12-11 18:20 | NUR ---
Patient in room ICU 2041. I have received report from Mihaela HARRIS and had the opportunity to ask questions and assume patient care. Patient alert and oriented but sleepy. Her BP is high - systolic 188. Pushed 10mg of labetalol and it is down to 143/65. Will continue to monitor closely.
[2020-12-11] MEDS: docusate sod 100mg capsule PO SCH (20:02)
[2020-12-11] MEDS: lactobacillus rhamnosus 10,000 MMU CELLS/CAPSULE PO SCH (20:02)
[2020-12-11] MEDS: sulfamethoxazole/trimethoprim DS (800/160mg) tablet PO SCH (20:03)
[2020-12-11] MEDS: amitriptyline 50mg tablet PO SCH (20:03)
[2020-12-12] VITALS (17 sets, daily range): BP systolic 126–173; BP diastolic 54–76
[2020-12-12] MEDS: morphine ER 30mg tablet PO SCH (05:00)
--- NOTE | 2020-12-12 06:30 | NUR ---
Patient in room ICU 2041. I have received report from RN and had the opportunity to ask questions and assume patient care.
[2020-12-12 06:56] LABS: ANION GAP 7 (8-16); BLOOD UREA NITROGEN 24 MG/DL (7-18); BUN/CREATININE RATIO 21.4 (6.6-38.0); CALCIUM 8.2 MG/DL (8.5-10.1); CHLORIDE 102 MMOL/L (99-107); CREATININE 1.12 MG/DL (0.40-0.90); GLUCOSE 84 MG/DL (70-104); POTASSIUM 4.7 MMOL/L (3.5-5.1); SODIUM 135 MMOL/L (135-145); TOTAL CARBON DIOXIDE 25.9 MMOL/L (24-32); eGFR 48 ML/MIN
[2020-12-12] MEDS: ipratropium/albuterol 3ml nebule NEB SCH ×4 (07:00→21:25)
[2020-12-12] MEDS ORDERED: non-formulary drug (Tiotropium Br/Olodaterol HCl (Stiolto Respimat Inhal Spray) 2 PUFFS) INH SCH (08:00)
[2020-12-12] MEDS: sulfamethoxazole/trimethoprim DS (800/160mg) tablet PO SCH ×2 (08:00→21:58)
[2020-12-12] MEDS ORDERED: BIOTIN PO SCH (08:00)
[2020-12-12] MEDS ORDERED: OMEGA-3/DHA/EPA/FISH OIL 1 EACH CAPSULE.DR PO SCH (08:00)
[2020-12-12] MEDS ORDERED: triamterene/HCTZ 37.5/25mg tablet PO SCH (08:00)
[2020-12-12 08:20] LABS: BASOPHILS # (AUTO) 0.2 X10'3 (0-0.2); BASOPHILS % (AUTO) 0.7 % (0-1); EOSINOPHILS % (AUTO) 0.1 % (0-6); HEMATOCRIT 24.4 % (35.0-45.0); HEMOGLOBIN 7.7 g/dl (12.0-16.0); LYMPHOCYTES # (AUTO) 2.5 X10'3 (1.1-4.8); LYMPHOCYTES % (AUTO) 7.4 % (21-51); MEAN CORPUSCULAR HGB CONC 31.7 g/dL (33.0-36.5); MEAN CORPUSCULAR VOLUME 75.8 FL (78-98); MONOCYTES # (AUTO) 3.4 X10'3 (0-0.9); NEUTROPHILS # (AUTO) 27.5 X10'3 (1.8-7.7); NEUTROPHILS % (AUTO) 81.8 % (42-75); PLATELET COUNT 452 X10'3 (140-440); RED BLOOD COUNT 3.22 X10'6 (4.20-5.60); RED CELL DISTRIBUTION WIDTH 21.2 % (11.5-14.5)
[2020-12-12] MEDS: pantoprazole 40mg Tablet.DR PO SCH (08:31)
[2020-12-12] MEDS: lactobacillus rhamnosus 10,000 MMU CELLS/CAPSULE PO SCH ×2 (08:31→21:59)
[2020-12-12] MEDS: docusate sod 100mg capsule PO SCH ×2 (08:31→21:58)
[2020-12-12] MEDS: vitamin D (cholecalciferol) 1,000 unit tablet PO SCH (08:32)
[2020-12-12 08:48] LABS: WHITE BLOOD COUNT 33.6 X10'3 (4.5-11.0)
--- NOTE | 2020-12-12 09:00 | NUR ---
WBC 33.6 and HGB 7.7, DR Casiano aware.
[2020-12-12 09:17] LABS: TOTAL CELLS COUNTED 100
[2020-12-12 09:18] LABS: ANISOCYTOSIS 3+; MICROCYTOSIS 1+; PLATELET ESTIMATE INCREASED; POLYCHROMASIA FEW
[2020-12-12] MEDS ORDERED: morphine ER 15mg tablet PO SCH (13:00)
[2020-12-12] MEDS: normal saline 1000ml 1,000 ML IV SCH (15:04)
--- NOTE | 2020-12-12 15:31 | NUR ---
Report to Edith on U. PT taken with all belongings to U.
--- NOTE | 2020-12-12 16:12 | NUR ---
Patient in room PCU 3014. I have received report from SCHOOL VOCATIONAL EDUCATOR and had the opportunity to ask questions and assume patient care.
[2020-12-12] MEDS: morphine ER 15mg tablet PO SCH ×2 (17:10→23:35)
--- NOTE | 2020-12-12 17:35 | NUR ---
New MS Contin order at this time. Med not given at this time bc it would be too soon. Patient just received MS Contin 15mg at 1504 in ICU before being transferred to this floor.
[2020-12-12] MEDS: amitriptyline 50mg tablet PO SCH (21:58)
[2020-12-12] MEDS: methylnaltrexone br 12mg/0.6ml inj***SubQ only SQ SCH (21:59)
[2020-12-13 06:00] VITALS: BP 149/66
[2020-12-13] MEDS: ipratropium/albuterol 3ml nebule NEB SCH ×4 (07:25→19:14)
[2020-12-13] MEDS ORDERED: lactose-reduced food (Ensure Enlive) - 237ml bottle PO SCH (08:00)
[2020-12-13] MEDS: normal saline 1000ml 1,000 ML IV SCH ×2 (09:06→21:05)
[2020-12-13] MEDS: docusate sod 100mg capsule PO SCH ×2 (09:06→20:59)
[2020-12-13] MEDS: pantoprazole 40mg Tablet.DR PO SCH (09:06)
[2020-12-13] MEDS: lactobacillus rhamnosus 10,000 MMU CELLS/CAPSULE PO SCH ×2 (09:06→20:59)
[2020-12-13] MEDS: sulfamethoxazole/trimethoprim DS (800/160mg) tablet PO SCH ×2 (09:06→20:59)
[2020-12-13] MEDS: morphine ER 15mg tablet PO SCH ×2 (09:06→20:59)
[2020-12-13] MEDS: vitamin D (cholecalciferol) 1,000 unit tablet PO SCH (09:06)
[2020-12-13] MEDS: amLODIPine 5mg tablet PO SCH (09:11)
[2020-12-13 11:00] VITALS: BP 134/57
--- NOTE | 2020-12-13 12:04 | NUR ---
PAGER ID: [phone] MESSAGE: [phone] Jessica Garcia. Can we advance patients diet?
[2020-12-13] MEDS: morphine 2 MG/ML inj. syringe IV PRN (14:09)
[2020-12-13 15:00] VITALS: BP 136/55
[2020-12-13 18:00] VITALS: BP 126/50
--- NOTE | 2020-12-13 18:02 | NUR ---
PAGER ID: [phone] MESSAGE: [id number], patient would like diet advanced.
[2020-12-13] MEDS: amitriptyline 50mg tablet PO SCH (20:59)
[2020-12-13 22:00] VITALS: BP 134/54
[2020-12-14 02:00] VITALS: BP 138/59
--- NOTE | 2020-12-14 06:28 | NUR ---
Problems reprioritized. Patient report given, questions answered & plan of care reviewed with Eduar HARRIS.
[2020-12-14] MEDS: ipratropium/albuterol 3ml nebule NEB SCH ×4 (07:00→19:27)
[2020-12-14] MEDS: docusate sod 100mg capsule PO SCH ×2 (08:44→20:01)
[2020-12-14] MEDS: pantoprazole 40mg Tablet.DR PO SCH (08:44)
[2020-12-14] MEDS: amLODIPine 5mg tablet PO SCH (08:44)
[2020-12-14] MEDS: methylnaltrexone br 12mg/0.6ml inj***SubQ only SQ SCH (08:44)
[2020-12-14] MEDS: vitamin D (cholecalciferol) 1,000 unit tablet PO SCH (08:44)
[2020-12-14] MEDS: lactobacillus rhamnosus 10,000 MMU CELLS/CAPSULE PO SCH ×2 (08:45→20:01)
[2020-12-14] MEDS: sulfamethoxazole/trimethoprim DS (800/160mg) tablet PO SCH ×2 (08:45→20:01)
[2020-12-14] MEDS: morphine ER 15mg tablet PO SCH ×2 (08:45→20:01)
[2020-12-14 09:48] LABS: EOSINOPHILS # (AUTO) 0.1 X10'3 (0-0.9); EOSINOPHILS % (AUTO) 0.5 % (0-6); HEMATOCRIT 23.8 % (35.0-45.0)
[2020-12-14 09:50] LABS: ALBUMIN 1.9 G/DL (3.4-5.0); ANION GAP 8 (8-16); BASOPHILS # (AUTO) 0.2 X10'3 (0-0.2); BASOPHILS % (AUTO) 0.6 % (0-1); BLOOD UREA NITROGEN 17 MG/DL (7-18); BUN/CREATININE RATIO 17.2 (6.6-38.0); CALCIUM 8.1 MG/DL (8.5-10.1); CHLORIDE 102 MMOL/L (99-107); CREATININE 0.99 MG/DL (0.40-0.90); GLUCOSE 89 MG/DL (70-104); HEMOGLOBIN 7.4 g/dl (12.0-16.0); LYMPHOCYTES # (AUTO) 1.8 X10'3 (1.1-4.8); LYMPHOCYTES % (AUTO) 6.7 % (21-51); MEAN CORPUSCULAR HEMOGLOBIN 23.9 PG (27.0-31.0); MEAN CORPUSCULAR HGB CONC 31.2 g/dL (33.0-36.5); MEAN CORPUSCULAR VOLUME 76.5 FL (78-98); MONOCYTES # (AUTO) 2.7 X10'3 (0-0.9); MONOCYTES % (AUTO) 10.1 % (2-12); NEUTROPHILS % (AUTO) 82.1 % (42-75); PLATELET COUNT 734 X10'3 (140-440); POTASSIUM 4.4 MMOL/L (3.5-5.1); RED CELL DISTRIBUTION WIDTH 21.4 % (11.5-14.5); SODIUM 135 MMOL/L (135-145); TOTAL CARBON DIOXIDE 24.8 MMOL/L (24-32); eGFR 55 ML/MIN
[2020-12-14 09:57] LABS: WHITE BLOOD COUNT 26.8 X10'3 (4.5-11.0)
--- NOTE | 2020-12-14 10:01 | NUR ---
Page Sent to Dr. Welch promotional table spacer PAGER ID: [phone] MESSAGE: [id number] Tessa. Critical WBC 26.8 [place] [id number]
[2020-12-14 10:34] LABS: TOTAL CELLS COUNTED 100
[2020-12-14 10:35] LABS: ANISOCYTOSIS 3+; MICROCYTOSIS 1+; PLATELET ESTIMATE INCREASED
[2020-12-14 10:36] LABS: HYPOCHROMASIA 1+; POLYCHROMASIA FEW; SCHISTOCYTES FEW
[2020-12-14] MEDS: morphine 2 MG/ML inj. syringe IV PRN ×3 (12:41→22:06)
[2020-12-14] MEDS: normal saline 1000ml 1,000 ML IV SCH (12:41)
[2020-12-14] MEDS ORDERED: pneumococcal 23-VAL P-sac vacc 25 mcg/0.5ml vial IMVAC ONE (14:35)
[2020-12-14] MEDS ORDERED: haemoph B poly conj-tet tox/PF 10mcg/0.5ml vial IMVAC ONE (14:35)
[2020-12-14] MEDS ORDERED: mening vac A,C,Y,W-135 dip/PF 4 mcg/0.5 ml vaccine IMVAC ONE (14:35)
[2020-12-14 15:00] VITALS: BP 128/54
[2020-12-14 18:00] VITALS: BP 110/51
--- NOTE | 2020-12-14 18:30 | NUR ---
Patient in room PCU 3014. I have received report from KIMBERLY Witt and had the opportunity to ask questions and assume patient care.
[2020-12-14 22:00] VITALS: BP 120/53
[2020-12-14] MEDS: amitriptyline 50mg tablet PO SCH (22:07)
[2020-12-15] VITALS (10 sets, daily range): BP systolic 113–142; BP diastolic 53–62
[2020-12-15] MEDS: normal saline 1000ml 1,000 ML IV SCH ×2 (04:48→20:56)
--- NOTE | 2020-12-15 06:18 | NUR ---
Problems reprioritized. Patient report given, questions answered & plan of care reviewed with KIMBERLY Witt.
[2020-12-15] MEDS: ipratropium/albuterol 3ml nebule NEB SCH ×4 (07:22→19:38)
[2020-12-15 08:02] LABS: EOSINOPHILS # (AUTO) 0.4 X10'3 (0-0.9); EOSINOPHILS % (AUTO) 1.7 % (0-6); MONOCYTES # (AUTO) 2.7 X10'3 (0-0.9)
[2020-12-15 08:05] LABS: BASOPHILS # (AUTO) 0.5 X10'3 (0-0.2); BASOPHILS % (AUTO) 1.9 % (0-1); LYMPHOCYTES # (AUTO) 2.5 X10'3 (1.1-4.8); LYMPHOCYTES % (AUTO) 9.9 % (21-51); MEAN CORPUSCULAR HEMOGLOBIN 24.1 PG (27.0-31.0); MEAN CORPUSCULAR HGB CONC 31.9 g/dL (33.0-36.5); MEAN CORPUSCULAR VOLUME 75.8 FL (78-98); MONOCYTES % (AUTO) 10.7 % (2-12); NEUTROPHILS # (AUTO) 19.1 X10'3 (1.8-7.7); NEUTROPHILS % (AUTO) 75.8 % (42-75); PLATELET COUNT 821 X10'3 (140-440); RED BLOOD COUNT 2.69 X10'6 (4.20-5.60); RED CELL DISTRIBUTION WIDTH 21.3 % (11.5-14.5)
[2020-12-15 08:15] LABS: WHITE BLOOD COUNT 25.2 X10'3 (4.5-11.0)
[2020-12-15 08:16] LABS: HEMATOCRIT 20.4 % (35.0-45.0); HEMOGLOBIN 6.5 g/dl (12.0-16.0)
--- NOTE | 2020-12-15 08:26 | NUR ---
Notified Dr Welch of 3014-B critical lab values WBC 25.2, Hgb 6.5 nad Hct 20.4. Patient would also need a new type and screen collected per Lab. Awaiting new orders.
[2020-12-15] MEDS: lactobacillus rhamnosus 10,000 MMU CELLS/CAPSULE PO SCH ×2 (08:41→19:50)
[2020-12-15] MEDS: docusate sod 100mg capsule PO SCH ×2 (08:41→19:51)
[2020-12-15] MEDS: vitamin D (cholecalciferol) 1,000 unit tablet PO SCH (08:41)
[2020-12-15] MEDS: pantoprazole 40mg Tablet.DR PO SCH (08:41)
[2020-12-15] MEDS: sulfamethoxazole/trimethoprim DS (800/160mg) tablet PO SCH ×2 (08:41→19:51)
[2020-12-15] MEDS: morphine ER 15mg tablet PO SCH ×2 (08:41→19:51)
[2020-12-15] MEDS: amLODIPine 5mg tablet PO SCH (08:48)
[2020-12-15 09:19] LABS: ANISOCYTOSIS 3+; GIANT PLATELET FEW; LARGE PLATELETS FEW; MICROCYTOSIS 1+; PLATELET ESTIMATE INCREASED; TOTAL CELLS COUNTED 100
[2020-12-15 09:20] LABS: HYPOCHROMASIA 1+; POLYCHROMASIA FEW
[2020-12-15 09:38] LABS: ALBUMIN 1.6 G/DL (3.4-5.0); ANION GAP 7 (8-16); BLOOD UREA NITROGEN 15 MG/DL (7-18); BUN/CREATININE RATIO 16.3 (6.6-38.0); CALCIUM 8.2 MG/DL (8.5-10.1); CHLORIDE 104 MMOL/L (99-107); CREATININE 0.92 MG/DL (0.40-0.90); GLUCOSE 80 MG/DL (70-104); POTASSIUM 4.4 MMOL/L (3.5-5.1); SODIUM 134 MMOL/L (135-145); TOTAL CARBON DIOXIDE 23.5 MMOL/L (24-32); eGFR 60 ML/MIN
[2020-12-15] MEDS: morphine 2 MG/ML inj. syringe IV PRN ×2 (12:39→19:53)
--- NOTE | 2020-12-15 14:06 | NUR ---
Initial: pt presented to ED with c/o severe abdominal pain worsening after mechanical fall, increasing fatigue and weakness, no n/v, reporting normal BM. Admit per MD note with anemia, blunt splenic trauma, ELSIE, HTN, L heel and right periorbital wounds r/t fall. Pending CT of abdomen and pelvis. Appetite normal, eating 50% of heart healthy diet. No nutrition problem, pending discharge soon per MD note. Recommend: 1. continue heart healthy 2. routine bowel care 3. weight per rx Addendum: 12/15/20 at [address] Amended: Links added.
--- NOTE | 2020-12-15 14:08 | NUR ---
Patient to have CT scan in four hours NPO at this time ICE Chips ok per CT. Screening form completed.
[2020-12-15] MEDS ORDERED: iohexol 350MG/ML 100ml bottle IV ONE (14:40)
--- NOTE | 2020-12-15 16:45 | NUR ---
Patient R-IJ access infiltrated causing hematoma to right shoulder. IV access removed warm compress placed on site. New IV access placed on left forearm 20g Blood continued @120ml/hr no signs of distress noticed at this time will continue to monitor
--- NOTE | 2020-12-15 17:43 | NUR ---
Informed Dr Welch that 3014 B spouse would like to be updated on her results tomorrow if possible his phone number is [phone] Kirill Zarate
[2020-12-15] MEDS: amitriptyline 50mg tablet PO SCH (21:37)
[2020-12-15 23:15] LABS: HEMATOCRIT 24.8 % (35.0-45.0); HEMOGLOBIN 8.1 g/dl (12.0-16.0)
[2020-12-15 23:17] LABS: MEAN CORPUSCULAR HEMOGLOBIN 24.7 PG (27.0-31.0); MEAN CORPUSCULAR HGB CONC 32.4 g/dL (33.0-36.5); MEAN CORPUSCULAR VOLUME 76.3 FL (78-98); MEAN PLATELET VOLUME 7.5 FL (7.4-10.4); PLATELET COUNT 975 X10'3 (140-440); RED BLOOD COUNT 3.26 X10'6 (4.20-5.60); RED CELL DISTRIBUTION WIDTH 20.2 % (11.5-14.5)
[2020-12-16 00:14] LABS: WHITE BLOOD COUNT 27.1 X10'3 (4.5-11.0)
[2020-12-16 03:08] VITALS: BP 125/63
[2020-12-16] MEDS: morphine 2 MG/ML inj. syringe IV PRN ×3 (03:49→20:18)
[2020-12-16 06:00] VITALS: BP 128/65
[2020-12-16] MEDS: ipratropium/albuterol 3ml nebule NEB SCH ×4 (06:58→20:31)
[2020-12-16] MEDS: vitamin D (cholecalciferol) 1,000 unit tablet PO SCH (07:27)
[2020-12-16] MEDS: morphine ER 15mg tablet PO SCH ×2 (07:27→20:17)
[2020-12-16] MEDS: amLODIPine 5mg tablet PO SCH (07:29)
[2020-12-16] MEDS: methylnaltrexone br 12mg/0.6ml inj***SubQ only SQ SCH (07:30)
[2020-12-16] MEDS: lactobacillus rhamnosus 10,000 MMU CELLS/CAPSULE PO SCH ×2 (07:30→20:16)
[2020-12-16] MEDS: docusate sod 100mg capsule PO SCH ×2 (07:30→20:17)
[2020-12-16] MEDS: pantoprazole 40mg Tablet.DR PO SCH (07:30)
[2020-12-16] MEDS: sulfamethoxazole/trimethoprim DS (800/160mg) tablet PO SCH ×2 (07:30→20:17)
[2020-12-16 09:54] LABS: BASOPHILS # (AUTO) 0.1 X10'3 (0-0.2); HEMOGLOBIN 8.3 g/dl (12.0-16.0); LYMPHOCYTES # (AUTO) 1.5 X10'3 (1.1-4.8); LYMPHOCYTES % (AUTO) 5.6 % (21-51)
[2020-12-16 09:56] LABS: BASOPHILS % (AUTO) 0.6 % (0-1); EOSINOPHILS # (AUTO) 0.5 X10'3 (0-0.9); EOSINOPHILS % (AUTO) 1.8 % (0-6); HEMATOCRIT 26.2 % (35.0-45.0); MEAN CORPUSCULAR HEMOGLOBIN 24.7 PG (27.0-31.0); MEAN CORPUSCULAR HGB CONC 31.6 g/dL (33.0-36.5); MEAN CORPUSCULAR VOLUME 78.1 FL (78-98); MEAN PLATELET VOLUME 7.6 FL (7.4-10.4); MONOCYTES # (AUTO) 2.4 X10'3 (0-0.9); NEUTROPHILS # (AUTO) 21.8 X10'3 (1.8-7.7); RED BLOOD COUNT 3.36 X10'6 (4.20-5.60)
[2020-12-16 10:00] LABS: PLATELET COUNT 1073 X10'3 (140-440); WHITE BLOOD COUNT 26.3 X10'3 (4.5-11.0)
[2020-12-16 10:32] LABS: BANDS% (MANUAL) 0.5 % (0-10); BASOPHILS % (MANUAL) 0.5 % (0-1); METAMYLEOCYTES% (MANUAL) 1.5 % (0-0); MONOCYTES % (MANUAL) 10.5 % (2-12); NUCLEATED RED BLOOD CELLS 1 /100WBC (0-0); TOTAL CELLS COUNTED 200
[2020-12-16 10:33] LABS: ANISOCYTOSIS 2+; GIANT PLATELET FEW; LARGE PLATELETS FEW; MICROCYTOSIS 1+; PLATELET ESTIMATE INCREASED
[2020-12-16 10:35] LABS: POLYCHROMASIA 1+
[2020-12-16 10:36] LABS: HYPOCHROMASIA 1+
[2020-12-16 11:00] VITALS: BP 110/60
[2020-12-16 15:00] VITALS: BP 121/70
[2020-12-16] MEDS: normal saline 1000ml 1,000 ML IV SCH (17:00)
[2020-12-16 18:00] VITALS: BP 136/63
--- NOTE | 2020-12-16 18:00 | NUR ---
Patient in room PCU 3014. I have received report from Eduar HARRIS and had the opportunity to ask questions and assume patient care. Pt resting in bed. NAD noted, RR even and unlabored. Pt c/o pain, informed pt that I will bring pain medication. Safety precautions in place. Will continue to monitor.
[2020-12-16] MEDS: amitriptyline 50mg tablet PO SCH (20:16)
[2020-12-16 22:00] VITALS: BP 116/57
--- NOTE | 2020-12-17 | NUR ---
Pt continues to rest in bed. NAD noted, RR even and unlabored. Pt voiced no concerns. Will continue to monitor.
[2020-12-17 02:00] VITALS: BP 122/56
[2020-12-17 06:00] VITALS: BP 151/61
--- NOTE | 2020-12-17 06:22 | NUR ---
Problems reprioritized. Patient report given, questions answered & plan of care reviewed with Carmela HARRIS.
--- NOTE | 2020-12-17 06:24 | NUR ---
Patient in room PCU 3014. I have received report from Christian HARRIS and had the opportunity to ask questions and assume patient care.
--- NOTE | 2020-12-17 06:29 | NUR ---
Patient in room U 3014B. I have received report from KIMBERLY Gonzales and had the opportunity to ask questions and assume patient care.
[2020-12-17 07:03] VITALS: BP 151/61
[2020-12-17] MEDS: ipratropium/albuterol 3ml nebule NEB SCH (07:13)
[2020-12-17 07:27] LABS: EOSINOPHILS # (AUTO) 0.9 X10'3 (0-0.9); MEAN CORPUSCULAR HEMOGLOBIN 24.7 PG (27.0-31.0); MEAN CORPUSCULAR HGB CONC 31.7 g/dL (33.0-36.5); MEAN PLATELET VOLUME 7.7 FL (7.4-10.4)
[2020-12-17 07:30] LABS: BASOPHILS # (AUTO) 0.4 X10'3 (0-0.2); BASOPHILS % (AUTO) 1.5 % (0-1); EOSINOPHILS % (AUTO) 3.9 % (0-6); HEMOGLOBIN 7.9 g/dl (12.0-16.0); LYMPHOCYTES # (AUTO) 2.3 X10'3 (1.1-4.8); LYMPHOCYTES % (AUTO) 9.8 % (21-51); MONOCYTES # (AUTO) 2.6 X10'3 (0-0.9); NEUTROPHILS # (AUTO) 17.2 X10'3 (1.8-7.7); NEUTROPHILS % (AUTO) 73.8 % (42-75); RED BLOOD COUNT 3.21 X10'6 (4.20-5.60); RED CELL DISTRIBUTION WIDTH 20.3 % (11.5-14.5); WHITE BLOOD COUNT 23.3 X10'3 (4.5-11.0)
[2020-12-17] MEDS: lactobacillus rhamnosus 10,000 MMU CELLS/CAPSULE PO SCH (07:30)
[2020-12-17] MEDS: docusate sod 100mg capsule PO SCH (07:30)
[2020-12-17] MEDS: morphine ER 15mg tablet PO SCH (07:31)
[2020-12-17] MEDS: amLODIPine 5mg tablet PO SCH (07:36)
[2020-12-17] MEDS: pantoprazole 40mg Tablet.DR PO SCH (07:37)
[2020-12-17] MEDS: sulfamethoxazole/trimethoprim DS (800/160mg) tablet PO SCH (07:38)
[2020-12-17] MEDS: vitamin D (cholecalciferol) 1,000 unit tablet PO SCH (07:40)
[2020-12-17 07:42] LABS: PLATELET COUNT 1152 X10'3 (140-440)
[2020-12-17] MEDS: morphine 2 MG/ML inj. syringe IV PRN ×2 (07:50→12:06)
--- NOTE | 2020-12-17 08:06 | NUR ---
lab informed of high PLT count = 1152. Paged Dr. Marie BLANTON: a.m. labs = PLT 1152. yesterday 1073. Any new orders? Awaiting response.
--- NOTE | 2020-12-17 08:07 | NUR ---
Paged Dr Marie ANAYA last page : PtJose Zarate rm [id number] FYI: a.m. labs = PLT 1152. yesterday 1073. Any new orders?
[2020-12-17 11:00] VITALS: BP 106/49
[2020-12-17] MEDS ORDERED: MSC15T PO (12:05)
[2020-12-17] MEDS ORDERED: HYDR25TA5 PO (12:05)
[2020-12-17] MEDS ORDERED: AMIT75TA7 PO (12:05)
--- NOTE | 2020-12-17 12:36 | NUR ---
Paged Dr. Salazar: Discharging pt [place] [phone] need hard copy script for MS Contin please. Thank you Carmela [phone]
--- NOTE | 2020-12-17 13:32 | NUR ---
Patient stable for discharge per MD orders. All discharge instructions reviewed with patient, all questions answered. New Rx called into pharmacy and/or transmitted to pharmacy. PIV discontinued. respiratory support technician discontinued and returned to telemetry box. Belongings collected and sent with patient. Patient to lobby via w/c. Assisted into private vehicle and left with spouse.
[2020-12-17] MEDS ORDERED: MORP30TA60 PO (17:02)
== END 2020-12-17 14:07 | disposition home health service (06) | DRG 981 ==
LOC: ER 17:12 → UNDOADMIN 20:56 → ICU 2S 20:56 → PCU 3S 12-12 15:25
PROVIDERS: ADMIT Surgery; ATTEND Surgery
PROC: 04V43DZ Restriction of Splenic Artery with Intraluminal Device, Percutaneous Approach (ICD-10-PCS; principal; 2020-12-10)
PROC: 30233N1 Transfusion of Nonautologous Red Blood Cells into Peripheral Vein, Percutaneous Approach (ICD-10-PCS; 2020-12-10)
PROC: B41F1ZZ Fluoroscopy of Right Lower Extremity Arteries using Low Osmolar Contrast (ICD-10-PCS; 2020-12-10)
DX: S36.032A Major laceration of spleen, initial encounter (principal); R65.11 Systemic inflammatory response syndrome (SIRS) of non-infectious origin with acute organ dysfunction; N17.9 Acute kidney failure, unspecified; D62 Acute posthemorrhagic anemia; C7A.00 Malignant carcinoid tumor of unspecified site; N18.9 Chronic kidney disease, unspecified; D72.828 Other elevated white blood cell count; E86.0 Dehydration; G89.4 Chronic pain syndrome; I12.9 Hypertensive chronic kidney disease with stage 1 through stage 4 chronic kidney disease, or unspecified chronic kidney disease; J44.9 Chronic obstructive pulmonary disease, unspecified; K43.2 Incisional hernia without obstruction or gangrene; K59.00 Constipation, unspecified; R79.89 Other specified abnormal findings of blood chemistry; W18.39XA Other fall on same level, initial encounter; Z20.822 Contact with and (suspected) exposure to COVID-19; Y93.89 Activity, other specified; Y92.89 Other specified places as the place of occurrence of the external cause; Y99.8 Other external cause status; Z82.0 Family history of epilepsy and other diseases of the nervous system; Z88.8 Allergy status to other drugs, medicaments and biological substances; Z88.1 Allergy status to other antibiotic agents; Z88.6 Allergy status to analgesic agent; Z91.030 Bee allergy status; Z79.899 Other long term (current) drug therapy; Z80.9 Family history of malignant neoplasm, unspecified
CPT/HCPCS: 36245; 36415; 36430; 37244; 74174; 74176; 75726; 80048; 80053; 81003; 82948; 83605; 84145; 85007; 85008; 85025; 85027; 85610; 85730; 86885; 86900; 86901; 86920; 87040; 87081; 87635; 90648; 90732; 94640; 94760; 97116; 97161; 97530; 99152; 99153; 99291; C1760; C1769; C1894; G0269; G0378; J0360; J1644; J1940; J2212; J2250; J2270; J2405; J3010; J3490; J7030; P9016; Q9967